=== PATIENT | female | born 1985 | race Caucasian/White ===

== ENCOUNTER 2018-09-20 05:17 | Emergency (ER) | payer MEDICAID, OTHER ==
[~2018-09-20] VITALS: Ht 154.9 cm; Wt 67.3 kg
[2018-09-20 05:18] VITALS: BP 115/58
[2018-09-20] MEDS ORDERED: LAMO200T2 (05:31)
[2018-09-20] MEDS ORDERED: CETI10TA (05:31)
[2018-09-20] MEDS ORDERED: LEVOTAB10 (05:31)
[2018-09-20] MEDS ORDERED: [UNRECOGNIZED DRUG - CODE] (05:31)
[2018-09-20] MEDS ORDERED: DICL100T6 (05:31)
[2018-09-20] MEDS ORDERED: ADDE25CA (05:31)
[2018-09-20] MEDS ORDERED: TOPI50TA9 (05:31)
[2018-09-20] MEDS ORDERED: TOPI25TA10 (05:31)
[2018-09-20] MEDS ORDERED: BUSP5TA (05:31)
[2018-09-20] MEDS ORDERED: AMOX500C (05:31)
[2018-09-20] MEDS ORDERED: CLON0.2T (05:31)
[2018-09-20] MEDS ORDERED: BUPR150T3 (05:31)
[2018-09-20] MEDS ORDERED: IBUP1TAB7 PO (09:18)
[2018-09-20] MEDS ORDERED: CLEO300C2 PO ×2 (09:18→09:26)
[2018-09-20] MEDS ORDERED: MUPI2OI TOP ×2 (09:18→09:26)
[2018-09-20] MEDS ORDERED: IBUP80TA PO (09:26)
== END 2018-09-20 09:31 | disposition home or self-care (01) ==
LOC: M ED 05:17
DX: L03.012 Cellulitis of left finger (principal); F17.200 Nicotine dependence, unspecified, uncomplicated; Z88.8 Allergy status to other drugs, medicaments and biological substances; Z88.2 Allergy status to sulfonamides; Z79.899 Other long term (current) drug therapy; Z79.2 Long term (current) use of antibiotics

== ENCOUNTER 2020-06-29 20:42 | Emergency (ER) | payer OTHER ==
[~2020-06-29] VITALS: Ht 154.9 cm; Wt 75.3 kg
[~2020-06-29 20:42] MED LIST: ADDE25CA; AMOX500C; BUPR150T3; BUSP5TA; CETI10TA; CLEO300C2 PO; CLON0.2T; DICL100T6; IBUP1TAB7 PO; IBUP80TA PO; LAMO200T3; LEVOTAB10; MUPI2OI TOP; TOPI25TA10; TOPI50TA9; [UNRECOGNIZED DRUG - CODE]
[2020-06-29] MEDS ORDERED: LOVE1INJ SC (20:53)
[2020-06-29] MEDS ORDERED: ACETAMINOPHEN TAB 650MG DOSE (2X325MG) PO ONE (21:45)
--- NOTE | 2020-06-29 22:32 | REPVR ---
PROCEDURE INFORMATION: Exam: XR Left Finger(s) Exam date and time: 06/29/2020 10:05 PM Age: 34 years old Clinical indication: Pain and injury or trauma; Other: Slammed 4th digit in door; Crushing; Left; Ring finger; Finger(s); Additional info: Slammed L ring finger in door TECHNIQUE: Imaging protocol: XR Left fingers. Views: Minimum 2 views. COMPARISON: No relevant prior studies available. FINDINGS: Bones/joints: Normal. Soft tissues: Normal. IMPRESSION: No acute osseous abnormality. Electronically signed by: Dayron Arnold On 06/29/2020 22:32:10 PM
[2020-06-29 22:47] VITALS: BP 109/76
== END 2020-06-29 23:00 | disposition home or self-care (01) ==
LOC: M ED 20:42
DX: S60.042A Contusion of left ring finger without damage to nail, initial encounter (principal); W23.0XXA Caught, crushed, jammed, or pinched between moving objects, initial encounter; Y92.89 Other specified places as the place of occurrence of the external cause; D68.0 Von Willebrand disease; Z79.899 Other long term (current) drug therapy; Z88.1 Allergy status to other antibiotic agents; Z88.2 Allergy status to sulfonamides; Z88.8 Allergy status to other drugs, medicaments and biological substances; F17.210 Nicotine dependence, cigarettes, uncomplicated

== ENCOUNTER → 2020-08-18 | Outpatient (CLI) | payer OTHER ==
[~2020-08-18] MED LIST changes: -BUPR150T3; +BUPR150T4; +LOVE1INJ SC
[2020-08-18 19:13] LABS: BASO # 0.1 10^3/uL (0.0-0.2); BASO % 0.9 % (0.0-1.0); EOS # 0.5 10^3/uL (0.0-0.5); EOS % 9.2 % (0.0-3.0); HEMATOCRIT 46.5 % (36.0-47.0); HEMOGLOBIN 14.7 g/dl (12.0-15.5); LYMPH # 2.1 10^3/uL (1.5-5.0); MEAN CORPUSCULAR HEMOGLOBIN 29.5 pg (27.0-33.0); MEAN CORPUSCULAR HGB CONC 31.6 g/dl (32.0-36.5); MEAN CORPUSCULAR VOLUME 93.2 fl (80.0-96.0); MONO # 0.5 10^3/uL (0.0-0.8); MONO % 9.2 % (0.0-5.0); NEUTROPHILS # 2.4 10^3/uL (1.5-8.5); NEUTROPHILS % 43.5 % (36.0-66.0); PLATELET COUNT, AUTOMATED 284 10^3/uL (150-450); RED BLOOD COUNT 4.99 10^6/uL (4.00-5.40); WHITE BLOOD COUNT 5.6 10^3/uL (4.0-10.0)
[2020-08-18 19:43] LABS: ALBUMIN 3.7 GM/DL (3.2-5.2); ALT/SGPT 69 U/L (12-78); BILIRUBIN,TOTAL 0.2 MG/DL (0.2-1.0); BLOOD UREA NITROGEN 9 MG/DL (7-18); CALCIUM LEVEL 9.1 MG/DL (8.5-10.1); CARBON DIOXIDE LEVEL 28 MEQ/L (21-32); CHLORIDE LEVEL 106 MEQ/L (98-107); GLOMERULAR FILTRATION RATE > 60.0 (>60); GLUCOSE, FASTING 101 MG/DL (70-100); POTASSIUM SERUM 4.2 MEQ/L (3.5-5.1); SODIUM LEVEL 140 MEQ/L (136-145); TOTAL PROTEIN 6.8 GM/DL (6.4-8.2)
== END ==
LOC: M LAB 18:39
PROVIDERS: ATTEND Internal Medicine Hematology & Oncology
DX: D68.61 Antiphospholipid syndrome (principal); R94.5 Abnormal results of liver function studies

== ENCOUNTER 2020-08-29 22:12 | Emergency (ER) | payer OTHER ==
[~2020-08-29] VITALS: Ht 154.9 cm; Wt 79.2 kg
--- OUTSIDE RECORDS SUMMARY | 2020-08-29 22:21 | CCD ---
Author Author Aditi Garrido Organization Unknown Address [address] [place] [address] Phone Care Team Providers Care Swimming Pool Installer Name Role Phone Hema Winnie PCP Allergies, Adverse Reactions, Alerts No Data in Section Problem List Concept Problem Description Status Start Date Created Date Resolv ed Date Snomed Code F43.12 Post-traumatic stress disorder, chronic Active 08/16/2020 F90.2 Attention-Deficit/Hyperactivity Disorder, Combined pre sentation Active 08/16/2020 Medications No Data in Section Social History Social History Element Description Concept Effective Date Smoking Status Unknown if ever smoked [id number] Immunizations No Data in Section Vital Signs No Data in Section Procedures Date Concept Id Description Targeted Site Concept Targeted Site Concept Type 08/15/2020 75917 Extended Individual Psychotherapy - 45 min CPT Patient has no history of implantable de vices Encounters Encounter Start Date End Date Encounter Type Description Diagnosis Di agnosis Desc Location Author First Name Author Last Name Npid Taxonomy Cod e Taxonomy Desc Phone Number Location Addr1 Location Addr2 Location [facility] Location [facility] [id number] 08/15/2020 08/15/2020 97370 Extended Individual Psych otherapy - 45 min F43.12 Post-traumatic stress disorder, chronic [facility] Hema Zhou [id number] Student in an O rganized Health Care Education/Training Program [id number] [address], [address] [facility] [address] Plan of Treatment No Data in Section Lab Results No Data in Section Instructions No Data in Section Insurance Providers Insurance Id Policy Effective Date Policy Thru Date Company N kyler [id number] 2020 [facility] e [id number] 2020 MEDICAID
--- OUTSIDE RECORDS SUMMARY | 2020-08-29 22:21 | CCD | Continuity of Care Document ---
Author Author [facility] Organization [facility] Address Unknown Phone Unavailable Care Team Providers Care Coke Drawer Name Role Phone Patricio KENDALL, Mercy Unavailable Unavailable Allergies, Adverse Reactions, Alerts Substance Reaction Status Criticality permethrin Active No Information HYDROXYCHLOROQUINE SULFATE Active No In formation PROGESTERONE, MICRONIZED Active No Info rmation HYDROXYCHLOROQUINE SULFATE Active No In formation Sulfa (Sulfonamide Antibiotics) Hives/Skin Ra sh Active No Information Medications Medication Instructions Dosage Effective Dates (start - stop) Sta tus Comments Wellbutrin XL 150 mg 24 hr tablet, extended release ta ke 1 tablet by oral route every day 150 MG - Active danazol 100 mg capsule take 1 capsule by oral route 2 times ever y day 100 MG - Active buspirone 10 mg tablet take 1 tablet by oral route 2 times every da y 10 MG - Active Lamictal 200 mg tablet take 1 tablet by oral route 2 times every da y 200 MG - Active clonidine HCl 0.1 mg tablet take 2 tablet by oral route 3 ti mes every day 0.2 MG - Active Zyrtec 10 mg capsule - Active buspirone 5 mg tablet take 1 tablet by oral route 2 times every day 5 MG - No Longer Active Adderall XR 25 mg capsule,extended release take 1 caps ule by oral route 2 times every day in the morning upon awakening 25 MG - No Longe r Active Wellbutrin 75 mg tablet take 1 tablet by oral route 3 times ever y day - No Longer Active Topamax 50 mg tablet take 1 tablet by oral route every day 50 M G - No Longer Active danazol 50 mg capsule take 1 capsule by oral route 2 times every day 50 MG - No Longer Active Problems Condition Effective Dates (start - stop) Clinical Status C omments Body mass index (BMI) 34.0-34.9, adult - Encounter for other general examination Raynaud's syndrome without gangrene Attention-deficit hyperactivity disorder, unspecified type Unspecified asthma, uncomplicated Endometriosis, unspecified Activated protein C resistance Personal history of other venous thrombosis and embolism Anxiety disorder, unspecified Major depressive disorder, single episode, unspecified Migraine w/o aura, not intractable, w/o status migrainosus Encntr screen for infections w sexl mode of transmiss Encounter for screening for human immunodeficiency virus Human immunodeficiency virus [HIV] counseling Other sex counseling Encounter for oth general cnsl and advice on contraception Encounter for test, result negative Encounter for oth general cnsl and advice on contraception Human immunodeficiency virus [HIV] counseling Other sex counseling Encntr for survey and mapping technician exam (general) (routine) w/o abn findings Encntr screen for infections w sexl mode of transmiss Other sex counseling Encntr screen for infections w sexl mode of transmiss High risk heterosexual behavior Encounter for oth general cnsl and advice on contraception Human immunodeficiency virus [HIV] counseling HIV Counseling HOME CARE RN Exam, Routine WWE STI Screening STI Counseling Atypical squamous cells of undetermined significance on cervical Papanicolaou smear - Active Procedures Procedure Date Est Pt PC Exp Prob Focused CVR Hot Worker.Svc. Other Results Test Name Date and Time Measure Units Reference Range Abnormal Flag St atus Comments No Information Advance Directives Directive Yes / No Effective Date File Name No Information Encounters Encounter Description Practice Location Reason(s) For Visit Diagnose s Date Provider Providers Copied on Encounter [facility], [address], [place], [id number], [place] tel:[phone] TROY Marcus Generic Primary Care (chief complaint) Encounter for other general examinationRaynaud's syndrome without gangreneAttention-deficit hyperactivity disorder, unspecified typeUnspecified asthma, uncomplicatedEndometriosis, unspecifiedActivated protein C resistance Personal history of other venous thrombosis and embolismAnxiety disorder, unspecifiedMajor depressive disorder, single episode, unspecifiedMigraine w/o aura, not intractable, w/o status migrainosus Patricio Madrid. [address] [place] [address], [id number], [place]. tel:[phone] Referring Provider: Mercy Curry, [address], [place], [id number]. tel:[phone] [facility], [address] [place] [address], [id number], [place] tel:[phone] [facility] [place] Encntr screen for i nfections w sexl mode of transmissEncounter for screening for human immunodeficiency virusHuman immunodeficiency virus [HIV] counselingOther sex counselingEncounter for oth general cnsl and advice on contraceptionEncounter for test, result negative Jorge Luis Kim. [address] [place] [address], [id number], [place]. tel:[phone] Referring Provider: Judy Kang, [address] [place] [address], [id number]. tel:[phone] [facility], [address] [place] [address], [id number], [place] tel:[phone] [facility] [place] Encounter for oth g eneral cnsl and advice on contraceptionHuman immunodeficiency virus [HIV] counselingBody mass index (BMI) 34.0-34.9, adultOther sex counselingEncntr for survey and mapping technician exam (general) (routine ) w/o abn findingsEncntr screen for infections w sexl mode of transmiss Issa Roberts. [address] [place] [address], [id number]. tel:[phone] Referring Provider: Alejandra Parsons, [address], [place], [id number]. tel:[phone] [facility], [address] [place] [address], [id number], [place] tel:[phone] [facility] [place] Other sex counselin gEncntr screen for infections w sexl mode of transmissHigh risk heterosexual behaviorEncounter for oth general cnsl and advice on contraceptionHuman immunodeficiency virus [HIV] counseling Issa Roberts. [address], [place], [id number]. tel:[phone] Referring Provider: Alejandra Parsons, [address], [place], [id number]. tel:[phone] [facility], [address], [place], [id number], [place] tel:[phone] [facility] HIV CounselingGYN E xam, Routine WWESTI ScreeningSTI Counseling Hermilaconcha Mays. [address] [place] [address], [id number], [place]. tel:[phone] Family History Family Member Diagnosis Age At Onset Mother Alcoholism Father Alcoholism Father COPD (Cause Of ) Paternal grandfather Cancer, unknown Father Diabetes mellitus Paternal grandmother Stroke Mother Lupus erythematosus Immunizations Vaccine Date Status Comments hepatitis A and hepatitis B vaccine administered Source: Other Provider tetanus toxoid, adsorbed administered Source: Other Provider measles, mumps and rubella virus vaccine adminis tered Source: Other Provider Payers Payer name Insurance type Covered libertarian ID Authorization(s ) [facility] CI [id number] Social History Type Description Quantity Date Captured Comments Alcohol Use Details Unknown Caffeine Use Details Unknown Tobacco Use Status No Information Smoking Status Never smoker Sex Female Vital Signs Date / Time: Height Weight BMI Pulse Rate Blood Pressure Temperatu re Respiratory Rate Body Surface Area Head Circumference BMI percentile Pulse Ox In haled Ox No Information Chief Complaint And Reason For Visit Most recent encounter only, dated '08/11/2020 13:00'. Generic Primary Care (chief complaint). Description: A lot of her doctors are fa r away as she lives in [place] and her providers are in [place]/ [place]. She n eeds another refill danazol. Would like help finding a oracle wms consultant because of factor 5. Is supposed to be on lovenox injections every 12 hours but has been ou t for almost a week. Reason For Referral Reason For Referral No Information Plan Of Treatment Date Type Action Status Goal Dietary management education, gu idance, and counseling completed Referral Referred To: Dairy Tester Ordered: Referrals: Other. Dairy Tester. Evaluate and treat Appointment date/timeframe: 1 Week ordered History Of Present Illness Encounter Date Complaint History Of Present Marianne toussaint Generic Primary Care A lot of her doctor s are far away as she lives in [place] and her providers are in [place]/ [place]. She needs another refill danazol. Would like help finding a oracle wms consultant because of factor 5. Is heath pposed to be on lovenox injections every 12 hours but has been out for almost a week. Functional Status Date Functional Assessment No Information Medications Administered Medication Instructions Dosage Effective Dates (start - stop) Sta tus Comments No Information Instructions Date Instruction Additional Informati on Dietary management education, guidance, and counseling Related to Body mass index (BMI) 34.0-34.9, adult Assessments Type Assessment Date No Information Goals Health Concern Goal Type Priority Status Date No Information Medical Equipment Description Device [place] Device Identifier Effective Julio es (start - stop) Status No Information Mental Status Date Cognitive Assessment Orientation - Oriented to ti me, place, person, situation.Normal Orientation Health Concerns Observation Date No Information Concern Status Date No Information Physical Examination Exam Findings Details Neurological Normal Level of consciousne ss - Normal. Orientation - Normal. Psychiatric Normal Orientation - [place] ed to time, place, person & situation.
--- OUTSIDE RECORDS SUMMARY | 2020-08-29 22:21 | CCD ---
Author Author Aditi Garrido Organization Unknown Address [address] [place] [address] Phone Care Team Providers Care As400 Programmer Analyst Name Role Phone Hema Winnie PCP Allergies, Adverse Reactions, Alerts No Data in Section Problem List Concept Problem Description Status Start Date Created Date Resolv ed Date Snomed Code F43.12 Post-traumatic stress disorder, chronic Active 08/15/2020 F90.2 Attention-Deficit/Hyperactivity Disorder, Combined pre sentation Active 08/15/2020 Medications No Data in Section Social History Social History Element Description Concept Effective Date Smoking Status Unknown if ever smoked [id number] Immunizations No Data in Section Vital Signs No Data in Section Procedures Date Concept Id Description Targeted Site Concept Targeted Site Concept Type 08/15/2020 59958 Extended Individual Psychotherapy - 45 min CPT Patient has no history of implantable de vices Encounters Encounter Start Date End Date Encounter Type Description Diagnosis Di agnosis Desc Location Author First Name Author Last Name Npid Taxonomy Cod e Taxonomy Desc Phone Number Location Addr1 Location Addr2 Location [facility] [place] Location [facility] Location [facility] [id number] 08/15/2020 08/15/2020 82628 Extended Individual Psych otherapy - 45 min F43.12 Post-traumatic stress disorder, chronic [facility] Hema Zhou [id number] Student in an O rganized Health Care Education/Training Program [id number] [address], [place] [address] [facility] [address] Plan of Treatment No Data in Section Lab Results No Data in Section Instructions No Data in Section Insurance Providers Insurance Id Policy Effective Date Policy Thru Date Company N kyler [id number] 2020 [facility] e [id number] 2020 MEDICAID
--- OUTSIDE RECORDS SUMMARY | 2020-08-29 22:21 | CCD | Continuity of Care Document ---
Author Author [facility] Organization [facility] Address Unknown Phone Unavailable Care Team Providers Care Maintenance Parts Technician Name Role Phone Maritza James MD Unavailable Unavailable Allergies, Adverse Reactions, Alerts Substance [...] Active Zyrtec 10 mg capsule - Active Problems Condition Effective Dates (start - stop) Clinical Status C edithments Body mass index (BMI) 34.0-34.9, adult - [...] [HIV] counseling Other sex counseling Encntr for director of religious life exam (general) (routine) w/o abn findings Encntr screen for infections w sexl mode of transmiss Other sex counseling Encntr screen for infections w sexl mode of transmiss High risk heterosexual behavior Encounter for oth general cnsl and advice on contraception Human immunodeficiency virus [HIV] counseling HIV Counseling HABILITATION ASSISTANT Exam, Routine WWE STI Screening STI Counseling Atypical squamous cells of undetermined significance on cervical Papanicolaou smear - Active Procedures Procedure Date No Information Results Test Name Date and Time Measure Units Reference Range Abnormal Flag St atus Comments No Information Advance Directives Directive Yes / No Effective Date File Name No Information Encounters Encounter Description Practice Location Reason(s) For Visit Diagnose s Date Provider Providers Copied on Encounter [facility], [address] [place] [address], [address] [place] [address], tel:[phone] TROY Marcus No Information Jacob Salas. [address] [place] [address], [id number], . tel:[phone] [facility], [address] [place] [address], [id number], tel:[phone] TROY Marcus Encounter for other general examinationRaynaud's syndrome without gangreneAttention-deficit hyperactivity disorder, unspecified typeUnspecified asthma, uncomplicatedEndometriosis, unspecifiedActivated protein C resistancePersonal history of other venous thrombosis and embolismAnxiety disorder, unspecifiedMajor depressive disorder, single episode, unspecifiedMigraine w/o aura, not intractable, w/o status migrainosus Patricio Madrid. [address] [place] [address], [id number], . tel:[phone] Referring Provider: Mercy Curry, [address] [place] [address], [id number]. tel:[phone] [facility], [address] [place] [address], [id number], [place] tel:[phone] [facility] [place] Encntr screen for i nfections w sexl mode of transmissEncounter for screening for human immunodeficiency virusHuman immunodeficiency virus [HIV] counselingOther sex counselingEncounter for oth general cnsl and advice on contraceptionEncounter for test, result negative Jorge Luis Kim. [address] [place] [address], [id number], [place]. tel:[phone] Referring Provider: Judy Kang, [address] [place] [address], [id number]. tel:[phone] [facility], [address] [place] [address], [id number], [place] tel:[phone] [facility] [place] Encounter for oth g eneral cnsl and advice on contraceptionHuman immunodeficiency virus [HIV] counselingBody mass index (BMI) 34.0-34.9, adultOther sex counselingEncntr for director of religious life exam (general) (routine ) w/o abn findingsEncntr screen for infections w sexl mode of transmiss Issa Roberts. [address] [place] [address], [id number]. tel:[phone] Referring Provider: Alejandra Parsons, [address] [place] [address], [id number]. tel:[phone] [facility], [address] [place] [address], [id number], [place] tel:[phone] [facility] [place] Other sex counselin gEncntr screen for infections w sexl mode of transmissHigh risk heterosexual behaviorEncounter for oth general cnsl and advice on contraceptionHuman immunodeficiency virus [HIV] counseling Issa Roberts. [address] [place] [address], [id number]. tel:[phone] Referring Provider: Alejandra Parsons, [address] [place] [address], [id number]. tel:[phone] [facility], [address] [place] [address], [id number], tel:[phone] JOSSUEVICTOR M Cortes HIV CounselingIRON E hill, Routine WWESTI ScreeningSTI Counseling eHrmilaconcha Mays. [address], [place], [id number], . tel:[phone] Family History Family Member Diagnosis Age At [...] Provider Payers Payer name Insurance type Covered republican ID Authorization(s ) [facility] CI [id number] Social History Type Description Quantity Date Captured Comments Alcohol Use Details Unknown Caffeine Use Details Unknown Tobacco Use Status No Information Smoking Status Never smoker Sex Female Vital Signs Date / Time: Height Weight BMI Pulse Rate Blood Pressure Temperatu re Respiratory Rate Body Surface Area Head Circumference BMI percentile Pulse Ox In haled Ox No Information Chief Complaint And Reason For Visit No Information Reason For Referral Reason For Referral No Information Plan Of Treatment Date Type Action Status Goal Dietary management education, gu idance, and counseling completed Referral Referred To: Diamond Sizer Ordered: Referrals: Other. Diamond Sizer. Evaluate and treat Appointment date/timeframe: 1 Week ordered History Of Present Illness Encounter Date Complaint History Of Present I llness No Information Functional Status Date Functional Assessment No Information Medications Administered Medication Instructions Dosage Effective Dates (start - stop) Sta tu Comments No Information Instructions Date Instruction Additional Informati on Dietary management education, guidance, and counseling Related to Body mass index (BMI) 34.0-34.9, adult Assessments Type Assessment Date No Information Goals Health Concern Goal Type Priority Status Date No Information Medical Equipment Description Device [place] Device Identifier Effective Julio es (start - stop) Status No Information Mental Status Date Cognitive Assessment No Information Health Concerns Observation Date No Information Concern Status Date No Information Physical Examination Exam Findings Details No Information
--- OUTSIDE RECORDS SUMMARY | 2020-08-29 22:22 | CCD ---
Author Author Aditi Arechiga Organization Unknown Address [address] [address] Phone Care Team Providers Care Human Resources Receptionist Name Role Phone Marielena Arechiga PCP Chief Complaint and Reason for Visit Chief Complaint Allergies, Adverse Reactions, Alerts No Data in Section Problem List Concept Problem Description Status Start Date Created Date Resolv ed Date Snomed Code F43.9 Unspecified Trauma- and Stressor-Related Disorder Active 07/26/2020 Medications No Data in Section Social History Social History Element Description Concept Effective Date Smoking Status Unknown if ever smoked [id number] Immunizations No Data in Section Vital Signs No Data in Section Procedures Date Concept Id Description Targeted Site Concept Targeted Site Concept Type 07/25/2020 83070 Brief Individual Psychotherapy - 30 min CPT Patient has no history of implantable de vices Encounters Encounter Start Date End Date Encounter Type Description Diagnosis Di agnosis Desc Location Author First Name Author Last Name Npid Taxonomy Cod e Taxonomy Desc Phone Number Location Addr1 Location Addr2 Location [facility] Location [facility] Location [facility] [id number] 07/25/2020 07/25/2020 81326 Brief Individual Psychoth erapy - 30 min F43.9 Reaction to severe stress, unspecified [facility] Marielena [phone] [id number] Wound Care Specialist [id number] [address], [place] 1 [facility] [address] Plan of Treatment No Data in Section Lab Results No Data in Section Instructions No Data in Section Insurance Providers Insurance Id Policy Effective Date Policy Thru Date Company N kyler [id number] 2020 [facility] e [id number] 2020 MEDICAID
--- OUTSIDE RECORDS SUMMARY | 2020-08-29 22:22 | CCD ---
Author Author [facility] Organization [facility] Address Unknown Phone Unavailable Care Team Providers Care Supervisor [employer] Name Role Phone PIIT, CARMELI FLOS Unavailable Unavailable PIIT, CARMELI FLOS Unavailable Unavailable PIIT, CARMELI FLOS Unavailable Unavailable PIIT, CARMELI FLOS Unavailable Unavailable PIIT, CARMELI FLOS Unavailable Unavailable PIIT, CARMELI FLOS Unavailable Unavailable PIIT, CARMELI FLOS Unavailable Unavailable PIIT, CARMELI FLOS Unavailable Unavailable PIIT, CARMELI FLOS Unavailable Unavailable PIIT, CARMELI FLOS Unavailable Unavailable PIIT, CARMELI FLOS Unavailable Unavailable PIIT, CARMELI FLOS Unavailable Unavailable PIIT, CARMELI FLOS Unavailable Unavailable PIIT, CARMELI FLOS Unavailable Unavailable PIIT, CARMELI FLOS Unavailable Unavailable PIIT, CARMELI FLOS Unavailable Unavailable PIIT, CARMELI FLOS Unavailable Unavailable PIIT, CARMELI FLOS Unavailable Unavailable PIIT, CARMELI FLOS Unavailable Unavailable PIIT, CARMELI FLOS Unavailable Unavailable PIIT, CARMELI FLOS Unavailable Unavailable PIIT, CARMELI FLOS Unavailable Unavailable PIIT, CARMELI FLOS Unavailable Unavailable PIIT, CARMELI FLOS Unavailable Unavailable PIIT, CARMELI FLOS Unavailable Unavailable Raudel Tejada MD Unavailable Unavailable Raudel Tejada MD Unavailable Unavailable Raudel Tejada MD Unavailable Unavailable Raudel Tejada MD Unavailable Unavailable Raudel Tejada MD Unavailable Unavailable Wayne Henning D.O. Unavailable Unavailable Delmy Garcia ART HISTORY INSTRUCTOR Unavailable Unavailable KENROY PHELPS MD Unavailable Unavailable HERO GARCIA Unavailable Unavailable HERO GARCIA Unavailable Unavailable HERO GARCIA ESTELA Unavailable Unavailable Kocan, J Mago ELECTRIC PILE DRIVER OPERATOR Unavailable Unavailable Kocan, J Mago ELECTRIC PILE DRIVER OPERATOR Unavailable Unavailable Kocan, J Mago ELECTRIC PILE DRIVER OPERATOR Unavailable Unavailable Kocan, J Mago ELECTRIC PILE DRIVER OPERATOR Unavailable Unavailable Kocan, J Mago ELECTRIC PILE DRIVER OPERATOR Unavailable Unavailable Kocan, J Mago ELECTRIC PILE DRIVER OPERATOR Unavailable Unavailable Kocan, J Mago ELECTRIC PILE DRIVER OPERATOR Unavailable Unavailable Kocan, J Mago ELECTRIC PILE DRIVER OPERATOR Unavailable Unavailable Kocan, J Mago ELECTRIC PILE DRIVER OPERATOR Unavailable Unavailable Kocan, J Mago ELECTRIC PILE DRIVER OPERATOR Unavailable Unavailable Kocan, J Mago ELECTRIC PILE DRIVER OPERATOR Unavailable Unavailable Kocan, J Mago ELECTRIC PILE DRIVER OPERATOR Unavailable Unavailable Kocan, J Mago ELECTRIC PILE DRIVER OPERATOR Unavailable Unavailable Emily Phelps M.D. Unavailable Unavailable Cas Orellana MD Unavailable Unavailable Papo, M Nancy VIDEOTAPE EDITOR Unavailable Papo, M Nancy VIDEOTAPE EDITOR Unavailable Papo, M Nancy VIDEOTAPE EDITOR Unavailable Papo, M Nancy VIDEOTAPE EDITOR Unavailable Papo, M Nancy VIDEOTAPE EDITOR Unavailable Barros, M Nancy VIDEOTAPE EDITOR Unavailable Barros, M Nancy VIDEOTAPE EDITOR Unavailable Papo, M Nancy VIDEOTAPE EDITOR Unavailable Esteban, [id number] MD Cas PATIÑO Unavailable [phone] Esteban, [id number] MD Cas PATIÑO Unavailable [phone] Esteban, [id number] MD Cas PATIÑO Unavailable [phone] Esteban, [id number] MD Cas PATIÑO Unavailable [phone] Esteban, [id number] MD Cas MD Unavailable Esteban, [id number] MD Acs MD Unavailable Esteban, [id number] MD Cas MD Unavailable Esteban, [id number] MD Csa MD Unavailable Esteban, [id number] MD Cas MD Unavailable Esteban, [id number] MD Cas MD Unavailable Esteban, [id number] MD Cas MD Unavailable Esteban, [id number] MD Cas MD Unavailable Esteban, [id number] MD Cas MD Unavailable Esteban, [id number] MD Cas MD Unavailable Esteban, [id number] MD Cas MD Unavailable Esteban, [id number] MD Cas MD Unavailable Esteban, [id number] MD Cas MD Unavailable Esteban, [id number] MD Cas MD Unavailable Esteban, [id number] MD Cas MD Unavailable Esteban, [id number] MD Cas MD Unavailable Esteban, [id number] MD Cas MD Unavailable Esteban, [id number] MD Cas MD Unavailable Esteban, [id number] MD Cas MD Unavailable Esteban, [id number] MD Cas MD Unavailable Esteban, [id number] MD Cas MD Unavailable Esteban, [id number] MD Cas MD Unavailable Esteban, [id number] MD Cas MD Unavailable [phone] Esteban, [id number] MD Cas PATIÑO Unavailable [phone] Esteban, [id number] MD Cas PATIÑO Unavailable [phone] Esteban, [id number] MD Cas PATIÑO Unavailable [phone] Esteban, [id number] MD Cas PATIÑO Unavailable [phone] NOSTROM, AMY ART HISTORY INSTRUCTOR Unavailable Unavailable NOSTROM, AMY ART HISTORY INSTRUCTOR Unavailable Unavailable NOSTROM, AMY ART HISTORY INSTRUCTOR Unavailable Unavailable NOSTROM, AMY ART HISTORY INSTRUCTOR Unavailable Unavailable NOSTROM, AMY ART HISTORY INSTRUCTOR Unavailable Unavailable NOSTROM, AMY ART HISTORY INSTRUCTOR Unavailable Unavailable NOSTROM, AMY ART HISTORY INSTRUCTOR Unavailable Unavailable NOSTROM, AMY ART HISTORY INSTRUCTOR Unavailable Unavailable NOSTROM, AMY ART HISTORY INSTRUCTOR Unavailable Unavailable NOSTROM, AMY ART HISTORY INSTRUCTOR Unavailable Unavailable NOSTROM, AMY ART HISTORY INSTRUCTOR Unavailable Unavailable NOSTROM, AMY ART HISTORY INSTRUCTOR Unavailable Unavailable NOSTROM, AMY ART HISTORY INSTRUCTOR Unavailable Unavailable Wayne Huerta D.O. Unavailable Unavailable Curry, Mercy Unavailable Unavailable Curry, Mercy Unavailable Unavailable Curry, Mercy Unavailable Unavailable ConteJuan parry MD Unavailable [phone] Conte, Juan PATIÑO Unavailable [phone] Conte, Juan PATIÑO Unavailable [phone] Conte, Juan PATIÑO Unavailable [phone] ConteJuan MD Unavailable [phone] ConteJuan MD Unavailable [phone] Conte, Juan PATIÑO Unavailable [phone] ConteJuan MD Unavailable [phone] Conte, Juan PATIÑO Unavailable [phone] Mya James MD Unavailable Unavailable Nostrom, R Amy ELECTRIC PILE DRIVER OPERATOR Unavailable Unavailable Winnie Garrido Unavailable Emily Shah M.D. Unavailable Unavailable Emily Shah M.D. Unavailable Unavailable Emily Shah M.D. Unavailable Unavailable Juan Conte MD Unavailable Unavailable Marielena Arechiga Unavailable Jacob, Mya Balderas MD Unavailable Unavailable Jacob, Mya Balderas MD Unavailable Unavailable Emily Vásquez M.D. Unavailable Unavailable Emily Vásquez M.D. Unavailable Unavailable Emily Vásquez M.D. Unavailable Unavailable Emily Vásquez M.D. Unavailable Unavailable Emily Vásquez M.D. Unavailable Unavailable Emily Devlin M.D. Unavailable Unavailable Jacob, Mya Salas MD Unavailable Unavailable Jacob, Mya Salas MD Unavailable Unavailable Jacob, Mya Salas MD Unavailable Unavailable Jacob, Mya Salas MD Unavailable Unavailable Jacob, Mya Salas MD Unavailable Unavailable Jacob, Mya Salas MD Unavailable Unavailable Jacob, Mya Salas MD Unavailable Unavailable Jacob, Mya Salas MD Unavailable Unavailable Jacob, Mya Salas MD Unavailable Unavailable Jacob, Mya Salas MD Unavailable Unavailable Jacob, Mya Salas MD Unavailable Unavailable Jacob, Mya Salas MD Unavailable Unavailable Jacob, Mya Salas MD Unavailable Unavailable Jacob, Mya Salas MD Unavailable Unavailable Jacob, Mya Salas MD Unavailable Unavailable Jacob, Mya Salas MD Unavailable Unavailable Jacob, Mya Salas MD Unavailable Unavailable Jacob, Mya Salas MD Unavailable Unavailable Jacob, Mya Salas MD Unavailable Unavailable Jacob, Mya Salas MD Unavailable Unavailable Jacob, May Salas MD Unavailable Unavailable Jacob, Mya Salas MD Unavailable Unavailable Jacob, Mya Salas MD Unavailable Unavailable Jacob, Mya Salas MD Unavailable Unavailable Jacob, Mya Salas MD Unavailable Unavailable Jacob, Mya Salas MD Unavailable Unavailable Jacob, Mya Salas MD Unavailable Unavailable Jacob, Mya Salas MD Unavailable Unavailable Jacob, Mya Salas MD Unavailable Unavailable Jacob, Mya Salas MD Unavailable Unavailable Jacob, Mya Salas MD Unavailable Unavailable Jacob, Mya Salas MD Unavailable Unavailable Jacob, Mya Salas MD Unavailable Unavailable Jacob, Mya Salas MD Unavailable Unavailable Jacob, Mya Salas MD Unavailable Unavailable Jacob, Mya Salas MD Unavailable Unavailable Jacob, Mya Salas MD Unavailable Unavailable Jacob, A Maritza PATIÑO Unavailable Unavailable Jacob, A Maritza PATIÑO Unavailable Unavailable Jacob, Mya Salas MD Unavailable Unavailable Jacob, Mya Salas MD Unavailable Unavailable Jacob, Mya Salas MD Unavailable Unavailable Jacob, Mya Salas MD Unavailable Unavailable Jacob, Mya Salas MD Unavailable Unavailable Jacob, Mya Salas MD Unavailable Unavailable Jacob, Mya Salas MD Unavailable Unavailable Jacob, Mya Salas MD Unavailable Unavailable Jacob, Mya Salas MD Unavailable Unavailable Jacob, Mya Salas MD Unavailable Unavailable Jacob, Mya Salas MD Unavailable Unavailable Jacob, Mya Salas MD Unavailable Unavailable Jacob, Mya Salas MD Unavailable Unavailable Jacob, Mya Salas MD Unavailable Unavailable Jacob, Mya Salas MD Unavailable Unavailable Jacob, Mya Salas MD Unavailable Unavailable Jacob, Mya Salas MD Unavailable Unavailable Jacob, Mya Salas MD Unavailable Unavailable Jacob, Mya Salas MD Unavailable Unavailable Jacob, A Maritza PATIÑO Unavailable Unavailable Jacob, Mya Salas MD Unavailable Unavailable Jacob, Mya Salas MD Unavailable Unavailable Jacob, A Maritza PATIÑO Unavailable Unavailable Jacob, Mya Salas MD Unavailable Unavailable Jacob, A Maritza PATIÑO Unavailable Unavailable Jacob, Mya Salas MD Unavailable Unavailable Jacob, Mya Salas MD Unavailable Unavailable Jacob, A Maritza PATIÑO Unavailable Unavailable Jacob, Mya Salas MD Unavailable Unavailable Jacob, Mya Salas MD Unavailable Unavailable Jacob, Mya Salas MD Unavailable Unavailable Jacob, Mya Salas MD Unavailable Unavailable Jacob, Mya Salas MD Unavailable Unavailable Jacob, Mya Salas MD Unavailable Unavailable Jacob, Mya Salas MD Unavailable Unavailable Jacob, Mya Salas MD Unavailable Unavailable James Garcia MD Unavailable Unavailable James Garcia MD Unavailable Unavailable James Garcia MD Unavailable Unavailable James Garcia MD Unavailable Unavailable James Garcia MD Unavailable Unavailable James Garcia MD Unavailable Unavailable James Garcia MD Unavailable Unavailable James Garcia MD Unavailable Unavailable James Garcia MD Unavailable Unavailable James Garcia MD Unavailable Unavailable James Garcia MD Unavailable Unavailable James Garcia MD Unavailable Unavailable James Garcia MD Unavailable Unavailable DIANN MONZON MD Unavailable Unavailable DIANN MONZON MD Unavailable Unavailable DIANN MONZON MD Unavailable Unavailable DIANN MONZON MD Unavailable Unavailable DIANN MONZON MD Unavailable Unavailable DIANN MONZON MD Unavailable Unavailable DIANN MONZON MD Unavailable Unavailable DIANN MONZON MD Unavailable Unavailable DIANN MONZON MD Unavailable Unavailable DIANN MONZON MD Unavailable Unavailable DIANN MONZON MD Unavailable Unavailable DIANN MONZON MD Unavailable Unavailable DIANN MONZON MD Unavailable Unavailable DIANN MONZON MD Unavailable Unavailable DIANN MONZON MD Unavailable Unavailable DIANN MONZON MD Unavailable Unavailable Re-disclosure Warning The records that you are about to access may contain information from federally-assisted alcohol or drug abuse programs. If such information is present, then the following federally mandated warning applies: This information has been disclosed to you from records protected by federal confidentiality rules (42 CFR part 2). The federal rules prohibit you from making any further disclosure of this information unless further disclosure is expressly permitted by the written consent of the person to whom it pertains or as otherwise permitted by 42 CFR part 2. A general authorization for the release of medical or other information is NOT sufficient for this purpose. The Federal rules restrict any use of the information to criminally investigate or prosecute any alcohol or drug abuse patient.The records that you are about to access may contain highly sensitive health information, the redisclosure of which is protected by Article 27-F of the [facility] Public Health law. If you continue you may have access to information: Regarding HIV / AIDS; Provided by facilities licensed or operated by the [facility] Office of Mental Health; or Provided by the [facility] Office for People With Developmental Disabilities. If such information is present, then the following [facility] mandated warning applies: This information has been disclosed to you from confidential records which are protected by state law. State law prohibits you from making any further disclosure of this information without the specific written consent of the person to whom it pertains, or as otherwise permitted by law. Any unauthorized further disclosure in violation of state law may result in a fine or alf sentence or both. A general authorization for the release of medical or other information is NOT sufficient authorization for further disc losure. Allergies and Adverse Reactions Type Description Substance Reaction Status Data Source(s ) Drug allergy permethrin Permethrin Active [facility] Drug allergy Drug allergy Environmental [facility] Family History Family Member Name Family Member Gender Family Member Status Date o f Status Description Data Source(s) Unknown Female Diagnosis 04/04/2014 12:00:00 AM EDT [facility] ([facility]) Unknown Female Diagnosis 04/04/2014 12:00:00 AM EDT [facility] ([facility]) Unknown Unknown Problem [facility] (Dr Larry Jett) siblings and children Encounters Encounter Providers Location Date Indications Data Source(s ) Extended Individual Psychotherapy - 45 min Attender: Shaye fermin [facility] 08/29/2020 03:00:00 AM EST - 08/29/2020 03:00:00 AM EST [facility] ([facility]) Attender: Winnie Garrido 08/29/2020 12:00:00 AM EST [facility] ([facility]) Attender: Maritza Marcus 0 08/24/2020 04:54:00 PM EST - 08/24/2020 04:54:00 PM EST [facility] ([facility]) Extended Individual Psychotherapy - 45 min Attender: Shaye Garrido [facility] 08/15/2020 03:00:00 AM EST - 08/15/2020 03:00:00 AM EST [facility] ([facility]) Attender: Winnie Garrido 08/15/2020 12:00:00 AM EST [facility] ([facility]) Attender: [facility] 08/11 01:00:00 PM EST - 08/11/2020 01:00:00 PM EST Migraine w/o aura, not intractable, w/o status migrainosusMajor depressive disorder, single episode, unspecifiedAnxiety disorder, unspecifiedPersonal history of other venous thrombosis and embolismAc tivated protein C resistanceEndometriosis, unspecifiedUnspecified asthma, uncomplicatedAttention-deficit hyperactivity disorder, unspecified typeRaynaud's syndrome without gangreneEncounter for other general examination [facility] ([facility]) Migraine w/o aura, not intractable, w/o status migrainosus Major depressive disorder, single episod e, unspecified Anxiety disorder, unspecified Personal history of other venous thrombo sis and embolism Activated protein C resistance Endometriosis, unspecified Unspecified asthma, uncomplicated Attention-deficit hyperactivity disorder , unspecified type Raynaud's syndrome without gangrene Encounter for other general examination Psychiatric Diagnostic Evaluation (Non-Medical) Attender: Yvonne Garrido [facility] 08/01/2020 03:00:00 AM EST - 08/01/2020 03:00:00 AM EST [facility] ([facility]) Attender: Winnie Garrido 08/01/2020 12:00:00 AM EST [facility] ([facility]) Brief Individual Psychotherapy - 30 min Attender: Marielena bell [facility] Kandi 07/25/2020 02:00:00 AM EST - 07/25/2020 02:00:00 AM EST [facility] ([facility]) Attender: Marielena Arechiga 07/25/2020 12:00:00 AM EST [facility] ([facility]) Preadmit Attender: Juan Conte MD CPSCAORT-ONCPDMED 12:00:00 AM EST FU DVT DISCUSS DENTAL WORK [facility] FU DVT DISCUSS DENTAL WORK Emergency Attender: Himanshu Tejada MD SURG-ER 05/14 01:36:00 AM EST - 05/24/2020 06:11:00 AM EST [facility] Patient discharged. Emergency SURG-ER 05/16/2020 08:40:00 PM EST [facility]. Patient discharged. Outpatient Attender: Juan Conte MDConsultant: Farzad Phelps M.D. SURG-ULTRA 05/11/2020 10:45:00 AM EDT [facility]. Emergency Attender: Vasu Devlin M.D.Referrer: DIANN BARAHONA MD SURG-ER 05/10/2020 09:11:00 PM EDT - 05/11/2020 01:47:00 AM EDT [facility]. Patient discharged. Outpatient [facility] 05/04/2020 01:20:00 PM EDT - 05/04/2020 01:21:00 PM EDT [facility] Patient discharged. Outpatient Attender: Juan Conte MD CPSCAORT-ONCPDMED 08:27:00 AM EDT - 05/01/2020 08:28:00 AM EDT 2YR FU FACTOR v LEIDEN MUTATION [facility] 2YR FU FACTOR v LEIDEN MUTATION Patient discharged. Emergency Attender: Karel Vásquez M.D. SURG-ER 04/15 07:25:00 PM EDT - 04/16/2020 01:18:00 AM EDT [facility]. Patient discharged. Emergency Attender: Karel Vásquez M.D. SURG-ER 04/08 09:13:00 PM EDT - 04/09/2020 02:13:00 AM EDT [facility]. Patient discharged. Preadmit Attender: KENROY PHELPS MD 03/06/2020 10:56:00 AM EDT [facility] Inpatient Attender: Sherrie James MD Attender: Sherrie James MDAdmitter: Sherrie James MDConsultant: ESTELA GARCIAConsultant: Estela Garcia NPConsultant: Amy Grewal RNPConsultant: AMY GREWAL ART HISTORY INSTRUCTOR CPSCAORT-OBSERV 02/23/2020 02:13:00 PM EDT - 02/26/2020 04:40:00 PM EDT INTRACTABLE VOMITING; ENTEROCOLITIS [facility] INTRACTABLE VOMITING; ENTEROCOLITIS Patient discharged. Emergency Attender: Talib Huerta D.O. SURG-ER 09:40:00 PM EDT - 02/22/2020 06:54:00 AM EDT [facility]. Patient discharged. Emergency Attender: Estela Henning D.O. SURG-ER 12:35:00 AM EDT - 01/22/2020 04:46:00 AM EDT [facility]. Patient discharged. Outpatient Attender: PROSPER MALONEY-IMAPD 01/11/2020 1 1:18:00 AM EDT - 01/11/2020 11:19:00 AM EDT R06.02 [facility] R06.02 Patient discharged. Emergency SURG-ER 01/03/2020 04:49:00 PM EDT [facility]. Patient discharged. Outpatient Attender: Hao Garcia MD CPSCAORT-CPSCADER 0 04:15:00 PM EDT - 11/23/2019 04:16:00 PM EDT [facility] Patient discharged. Outpatient Attender: PROSPER MEJIAORT-CPSNFFPP 11/17/2019 01:43:00 PM EDT - 11/17/2019 01:44:00 PM EDT [facility] Patient discharged. Preadmit Attender: Mago MAGALLON CPSCAORT-PRSLAPT 10/19/2019 12:00:00 AM EDT RIGHT SHOULDER PAIN [facility] RIGHT SHOULDER PAIN Preadmit Attender: PROSPER THOMAS CPSCAORT-IMAPD 10/05/2019 11:00:00 AM EDT SOB [facility] SOB Outpatient Attender: Cas Orellana MDAttender: [id number] Cas Orellana MD CPSCAORT-CPSCARHE 09/21/2019 09:53:00 AM EDT - 09/21/2019 09:54:00 AM ED T I73.00 [facility] I73.00 Patient discharged. Outpatient Attender: PROSPER MONTANOCAORT-CPSNFFPP 09/14/2019 10:24:00 AM EST - 09/14/2019 10:25:00 AM EST [facility] Patient discharged. Outpatient Attender: Mago MAGALLON CPSCAORT-CPSOMPMC 12/2019 07:55:00 AM EST - 08/19/2019 07:56:00 AM EST [facility] Patient discharged. Outpatient Attender: Nancy WILLIAMP CPSCAORT-CPSCAORT 1 09:10:00 AM EST - 07/13/2019 09:11:00 AM EST [facility] Patient discharged. Emergency ER-ER 07/08/2019 11:40:00 PM [facility]. Patient discharged. [address] [place] [address] 07/05/2019 12:00:00 AM EST eCW1 ([facility]) Emergency Attender: Jonathan Shah M.D. ER-ER 03:32:00 PM EST - 06/30/2019 04:42:00 PM [facility]. Patient discharged. Medications Medication Brand Name Start Date Product Form Dose Route Admi nistrative Instructions Pharmacy Instructions Status Indications Reaction Description Data Source(s) Acetaminophen 325 MG / Oxycodone Hydroch loride 5 MG Oral Tablet [Percocet] Oxycodone HCl/Acetaminophen (Percocet 5-325 MG Tablet) 1 EACH TABLET Oxycodone HCl/Acetaminophen (Percocet 5-325 MG Tablet) 1 EACH TABLET 05/11/2020 12:00:00 AM EDT 1 completed Every 6 Hrs 05 00,1100,1700,23 as needed [facility] Acetaminophen 325 MG / Oxycodone Hydroch loride 5 MG Oral Tablet [Percocet] Oxycodone HCl/Acetaminophen (Percocet 5-325 MG Tablet) 1 EACH TABLET Oxycodone HCl/Acetaminophen (Percocet 5-325 MG Tablet) 1 EACH TABLET 05/11/2020 12:00:00 AM EDT 1 completed Every 6 Hrs 05 00,1100,1700,23 as needed [facility] Acetaminophen 325 MG / Oxycodone Hydroch loride 5 MG Oral Tablet [Percocet] Oxycodone HCl/Acetaminophen (Percocet 5-325 MG Tablet) 1 EACH TABLET Oxycodone HCl/Acetaminophen (Percocet 5-325 MG Tablet) 1 EACH TABLET 05/11/2020 12:00:00 AM EDT 1 completed Every 6 Hrs 05 00,1100,1700,23 as needed [facility] Wellbutrin 75 mg tablet bupropion HCl completed take 1 tablet by oral route 3 times every day [facility] ([facility]) Danazol 50 MG Oral Capsule danazol 50 mg capsule danazol 50 mg caps ule 1.00 {capsule} ORAL completed take 1 capsule by or al route 2 times every day [facility] ([facility]) buspirone hydrochloride 5 MG Oral Tablet buspirone 5 m g tablet buspirone 5 mg tablet 1 {tablet} ORAL completed miguelina e 1 tablet by oral route 2 times every day [facility] ([facility]) topiramate 50 MG Oral Tablet [Topamax] Topamax 50 mg t ablet Topamax 50 mg tablet 1 {tablet} ORAL completed topiramate 50 MG Oral Tablet [Topamax] [facility] ([facility]) 24 HR Amphetamine aspartate 6.25 MG / Am phetamine Sulfate 6.25 MG / Dextroamphetamine saccharate 6.25 MG / Dextroamphetamine Sulfate 6.25 MG Extended Release Oral Capsule [Adderall] Adderall XR 25 mg capsule,extended release Adderall XR 25 mg capsule,extended release 1 {capsule} O RAL completed 24 HR amphetamine as partate 6.25 MG / amphetamine sulfate 6.25 MG / dextroamphetamine saccharate 6.25 MG / dextroamphetamine sulfate 6.25 MG Extended Release Oral Capsule [Adderall] [facility] ([facility]) Insurance Providers Payer name Policy type / Coverage type Policy ID Covered libertarian ID Covered libertarian's relationship to earl Policy Earl Plan Information [employer] COMMUNITY PLAN [id number] [id number] SP [id number] [facility] NYCDFHP self [id number] [facility] COMMUNITY [id number] Unemploye d [id number] [facility](MCAID) O [id number] S [id number] [facility] COMMUNITY PLAN [id number] SP [id number] [facility] [id number] S [id number] ANSI-Commercial [id number] ANSI-Commercial [id number] [facility] COMMUNITY PLAN [id number] SP [id number] ANSI-Commercial [id number] MEDICAID [id number] SP [id number] ANSI-Commercial [id number] ANSI-Commercial [id number] [facility] [id number] S [id number] [facility] Plan Commercial [id number] Self [id number] [facility] Plan Commercial [id number] Self [id number] [facility] [place]ITY PLAN [id number] SP [id number] [facility] I [id number] Self [id number] [facility] Comm Plan Medicaid F [id number] SELF [id number] Problems, Conditions, and Diagnoses Code Display Name Description Problem Type Effective Dates Data Source(s) F90.2 Attention-deficit hyperactivity disorder , combined type Attention- Deficit/Hyperactivity Disorder, Combined presentation Condition 08/29/2020 12:00:00 AM EST [facility] ([facility]) F43.12 Post-traumatic stress disorder, chronic Post-traumatic stress disorder, chronic Condition 08/29/2020 12:00:00 AM EST [facility] ([facility]) F43.9 Reaction to severe stress, unspecified U nspecified Trauma- and Stressor- Related Disorder Condition 07/25/2020 12:00:00 AM EST [facility] ([facility]) R94.5 Abnormal results of liver function studi es ABNORMAL RESULTS OF LIVER FUNCTION STUDIES Diagnosis 05/11/2020 10:45:00 AM EDT [facility] D68.51 Activated protein C resistance ACTIVATED PROTEIN C RES ISTANCE Diagnosis 05/11/2020 10:45:00 AM EDT [facility] F90.9 Attention-deficit hyperactivity disorder , unspecified type ATTENTION- DEFICIT HYPERACTIVITY DISORDER, UNSPECIFIED TYPE Diagnosis 02/22 02:13:00 PM T [facility] R11.2 Nausea with vomiting, unspecified NAUSEA WITH VO MITING, UNSPECIFIED Diagnosis 02/23/2020 02:13:00 PM [facility] E87.6 Hypokalemia HYPOKALEMIA Diagnosis 02/23/2020 02:13:00 PM [facility] F41.8 Other specified anxiety disorders OTHER SPECIFIE D ANXIETY DISORDERS Diagnosis 02/23/2020 02:13:00 PM T [facility] F31.9 Bipolar disorder, unspecified BIPOLAR DISORDER, UNSPEC IFIED Diagnosis 02/23/2020 02:13:00 PM [facility] N80.9 Endometriosis, unspecified ENDOMETRIOSIS, UNSPECIFIED Diagnosis 02/23/2020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
--- OUTSIDE RECORDS SUMMARY | 2020-08-29 22:22 | CCD ---
Author Author Aditi Garrido Organization Unknown Address [address] [address] Phone Care Team Providers Care Galvanizer Zinc Name Role Phone Hema Winnie PCP Allergies, Adverse Reactions, Alerts No Data in Section Problem List Concept Problem Description Status Start Date Created Date Resolv ed Date Snomed Code F43.12 Post-traumatic stress disorder, chronic Active 08/01/2020 F90.2 Attention-Deficit/Hyperactivity Disorder, Combined pre sentation Active 08/01/2020 Medications No Data in Section Social History Social History Element Description Concept Effective Date Smoking Status Unknown if ever smoked [id number] Immunizations No Data in Section Vital Signs No Data in Section Procedures Date Concept Id Description Targeted Site Concept Targeted Site Concept Type 08/01/2020 86622 Psychiatric Diagnostic Evaluation (Non-Medical) CPT Patient has no history of implantable de vices Encounters Encounter Start Date End Date Encounter Type Description Diagnosis Di agnosis Desc Location Author First Name Author Last Name Npid Taxonomy Cod e Taxonomy Desc Phone Number Location Addr1 Location Addr2 Location [facility] Location [facility] Location [facility] [id number] 08/01/2020 08/01/2020 [id number] Psychiatric Marlen gnostic Evaluation (Non-Medical) F43.12 Post-traumatic stress disorder, chronic [facility] Hema Zhou [id number] Student in an Organized Health Care Education/Training Program [id number] [address] [address] Plan of Treatment No Data in Section Lab Results No Data in Section Instructions No Data in Section Insurance Providers Insurance Id Policy Effective Date Policy Thru Date Company N kyler [id number] [facility] [id number] MEDICAID
[2020-08-29] MEDS ORDERED: NAPROXEN 250 MG TAB PO ONE (23:00)
[2020-08-29] MEDS ORDERED: LIDOCAINE 4% CREAM 5GM (LMX4) TOP ONE (23:00)
--- NOTE | 2020-08-29 23:17 | REPVR ---
PROCEDURE INFORMATION: Exam: XR Right Foot Exam date and time: 08/29/2020 11:00 PM Age: 35 years old Clinical indication: Pain; Foot; Right; Additional info: Hit top foot on ice, pain since TECHNIQUE: Imaging protocol: XR Right foot. Views: 3 or more views. COMPARISON: No relevant prior studies available. FINDINGS: Bones/joints: Normal. Soft tissues: Normal. IMPRESSION: Negative right foot. Electronically signed by: Valentino Cross On 08/29/2020 23:17:37 PM
--- OUTSIDE RECORDS SUMMARY | 2020-08-29 23:20 | CCD ---
Author Author [facility] Organization [facility] Address Unknown Phone Unavailable Care Team Providers Care Manager Costing Name Role Phone PIIT, CARMELI FLOS Unavailable [...] Wayne Henning D.O. Unavailable Unavailable Delmy Garcia BOX CUTTER Unavailable Unavailable KENROY PHELPS MD Unavailable Unavailable HERO GARCIA Unavailable Unavailable HERO GARCIA Unavailable Unavailable HERO GARCIA ESTELA Unavailable Unavailable Kocan, J Mago SHUTTLE CAR OPERATOR Unavailable Unavailable Kocan, J Mago SHUTTLE CAR OPERATOR Unavailable Unavailable Kocan, J Mago SHUTTLE CAR OPERATOR Unavailable Unavailable Kocan, J Mago SHUTTLE CAR OPERATOR Unavailable Unavailable Kocan, J Mago SHUTTLE CAR OPERATOR Unavailable Unavailable Kocan, J Mago SHUTTLE CAR OPERATOR Unavailable Unavailable Kocan, J Mago SHUTTLE CAR OPERATOR Unavailable Unavailable Kocan, J Mago SHUTTLE CAR OPERATOR Unavailable Unavailable Kocan, J Mago SHUTTLE CAR OPERATOR Unavailable Unavailable Kocan, J Mago SHUTTLE CAR OPERATOR Unavailable Unavailable Kocan, J Mago SHUTTLE CAR OPERATOR Unavailable Unavailable Kocan, J Mago SHUTTLE CAR OPERATOR Unavailable Unavailable Kocan, J Mago SHUTTLE CAR OPERATOR Unavailable Unavailable Emily Phelps M.D. Unavailable Unavailable Cas Orellana MD Unavailable Unavailable Papo, M Nancy PHARMACEUTICAL LABORATORY TECHNICIAN Unavailable Papo, M Nancy PHARMACEUTICAL LABORATORY TECHNICIAN Unavailable Papo, M Nancy PHARMACEUTICAL LABORATORY TECHNICIAN Unavailable Papo, M Nancy PHARMACEUTICAL LABORATORY TECHNICIAN Unavailable Papo, M Nancy PHARMACEUTICAL LABORATORY TECHNICIAN Unavailable Barros, M Nancy PHARMACEUTICAL LABORATORY TECHNICIAN Unavailable Barros, M Nancy PHARMACEUTICAL LABORATORY TECHNICIAN Unavailable Papo, M Nancy PHARMACEUTICAL LABORATORY TECHNICIAN Unavailable Esteban, [id number] MD Cas PATIÑO Unavailable [phone] Esteban, [id number] MD Cas PATIÑO Unavailable [phone] Esteban, [id number] MD Cas PATIÑO Unavailable [phone] Esteban, [id number] MD Cas PATIÑO Unavailable [phone] Esteban, [id number] MD Cas MD Unavailable Esteban, [id number] MD Cas MD Unavailable Esteban, [id number] MD Cas MD Unavailable Esteban, [id number] MD Cas MD Unavailable Esteban, [id number] MD Cas MD Unavailable Esteban, [id number] MD Cas MD Unavailable Esteban, [id number] MD Cas MD Unavailable Esteban, [id number] MD Cas MD Unavailable Esteban, [id number] MD Cas MD Unavailable Esteban, [id number] MD Cas MD Unavailable Esteban, [id number] MD Cas MD Unavailable Esteban, [id number] MD Cas MD Unavailable Esteban, [id number] MD Cas MD Unavailable Esteban, [id number] MD Cas MD Unavailable Esteban, [id number] MD Cas MD Unavailable Esteban, [id number] MD Cas MD Unavailable Esteban, [id number] MD Cas MD Unavailable Esteban, [id number] MD Cas MD Unavailable Esteban, [id number] MD Cas MD Unavailable Esteban, [id number] MD Cas MD Unavailable Esteban, [id number] MD Cas MD Unavailable Esteban, [id number] MD Cas MD Unavailable Esteban, [id number] MD Cas MD Unavailable [phone] Esteban, [id number] MD Cas PATIÑO Unavailable [phone] Esteban, [id number] MD Cas PATIÑO Unavailable [phone] Esteban, [id number] MD Cas PATIÑO Unavailable [phone] Esteban, [id number] MD Cas PATIÑO Unavailable [phone] NOSTROM, AMY BOX CUTTER Unavailable Unavailable NOSTROM, AMY BOX CUTTER Unavailable Unavailable NOSTROM, AMY BOX CUTTER Unavailable Unavailable NOSTROM, AMY BOX CUTTER Unavailable Unavailable NOSTROM, AMY BOX CUTTER Unavailable Unavailable NOSTROM, AMY BOX CUTTER Unavailable Unavailable NOSTROM, AMY BOX CUTTER Unavailable Unavailable NOSTROM, AMY BOX CUTTER Unavailable Unavailable NOSTROM, AMY BOX CUTTER Unavailable Unavailable NOSTROM, AMY BOX CUTTER Unavailable Unavailable NOSTROM, AMY BOX CUTTER Unavailable Unavailable NOSTROM, AMY BOX CUTTER Unavailable Unavailable NOSTROM, AMY BOX CUTTER Unavailable Unavailable Wayne Huerta D.O. Unavailable Unavailable Curry, Mercy Unavailable Unavailable Curry, Mercy Unavailable Unavailable Curry, Mercy Unavailable Unavailable ConteJuan parry MD Unavailable [phone] Conte, Juan PATIÑO Unavailable [phone] Conte, Juan PATIÑO Unavailable [phone] Conte, Juan PATIÑO Unavailable [phone] ConteJuan MD Unavailable [phone] ConteJuan MD Unavailable [phone] Conte, Juan PATIÑO Unavailable [phone] ConteJuan MD Unavailable [phone] Conte, Juan PATIÑO Unavailable [phone] Mya James MD Unavailable Unavailable Nostrom, R Amy SHUTTLE CAR OPERATOR Unavailable Unavailable Winnie Garrido Unavailable Emily [...] Unavailable James Garcia MD Unavailable Unavailable James Garcai MD Unavailable Unavailable James Garcia MD Unavailable Unavailable James Garcia MD Unavailable Unavailable James Garcia MD Unavailable Unavailable James Garcia MD Unavailable Unavailable James Garcia MD Unavailable Unavailable James Garcia MD Unavailable Unavailable DIANN MONZON MD Unavailable Unavailable DIANN MONZON MD Unavailable Unavailable DIANN MONZON MD Unavailable Unavailable DIANN MONZON MD Unavailable Unavailable DIANN MONZON MD Unavailable Unavailable DIANN OMNZON MD Unavailable Unavailable DIANN MONZON MD Unavailable [...] is protected by Article 27-F of the [facility] Public Health law. If you continue you may have access to information: Regarding HIV / AIDS; Provided by facilities licensed or operated by the [facility] Office of Mental Health; or Provided by the [facility] Office for People With Developmental Disabilities. If such information is present, then the following [facility] mandated warning applies: This information has been [...] law may result in a fine or fpc sentence or both. A general authorization for the release of medical or other information is NOT sufficient authorization for further disc losure. Allergies and Adverse Reactions Type Description Substance Reaction Status Data Source(s ) Drug allergy permethrin Permethrin Active [facility] ([facility] Drug allergy Drug allergy [facility] Family History Family Member Name Family Member Gender Family Member Status Date o f Status Description Data Source(s) Unknown Female Diagnosis 04/04/2014 12:00:00 AM EDT [facility] ([facility]) Unknown Female Diagnosis 04/04/2014 12:00:00 AM EDT [facility] ([facility]) Unknown Unknown Problem MEDENT (Dr Larry Jett) siblings and children Encounters Encounter Providers Location Date Indications Data Source(s ) Extended Individual Psychotherapy - 45 min Attender: Shaye fermin [facility] 08/29/2020 03:00:00 AM EST - 08/29/2020 03:00:00 AM EST [facility] ([facility]) Attender: Winnie Garrido 08/29/2020 12:00:00 AM EST [facility] ([facility]) Attender: Maritza Marcus 0 08/24/2020 04:54:00 PM EST - 08/24/2020 04:54:00 PM EST [facility] ([facility]) Extended Individual Psychotherapy - 45 min Attender: Shaye Garrido [facility] 08/15/2020 03:00:00 AM EST - 08/15/2020 03:00:00 AM EST [facility] ([facility]) Attender: Winnie Garrido 08/15/2020 12:00:00 AM EST [facility] ([facility]) Attender: Mercy Marcus 08/11 01:00:00 PM EST - 08/11/2020 01:00:00 PM EST Migraine w/o aura, not intractable, w/o status migrainosusMajor depressive disorder, single episode, unspecifiedAnxiety disorder, unspecifiedPersonal history of other venous thrombosis and embolismAc tivated protein C resistanceEndometriosis, unspecifiedUnspecified asthma, uncomplicatedAttention-deficit hyperactivity disorder, unspecified typeRaynaud's syndrome without gangreneEncounter for other general examination [facility] ([facility]) Migraine w/o aura, not intractable, w/o status migrainosus Major depressive disorder, single episod e, unspecified Anxiety disorder, unspecified Personal history of other venous thrombo sis and embolism Activated protein C resistance Endometriosis, unspecified Unspecified asthma, uncomplicated Attention-deficit hyperactivity disorder , unspecified type Raynaud's syndrome without gangrene Encounter for other general examination Psychiatric Diagnostic Evaluation (Non-Medical) Attender: Yvonne Garrido [facility] 08/01/2020 03:00:00 AM EST - 08/01/2020 03:00:00 AM EST [facility] ([facility]) Attender: Winnie Garrido 08/01/2020 12:00:00 AM EST [facility] ([facility]) Brief Individual Psychotherapy - 30 min Attender: Marielena bell [facility] K[facility] 07/25/2020 02:00:00 AM EST - 07/25/2020 02:00:00 AM EST [facility] ([facility]) Attender: Marielena Arechiga 07/25/2020 12:00:00 AM EST [facility] ([facility]) Preadmit Attender: Juan Conte MD CPSCAORT-ONCPDMED 12:00:00 AM EST [facility]U [facility] FU DVT DISCUSS DENTAL WORK Emergency Attender: Himanshu Tejada MD SURG-ER 05/14 01:36:00 AM EST - 05/24/2020 06:11:00 AM EST [facility] Patient discharged. Emergency SURG-ER 05/16/2020 08:40:00 PM EST [facility]. Patient discharged. Outpatient Attender: Juan Conte MDConsultant: Farzad Phelps M.D. SURG-ULTRA 05/11/2020 10:45:[address] [facility]. Emergency Attender: Vasu Devlin M.D.Referrer: DIANN BARAHONA MD SURG-ER 05/10/2020 09:11:00 PM EDT - 05/11/2020 01:47:00 AM EDT [facility]. Patient discharged. Outpatient Att[facility] 05/04/2020 01:20:00 PM EDT - 05/04/2020 01:21:00 PM [facility] Patient [facility] Outpatient Attender: Juan Conte MD CPSCAORT-ONCPDMED 08:27:00 AM EDT - 05/01/2020 08:28:00 AM EDT 2YR FU FACTOR v LEIDEN MUTATION [facility] 2YR FU FACTOR v LEIDEN MUTATION Patient discharged. Emergency Attender: Karel Vásquez M.D. SURG-ER 04/15 07:25:00 PM EDT - 04/16/2020 01:18:00 AM EDT [facility]. Patient discharged. Emergency Attender: Karel Vásquez M.D. SURG-ER 04/08 09:13:00 PM EDT - 04/09/2020 02:13:00 AM EDT [facility]. Patient discharged. Preadmit Attender: KENROY PHELPS MD 03/06/2020 10:56:00 AM EDT [facility] Inpatient Attender: Sherrie James MD Attender: Sherrie James MDAdmitter: Sherrie James MDConsultant: ESTELA GARCIAConsultant: Estela Garcia NPConsultant: Amy Grewal RNPConsultant: AMY GREWAL BOX CUTTER CPSCAORT-OBSERV 02/23/2020 02:13:00 PM EDT - 02/26/2020 04:40:00 PM EDT INTRACTABLE VOMITING; ENTEROCOLITIS [facility] INTRACTABLE VOMITING; ENTEROCOLITIS Patient discharged. Emergency Attender: Talib Huerta D.O. SURG-ER 09:40:00 PM EDT - 02/22/2020 06:54:00 AM EDT [facility]. Patient discharged. Emergency Attender: Estela Henning D.O. SURG-ER 12:35:00 AM EDT - 01/22/2020 04:46:00 AM EDT [facility]. Patient discharged. Outpatient Attender: PROSPER MALONEY-IMAPD 01/11/2020 1 1:18:00 AM EDT - 01/11/2020 11:19:00 AM EDT R06.02 [facility] R06.02 Patient discharged. Emergency SURG-ER 01/03/2020 04:49:00 PM EDT [facility]. Patient discharged. Outpatient Attender: Hao Garcia MD CPSCAORT-CPSCADER 0 04:15:00 PM EDT - 11/23/2019 04:16:00 PM [facility] Patient discharged. Outpatient Attender: PROSPER MEJIAORT-CPSNFFPP 11/17/2019 01:43:00 PM EDT - 11/17/2019 01:44:00 PM ED[facility] Patient discharged. Preadmit Attender: Mago MAGALLON CPSCAORT-PRSLAPT 10/19/2019 12:00:00 AM EDT RIGHT SHOULDER PAIN [facility] RIGHT SHOULDER PAIN Preadmit Attender: PROSPER THOMAS CPSCAORT-IMAPD 10/05/2019 11:00:00 AM EDT SOB [facility] SOB Outpatient Attender: Cas Orellana MDAttender: [id number] Cas Orellana MD CPSCAORT-CPSCARHE 09/21/2019 09:53:00 AM EDT - 09/21/2019 09:54:00 AM ED T I73.00 [facility] I73.00 Patient discharged. Outpatient Attender: PROSPER MONTANOCAORT-CPSNFFPP 09/14/2019 10:24:00 AM EST - 09/14/2019 10:25:00 AM [facility] Patient discharged. Outpatient Attender: Mago MAGALLON CPSCAORT-CPSOMPMC 12/2019 07:55:00 AM EST - 08/19/2019 07:56:00 AM EST [facility] Patient discharged. Outpatient Attender: Nancy WILLIAMP CPSCAORT-CPSCAORT 1 09:10:00 AM EST - 07/13/2019 09:11:00 AM EST [facility] Patient discharged. Emergency ER-ER 07/08/2019 11:40:00 PM [facility]. Patient discharged. [address] [place] [address] 07/05/2019 12:00:00 AM EST [email or web address] ([facility]) Emergency Attender: Jonathan Shah M.D. ER-ER 03:32:00 PM EST - 06/30/2019 04:42:00 PM [facility]. Patient discharged. Medications Medication Brand Name Start [...] Every 6 Hrs 05 00,1100,1700,23 as needed [facility] Acetaminophen 325 MG / Oxycodone Hydroch loride 5 MG Oral Tablet [Percocet] Oxycodone HCl/Acetaminophen (Percocet 5-325 MG Tablet) 1 EACH TABLET Oxycodone HCl/Acetaminophen (Percocet 5-325 MG Tablet) 1 EACH TABLET 05/11/2020 12:00:00 AM EDT 1 completed Every 6 Hrs 05 00,1100,1700,23 as needed [facility] Acetaminophen 325 MG / Oxycodone Hydroch loride 5 MG Oral Tablet [Percocet] Oxycodone HCl/Acetaminophen (Percocet 5-325 MG Tablet) 1 EACH TABLET Oxycodone HCl/Acetaminophen (Percocet 5-325 MG Tablet) 1 EACH TABLET 05/11/2020 12:00:00 AM EDT 1 completed Every 6 Hrs 05 00,1100,1700,23 as needed [facility] Wellbutrin 75 mg tablet bupropion HCl completed take 1 tablet by oral route 3 times every day [facility] ([facility]) Danazol 50 MG Oral Capsule danazol 50 mg capsule danazol 50 mg caps ule 1.00 {capsule} ORAL completed take 1 capsule by or al route 2 times every day [facility] ([facility]) buspirone hydrochloride 5 MG Oral Tablet buspirone 5 m g tablet buspirone 5 mg tablet 1 {tablet} ORAL completed miguelina e 1 tablet by oral route 2 times every day [facility] ([facility]) topiramate 50 MG Oral Tablet [Topamax] Topamax 50 mg t ablet Topamax 50 mg tablet 1 {tablet} ORAL completed topiramate 50 MG Oral Tablet [Topamax] [facility] ([facility]) 24 HR Amphetamine aspartate 6.25 MG / [...] Capsule [Adderall] [facility] ([facility]) Insurance Providers Payer name Policy type / Coverage type Policy ID Covered green party ID Covered green party's relationship to earl Policy Earl Plan Information [employer] COMMUNITY PLAN [id number] SP [id number] [facility] NYCDFHP self NYCDFHP [facility] COMMUNITY [id number] Unemploye d [id number] [facility](MCAID) O [id number] S [id number] [facility] COMMUNITY PLAN [id number] SP [id number] [facility] [id number] S [id number] ANSI-Commercial [id number] ANSI-Commercial [id number] [facility] COMMUNITY PLAN [id number] SP [id number] ANSI-Commercial [id number] MEDICAID [id number] SP [id number] ANSI-Commercial [id number] ANSI-Commercial [id number] [facility] [id number] S [id number] [facility] Plan Commercial [id number] Self [id number] [facility] Plan Commercial [id number] Self [id number] [facility] [place] [id number] SP [id number] [facility] I [id number] Self [id number] [facility] Comm [facility] Medicaid F [id number] SELF [id number] Problems, Conditions, and Diagnoses Code Display Name Description Problem Type Effective Dates Data Source(s) F90.2 Attention-deficit hyperactivity disorder , combined type Attention- Deficit/Hyperactivity Disorder, Combined presentation Condition 08/29/2020 12:00:00 AM EST [facility] ([facility]) F43.12 Post-traumatic stress disorder, chronic Post-traumatic stress disorder, chronic Condition 08/29/2020 12:00:00 AM EST [facility] ([facility]) F43.9 Reaction to severe stress, unspecified U nspecified Trauma- and Stressor- Related Disorder Condition 07/25/2020 12:00:00 AM EST [facility] ([facility]) R94.5 Abnormal results of liver function studi es ABNORMAL RESULTS OF LIVER FUNCTION STUDIES Diagnosis 05/11/2020 10:45:00 AM EDT [facility] D68.51 Activated protein C resistance ACTIVATED PROTEIN C RES ISTANCE Diagnosis 05/11/2020 10:45:[address] [facility] F90.9 Attention-deficit hyperactivity disorder , unspecified type ATTENTION- DEFICIT HYPERACTIVITY DISORDER, UNSPECIFIED TYPE Diagnosis 02/22 02:13:00 PM [facility] R11.2 Nausea with vomiting, unspecified NAUSEA WITH VO MITING, UNSPECIFIED Diagnosis 02/23/2020 02:13:00 PM [facility] E87.6 Hypokalemia HYPOKALEMIA Diagnosis 02/23/2020 02:13:00 PM [facility] F41.8 Other specified anxiety disorders OTHER SPECIFIE D ANXIETY DISORDERS Diagnosis 02/23/2020 02:13:00 PM [facility] F31.9 Bipolar disorder, unspecified BIPOLAR DISORDER, UNSPEC IFIED Diagnosis 02/23/2020 02:13:00 PM [facility] N80.9 Endometriosis, unspecified ENDOMETRIOSIS, UNSPECIFIED Diagnosis 02/23/2020 02:13:00 PM [facility] I73.00 Raynaud's syndrome without gangrene RAYNAUD'S SY NDROME WITHOUT GANGRENE Diagnosis 02/23/2020 02:13:00 PM [facility] J45.909 Unspecified asthma, uncomplicated UNSPECIFIED THMA, UNCOMPLICATED Diagnosis 02/23/2020 02:13:00 PM [facility] A07.2 Cryptosporidiosis CRYPTOSPORIDIOSIS Diagnosis 02/23/2020 02:13:00 PM [facility] D68.51 Activated protein C resistance ACTIVATED PROTEIN C RES ISTANCE Diagnosis 02/23/2020 02:13:00 PM [facility] 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 OTHER SHIGELLOSIS Diagnosis 02/23/2020 02:13:00 PM [facility] R94.31 Abnormal electrocardiogram [ECG] [EKG] A BNORMAL ELECTROCARDIOGRAM [ECG] [EKG] Diagnosis 01/11/2020 11:18:00 AM [facility] R06.02 Shortness of breath SHORTNESS OF BREATH Diagnosis 0 01/11/2020 11:18:00 AM [facility] Surgeries/Procedures Procedure Description Date Indications Data Source(s) Extended Individual Psychotherapy - 45 min 08/29/2020 12:00:00 AM EST - 08/29/2020 12:00:00 AM EST [facility] ([facility]) Extended Individual Psychotherapy - 45 min 12:00:00 AM EST [facility] ([facility]) Extended Individual Psychotherapy - 45 min 08/15/2020 12:00:00 AM EST - 08/15/2020 12:00:00 AM EST [facility] ([facility]) Extended Individual Psychotherapy - 45 min 12:00:00 AM EST [facility] ([facility]) CVR Nursing Assistant.Svc. Other 08/11/2020 12:00:00 AM EST - 2020 12:00:00 AM EST [facility] ([facility]) Est Pt PC Exp Prob Focused 08/11/2020 12 :00:00 AM EST - 08/11/2020 12:00:00 AM EST [facility] Psychiatric Diagnostic Evaluation (Non-Medical) 08/01/2020 12:00:00 AM EST - 08/01/2020 12:00:00 AM EST [facility] ([facility]) Psychiatric Diagnostic Evaluation (Non-Medical) 2020 12:00:00 AM EST [facility] ([facility]) Brief Individual Psychotherapy - 30 min 07/25/2020 12:00:00 AM EST - 07/25/2020 12:00:00 AM EST [facility] ([facility]) Brief Individual Psychotherapy - 30 min 07/25/2020 12: 00:00 AM EST [facility] ([facility]) EMERGENCY DEPARTMENT VISIT HIGH/URGENT SEVERITY EMERGENCY DE PT VISIT 04/15/2020 12:00:00 AM EDT [facility]. EMERGENCY DEPARTMENT VISIT HIGH/URGENT SEVERITY EMERGENCY DE PT VISIT 04/15/2020 12:00:00 AM T [facility]. EMERGENCY DEPARTMENT VISIT HIGH/URGENT SEVERITY EMERGENCY DE PT VISIT 04/15/2020 12:00:00 AM EDT [facility]. EMERGENCY DEPARTMENT VISIT HIGH/URGENT SEVERITY EMERGENCY DE PT VISIT [facility] HIGH/URGENT SEVERITY EMERGENCY DE PT VISIT 04/15/2020 12:00:00 AM T [facility]. EMERGENCY DEPARTMENT VISIT HIGH/URGENT SEVERITY EMERGENCY DE PT VISIT 04/15/2020 12:00:00 AM [facility]. EMERGENCY DEPARTMENT VISIT HIGH/URGENT SEVERITY EMERGENCY DE PT VISIT 04/08/2020 12:00:00 AM [facility]. EMERGENCY DEPARTMENT VISIT HIGH/URGENT SEVERITY EMERGENCY DE PT VISIT 04/08/2020 [facility] HIGH/URGENT SEVERITY EMERGENCY DE PT VISIT 04/08/2020 12:00:00 AM [facility]. EMERGENCY DEPARTMENT VISIT HIGH/URGENT SEVERITY EMERGENCY DE PT VISIT 04/08/2020 12:00:00 AM [facility]. EMERGENCY DEPARTMENT VISIT HIGH/URGENT SEVERITY EMERGENCY DE PT VISIT 04/08/2020 12:00:00 AM EDT [facility]. EMERGENCY DEPARTMENT VISIT HIGH/URGENT SEVERITY EMERGENCY DE PT VISIT 04/08/2020 12:00:00 AM T [facility]. EMERGENCY DEPARTMENT VISIT HIGH/URGENT SEVERITY EMERGENCY DE PT VISIT 04/08/2020 [facility] V[facility] HIGH/URGENT SEVERITY EMERGENCY DE PT VISIT 04/08/2020 12:00:00 AM EDT [facility] [id number] 02/22/2020 12:00:00 AM EDT [facility] Injection, acetaminophen, 10 mg 02/22/2020 12:00:00 AM [facility] Non-covered item or service [facility]22[facility] HIGH SEVERITY&THREAT FUNCJ EMERGENCY DE PT VISIT 02/21/2020 12:00:00 AM EDT [facility] EMERGENCY DEPT VISIT HIGH SEVERITY&THREAT FUNCJ EMERGENCY DE PT VISIT 02/21/2020 12:00:00 AM EDT [facility] EMERGENCY DEPT VISIT HIGH SEVERITY&THREAT FUNCJ EMERGENCY DE PT VISIT 02/21/2020 12:00:00 AM [facility] EMERGENCY DEPT VISIT HIGH SEVERITY&THREAT FUNCJ EMERGENCY DE PT VISIT 02/21[facility] SEVERITY&THREAT FUNCJ EMERGENCY DE PT VISIT 02/21[facility]2020 [facility] HIGH SEVERITY&THREAT FUNCJ EMERGENCY DE PT VISIT 02/21/2020 [facility] HIGH SEVERITY&THREAT FUNCJ EMERGENCY DE PT VISIT 02/21/2020 12:00:00 AM [facility] EMERGENCY DEPT VISIT HIGH SEVERITY&THREAT FUNCJ EMERGENCY DE PT VISIT 02/21/2020 [facility] HIGH SEVERITY&THREAT FUNCJ EMERGENCY DE PT VISIT 02/21/2020 [facility] HIGH SEVERITY&THREAT FUNCJ EMERGENCY DE PT VISIT 02/21/2020 12:00:00 AM EDT [facility] EMERGENCY DEPARTMENT VISIT MODERATE SEVERITY EMERGENCY DEPT VISIT 01/22/2020 12:00:00 AM [facility] EMERGENCY DEPARTMENT VISIT HIGH/URGENT SEVERITY EMERGENCY DE PT VISIT 01/22/2020 [facility] MODERATE SEVERITY EMERGENCY DEPT VISIT 01/22/2020 [facility] HIGH/URGENT SEVERITY EMERGENCY DE PT VISIT 01/22/2020 12:00:00 AM [facility]. EMERGENCY DEPARTMENT VISIT MODERATE SEVERITY EMERGENCY DEPT VISIT 01/22/2020 12:00:00 AM EDT [facility]. EMERGENCY DEPARTMENT VISIT HIGH/URGENT SEVERITY EMERGENCY DE PT VISIT 01/22/2020 12:00:00 AM [facility]. EMERGENCY DEPARTMENT VISIT MODERATE SEVERITY EMERGENCY DEPT VISIT 01/22/2020 12:00:00 AM [facility]. EMERGENCY DEPARTMENT VISIT HIGH/URGENT SEVERITY EMERGENCY DE PT VISIT 01/22/2020 12:00:00 AM T [facility]. EMERGENCY DEPARTMENT VISIT MODERATE SEVERITY EMERGENCY DEPT VISIT 01/22/2020 12:00:00 AM [facility]. EMERGENCY DEPARTMENT VISIT HIGH/URGENT SEVERITY EMERGENCY DE PT VISIT 01/22/2020 12:00:00 AM [facility]. EMERGENCY DEPARTMENT VISIT MODERATE SEVERITY EMERGENCY DEPT VISIT 01/22/2020 12:00:00 AM [facility]. EMERGENCY DEPARTMENT VISIT HIGH/URGENT SEVERITY EMERGENCY DE PT VISIT 01/22/2020 12:00:00 AM [facility]. EMERGENCY DEPARTMENT VISIT MODERATE SEVERITY EMERGENCY DEPT VISIT 01/03/2020 12:00:00 AM [facility]. EMERGENCY DEPARTMENT VISIT MODERATE SEVERITY EMERGENCY DEPT VISIT 01/03/2020 12:00:00 AM [facility]. EMERGENCY DEPARTMENT VISIT MODERATE SEVERITY EMERGENCY DEPT VISIT 01/03/2020 12:00:00 AM [facility]. EMERGENCY DEPARTMENT VISIT MODERATE SEVERITY EMERGENCY DEPT VISIT 01/03/2020 12:00:00 AM [facility]. EMERGENCY DEPARTMENT VISIT MODERATE SEVERITY EMERGENCY DEPT VISIT 01/03/2020 12:00:00 AM [facility]. EMERGENCY DEPARTMENT VISIT MODERATE SEVERITY EMERGENCY DEPT VISIT 01/03/2020 12:00:00 AM [facility]. EMERGENCY DEPARTMENT VISIT MODERATE SEVERITY EMERGENCY DEPT VISIT 01/03/2020 12:00:00 AM [facility]. EMERGENCY DEPARTMENT VISIT MODERATE SEVERITY EMERGENCY DEPT VISIT 01/03/2020 12:00:00 AM [facility]. EMERGENCY DEPARTMENT VISIT MODERATE SEVERITY EMERGENCY DEPT VISIT 01/03/2020 12:00:00 AM [facility]. EMERGENCY DEPARTMENT VISIT MODERATE SEVERITY EMERGENCY DEPT VISIT 01/03/2020 12:00:00 AM [facility] EMERGENCY DEPARTMENT VISIT MODERATE SEVERITY EMERGENCY DEPT VISIT 01/03/2020 12:00:00 AM [facility] EMERGENCY DEPARTMENT VISIT MODERATE SEVERITY EMERGENCY DEPT VISIT 01/03/2020 12:00:00 AM [facility] EMERGENCY DEPARTMENT VISIT MODERATE SEVERITY EMERGENCY DEPT VISIT 01/03/2020 12:00:00 AM [facility] EMERGENCY DEPARTMENT VISIT MODERATE SEVERITY EMERGENCY DEPT VISIT 01/03/2020 12:00:00 AM [facility]. EMERGENCY DEPARTMENT VISIT MODERATE SEVERITY EMERGENCY DEPT VISIT 07/08/2019 12:00:00 AM [facility]. EMERGENCY DEPARTMENT VISIT MODERATE SEVERITY EMERGENCY DEPT VISIT 07/08/2019 12:00:00 AM [facility]. INCISION & DRAINAGE ABSCESS SIMPLE/SINGLE DRAINAGE OF SKIN A BSCESS 07/08/2019 12:00:00 AM [facility] INCISION & DRAINAGE ABSCESS SIMPLE/SINGLE DRAINAGE OF SKIN A BSCESS 07/08/2019 12:00:00 AM [facility] Results ID Date Data Source [id number] 05/24/2020 02:25:00 AM [facility] PATIENT HISTORY: EXAM REASON:INJURY PAT IENT [...] 24, 2020 2:25:37 AM EST by:Pradeep Sandhu, [place] Board of RadiologyNOTE: For CT examinations, dose [...] rce(s) Supporting Document(s) ID Date Data Source [id number] 05/16/2020 09:36:00 PM EST [employer] CT RIGHT FOREARM WITHOUT CONTRASTNo frac [...] rce(s) Supporting Document(s) ID Date Data Source [id number] 05/14/2020 11:17:00 AM EST [employer] RIGHT FOREARM SERIESThere is normal alig [...] rce(s) Supporting Document(s) ID Date Data Source [id number] 05/14/2020 11:17:00 AM EST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 Centimeters) 154.94 154. 94 [facility] Body Mass Index (BMI) 36.9 36.9 [facility] ID Date Data Source [id number] 11/18/2019 12:18:00 AM EDT [facility] Name Value Range Interpretation Code Description Data Source(s) Weight (Calculated Kilograms) 88.72 88.72 [facility] Height (Calculated Centimeters) 154.94 154. 94 [facility] Body Mass Index (BMI) 36.9 36.9 [facility] ID Date Data Source [id number] 10/12/2019 11:43:00 AM EDT [facility] Name Value Range Interpretation Code Description Data Source(s) Weight (Calculated Kilograms) 88.72 88.72 [facility] Height (Calculated Centimeters) 154.94 154. 94 [facility] Body Mass Index (BMI) 36.9 36.9 [facility] ID Date Data Source [id number] 01/31/2020 12:13:00 AM EDT [facility] Name Value Range Interpretation Code Description Data Source(s) Weight (Calculated Kilograms) 88.72 88.72 [facility] Height (Calculated Centimeters) 154.94 154. 94 [facility] Body Mass Index (BMI) 36.9 36.9 [facility] ID Date Data Source [id number] 09/22/2019 12:18:00 AM T [facility] Name Value Range Interpretation Code Description Data Source(s) Weight (Calculated Kilograms) 88.72 88.72 [facility] Height (Calculated Centimeters) 154.94 154. 94 [facility] Body Mass Index (BMI) 36.9 36.9 [facility] ID Date Data Source [id number] 09/15/2019 12:28:00 AM [facility] Name Value Range Interpretation Code Description Data Source(s) Weight (Calculated Kilograms) 88.72 88.72 [facility] Height (Calculated Centimeters) 154.94 154. 94 [facility] Body Mass Index (BMI) 36.9 36.9 [facility] ID Date Data Source [id number] 08/20/2019 12:03:00 AM [facility] Name Value Range Interpretation Code Description Data Source(s) Weight (Calculated Kilograms) 88.72 88.72 [facility] Height (Calculated Centimeters) 154.94 154. 94 [facility] Body Mass Index (BMI) 36.9 36.9 [facility] ID Date Data Source [id number] 07/15/2019 08:02:00 AM [facility] Name Value Range Interpretation Code Description Data Source(s) Weight (Calculated Kilograms) 88.72 88.72 [facility] Height (Calculated Centimeters) 154.94 154. 94 [facility] Body Mass Index (BMI) 36.9 36.9 [facility] Patient Treatment Plan of Care Planned Activity Planned Date Details Description Data Source (s) Acetaminophen 325 MG / Oxycodone Hydrochloride 5 MG Or al Tablet [Percocet] 05/11/2020 12:00:00 AM EDT [facility] Acetaminophen 325 MG / Oxycodone Hydrochloride 5 MG Or al Tablet [Percocet] 05/11/2020 12:00:[facility] Acetaminophen 325 MG / Oxycodone Hydrochloride 5 MG Or al Tablet [Percocet] 05/11/2020 12:00:00 AM EDT [facility] Danazol 50 MG Oral Capsule N extGen ([facility]) topiramate 50 MG Oral Tablet [Topamax] NextGen ([facility]) Wellbutrin 75 mg tablet Next Gen ([facility]) 24 HR Amphetamine aspartate 6.25 MG / Am phetamine Sulfate 6.25 MG / Dextroamphetamine saccharate 6.25 MG / Dextroamphetamine Sulfate 6.25 MG Extended Release Oral Capsule [Adderall] Next[facility] ([facility]) buspirone hydrochloride 5 MG Oral Tablet Next[facility] ([facility] [place])
[2020-08-29] MEDS ORDERED: ANEC4CRE3 TOP (23:44)
[2020-08-29 23:58] VITALS: BP 109/69
== END 2020-08-30 00:18 | disposition home or self-care (01) ==
LOC: M ED 22:12
DX: S90.31XA Contusion of right foot, initial encounter (principal); W22.8XXA Striking against or struck by other objects, initial encounter; Y92.410 Unspecified street and highway as the place of occurrence of the external cause; Z79.899 Other long term (current) drug therapy; Z88.1 Allergy status to other antibiotic agents; Z88.2 Allergy status to sulfonamides; Z88.8 Allergy status to other drugs, medicaments and biological substances

== ENCOUNTER 2020-08-31 23:57 | Emergency (ER) | payer OTHER ==
[~2020-08-31] VITALS: Ht 154.9 cm; Wt 69.0 kg
[~2020-08-31 23:57] MED LIST changes: +ANEC4CRE3 TOP
--- OUTSIDE RECORDS SUMMARY | 2020-09-01 | CCD ---
Author Author Aditi Garrido Organization Unknown Address [address] [place] [address] [place] [address] Phone Care Team Providers Care Soap Inspector Name Role Phone Hema Winnie PCP Allergies, Adverse Reactions, Alerts No Data in Section Problem List Concept Problem Description Status Start Date Created Date Resolv ed Date Snomed Code F43.12 Post-traumatic stress disorder, chronic Active 08/29/2020 F90.2 Attention-Deficit/Hyperactivity Disorder, Combined pre sentation Active 08/29/2020 Medications No Data in Section Social History Social History Element Description Concept Effective Date Smoking Status Unknown if ever smoked [id number] Immunizations No Data in Section Vital Signs No Data in Section Procedures Date Concept Id Description Targeted Site Concept Targeted Site Concept Type 08/29/2020 00440 Extended Individual Psychotherapy - 45 min CPT Patient has no history of implantable de vices Encounters Encounter Start Date End Date Encounter Type Description Diagnosis Di agnosis Desc Location Author First Name Author Last Name Npid Taxonomy Cod e Taxonomy Desc Phone Number Location Addr1 Location Addr2 Location [facility] Location [facility] Location [facility] [id number] 08/29/2020 08/29/2020 [id number] Extended Individual Psych otherapy - 45 min F43.12 Post-traumatic stress disorder, chronic [facility] Hema Zhou [id number] Student in an O rganized Health Care Education/Training Program [phone] [address], [place] [address] [facility] [address] Plan of Treatment No Data in Section Lab Results No Data in Section Instructions No Data in Section Insurance Providers Insurance Id Policy Effective Date Policy Thru Date Company N kyler [id number] 2020 [facility] e [id number] 2020 MEDICAID
--- OUTSIDE RECORDS SUMMARY | 2020-09-01 00:01 | CCD ---
Author Author [facility] Organization [facility] Address Unknown Phone Unavailable Care Team Providers Care Event Decorator And Designer Name Role Phone PIIT, CARMELI FLOS Unavailable [...] Wayne Henning D.O. Unavailable Unavailable Delmy Garcia AUTOMOTIVE TEACHER Unavailable Unavailable KENROY PHELPS MD Unavailable Unavailable HERO GARCIA Unavailable Unavailable HERO GARCIA Unavailable Unavailable HERO GARCIA ESTELA Unavailable Unavailable Kocan, J Mago PORTABLE MACHINE SANDER Unavailable Unavailable Kocan, J Mago PORTABLE MACHINE SANDER Unavailable Unavailable Kocan, J Mago PORTABLE MACHINE SANDER Unavailable Unavailable Kocan, J Mago PORTABLE MACHINE SANDER Unavailable Unavailable Kocan, J Mago PORTABLE MACHINE SANDER Unavailable Unavailable Kocan, J Mago PORTABLE MACHINE SANDER Unavailable Unavailable Kocan, J Mago PORTABLE MACHINE SANDER Unavailable Unavailable Kocan, J Mago PORTABLE MACHINE SANDER Unavailable Unavailable Kocan, J Mago PORTABLE MACHINE SANDER Unavailable Unavailable Kocan, J Mago PORTABLE MACHINE SANDER Unavailable Unavailable Kocan, J Mago PORTABLE MACHINE SANDER Unavailable Unavailable Kocan, J Mago PORTABLE MACHINE SANDER Unavailable Unavailable Kocan, J Mago PORTABLE MACHINE SANDER Unavailable Unavailable Emily Phelps M.D. Unavailable Unavailable Cas Orellana MD Unavailable Unavailable Papo, M Nancy ENVIRONMENTAL MONITORING SPECIALIST Unavailable Papo, M Nancy ENVIRONMENTAL MONITORING SPECIALIST Unavailable Papo, M Nancy ENVIRONMENTAL MONITORING SPECIALIST Unavailable Papo, M Nancy ENVIRONMENTAL MONITORING SPECIALIST Unavailable Papo, M Nancy ENVIRONMENTAL MONITORING SPECIALIST Unavailable Barros, M Nancy ENVIRONMENTAL MONITORING SPECIALIST Unavailable Barros, M Nancy ENVIRONMENTAL MONITORING SPECIALIST Unavailable Papo, M Nancy ENVIRONMENTAL MONITORING SPECIALIST Unavailable Esteban, [id number] MD Cas PATIÑO Unavailable [phone] Esteban, [id number] MD Cas PATIÑO Unavailable [phone] Esteban, [id number] MD Cas PATIÑO Unavailable [phone] Esteban, [id number] MD Cas PATIÑO Unavailable [phone] Esteban, [id number] MD Cas MD Unavailable Esteban, [id number] MD Cas MD Unavailable Esteban, [id number] MD Cas MD Unavailable Esteban, [id number] MD Cas MD Unavailable Esteban, [id number] MD Cas MD Unavailable Esteban, [id number] MD Cas MD Unavailable Esteban, [id number] MD Cas MD Unavailable Esteban, [id number] MD Csa MD Unavailable Esteban, [id number] MD Cas MD Unavailable Esteban, [id number] MD Cas MD Unavailable Esteban, [id number] MD Cas MD Unavailable Esteban, [id number] MD Cas MD Unavailable Esteban, [id number] MD Cas MD Unavailable Esteban, [id number] MD Cas MD Unavailable Esteban, [id number] MD Cas MD Unavailable Esteban, [id number] MD Cas MD Unavailable Esteban, [id number] MD Cas MD Unavailable Esteban, [id number] MD Cas MD Unavailable Esteban, [id number] MD Cas MD Unavailable Esteban, [id number] MD Cas MD Unavailable Esteban, [id number] MD Cas MD Unavailable Esteban, [id number] MD Cas MD Unavailable Esteban, [id number] MD Cas MD Unavailable [phone] Esteban, [id number] MD Cas PATIÑO Unavailable [phone] Esteban, [id number] MD Cas PATIÑO Unavailable [phone] Esteban, [id number] MD Cas PATIÑO Unavailable [phone] Esteban, [id number] MD Cas PATIÑO Unavailable [phone] NOSTROM, AMY AUTOMOTIVE TEACHER Unavailable Unavailable NOSTROM, AMY AUTOMOTIVE TEACHER Unavailable Unavailable NOSTROM, AMY AUTOMOTIVE TEACHER Unavailable Unavailable NOSTROM, AMY AUTOMOTIVE TEACHER Unavailable Unavailable NOSTROM, AMY AUTOMOTIVE TEACHER Unavailable Unavailable NOSTROM, AMY AUTOMOTIVE TEACHER Unavailable Unavailable NOSTROM, AMY AUTOMOTIVE TEACHER Unavailable Unavailable NOSTROM, AMY AUTOMOTIVE TEACHER Unavailable Unavailable NOSTROM, AMY AUTOMOTIVE TEACHER Unavailable Unavailable NOSTROM, AMY AUTOMOTIVE TEACHER Unavailable Unavailable NOSTROM, AMY AUTOMOTIVE TEACHER Unavailable Unavailable NOSTROM, AMY AUTOMOTIVE TEACHER Unavailable Unavailable NOSTROM, AMY AUTOMOTIVE TEACHER Unavailable Unavailable Wayne Huerta D.O. Unavailable Unavailable Curry, Mercy Unavailable Unavailable Curry, Mercy Unavailable Unavailable Curry, Mercy Unavailable Unavailable ConteJuan parry MD Unavailable [phone] Conte, Juan PATIÑO Unavailable [phone] Conte, Juan PATIÑO Unavailable [phone] Conte, Juan PATIÑO Unavailable [phone] ConteJuan MD Unavailable [phone] ConteJuan MD Unavailable [phone] Conte, Juan PATIÑO Unavailable [phone] ConteJuan MD Unavailable [phone] Conte, Juan PATIÑO Unavailable [phone] Mya James MD Unavailable Unavailable Nostrom, R Amy PORTABLE MACHINE SANDER Unavailable Unavailable Winnie Garrido Unavailable Emily Shah [...] is protected by Article 27-F of the [facility] Public Health law. If you continue you may have access to information: Regarding HIV / AIDS; Provided by facilities licensed or operated by the [facility] Office of Mental Health; or Provided by the [facility] Office for People With Developmental Disabilities. If such information is present, then the following [facility] mandated warning applies: This information has been [...] law may result in a fine or prison sentence or both. A general authorization for the release of medical or other information is NOT sufficient authorization for further disc losure. Allergies and Adverse Reactions Type Description Substance Reaction Status Data Source(s ) Drug allergy permethrin Permethrin Active [facility] ([facility] Drug allergy Drug allergy Environmental [facility] All[facility] Family History Family Member Name Family Member Gender Family Member Status Date o f Status Description Data Source(s) Unknown Female Diagnosis 04/04/2014 12:00:00 AM EDT [facility] ([facility]) Unknown Female Diagnosis 04/04/2014 12:00:00 AM EDT [facility] ([facility]) Unknown Unknown Problem MEDENT (Dr Larry Jett) siblings and children Encounters Encounter Providers Location Date Indications Data Source(s ) Extended Individual Psychotherapy - 45 min Attender: Shaye fermin [facility] 08/29/2020 03:00:00 AM EST - 08/29/2020 03:00:00 AM EST [facility] ([facility]) Attender: Winnie Garrido 08/29/2020 12:00:00 AM EST [facility] ([facility]) Attender: Maritza Marcus 0 08/24/2020 04:54:00 PM EST - 08/24/2020 04:54:00 PM EST [facility] ([facility]) Extended Individual Psychotherapy - 45 min Attender: Shaye Garrido [facility] 08/15/2020 03:00:00 AM EST - 08/15/2020 03:00:00 AM EST [facility] ([facility]) Attender: Winnie Garrido 08/15/2020 12:00:00 AM EST [facility] ([facility]) Attender: Mercy Marcus 08/11 01:00:00 PM EST - 08/11/2020 01:00:00 PM EST Migraine w/o aura, not intractable, w/o status migrainosusMajor depressive disorder, single episode, unspecifiedAnxiety disorder, unspecifiedPersonal history of other venous thrombosis and embolismAc tivated protein C resistanceEndometriosis, unspecifiedUnspecified asthma, uncomplicatedAttention-deficit hyperactivity disorder, unspecified typeRaynaud's syndrome without gangreneEncounter for other general examination [facility] ([facility]) Migraine w/o aura, not intractable, w/o status migrainosus Major depressive disorder, single episod e, unspecified Anxiety disorder, unspecified Personal history of other venous thrombo sis and embolism Activated protein C resistance Endometriosis, unspecified Unspecified asthma, uncomplicated Attention-deficit hyperactivity disorder , unspecified type Raynaud's syndrome without gangrene Encounter for other general examination Psychiatric Diagnostic Evaluation (Non-Medical) Attender: Yvonne Garrido [facility] 08/01/2020 03:00:00 AM EST - 08/01/2020 03:00:00 AM EST [facility] ([facility]) Attender: Winnie Garrido 08/01/2020 12:00:00 AM EST [facility] ([facility]) Brief Individual Psychotherapy - 30 min Attender: Marielena bell [facility] 07/25/2020 02:00:00 AM EST - 07/25/2020 02:00:00 AM EST [facility] ([facility]) Attender: Marielena Arechiga 07/25/2020 12:00:00 AM EST [facility] ([facility]) Preadmit Attender: Juan Conte MD CPSCAORT-ONCPDMED 12:00:00 AM EST FU DVT DISCUSS DENTAL WORK [facility] FU DVT DISCUSS DENTAL WORK Emergency Attender: Himanshu Tejada MD SURG-ER 05/14 01:36:00 AM EST - 05/24/2020 06:11:[address] [facility] Patient discharged. Emergency SURG-ER 05/16/2020 08:40:00 PM EST [facility]. Patient discharged. Outpatient Attender: Juan Conte MDConsultant: Farzad Phelps M.D. SURG-ULTRA 05/11/2020 10:45:00 AM EDT [facility]. Emergency Attender: Vasu Devlin M.D.Referrer: DIANN BARAHONA MD SURG-ER 05/10/2020 09:11:00 PM EDT - 05/11/2020 01:47:00 AM EDT [facility]. Patient discharged. Outpatient Att[facility] 05/04/2020 01:20:00 PM EDT - 05/04/2020 01:21:00 PM EDT [facility] Patient discharged. Outpatient Attender: Juan Conte MD CPSCAORT-ONCPDMED 08:27:00 AM EDT - 05/01/2020 08:28:00 AM EDT 2YR FU FACTOR v LEIDEN MUTATION [facility] 2YR FU FACTOR v LEIDEN MUTATION Patient discharged. Emergency Attender: Karel Vásquez M.D. SURG-ER 04/15 07:25:00 PM EDT - 04/16/2020 01:18:00 AM EDT [facility]. Patient discharged. Emergency Attender: Karel Vásquez M.D. SURG-ER 04/08 09:13:00 PM EDT - 04/09/2020 02:13:00 AM EDT [facility]. Patient discharged. Preadmit Attender: KENROY PHELPS MD 03/06/2020 10:56:00 AM EDT [facility] Inpatient Attender: Sherrie James MD Attender: Sherrie James MDAdmitter: Sherrie James MDConsultant: ESTELA GARCIAConsultant: Estela Garcia NPConsultant: Amy Grewal RNPConsultant: AMY GREWAL AUTOMOTIVE TEACHER CPSCAORT-OBSERV 02/23/2020 02:13:00 PM EDT - 02/26/2020 04:40:00 PM EDT INTRACTABLE VOMITING; ENTEROCOLITIS [facility] INTRACTABLE VOMITING; ENTEROCOLITIS Patient discharged. Emergency Attender: Talib Huerta D.O. SURG-ER 09:40:00 PM EDT - 02/22/2020 06:54:00 AM EDT [facility]. Patient discharged. Emergency Attender: Estela Henning D.O. SURG-ER 12:35:00 AM EDT - 01/22/2020 04:46:00 AM EDT [facility]. Patient discharged. Outpatient Attender: PROSPER MALONEY-IMAPD 01/11/2020 1 1:18:00 AM EDT - 01/11/2020 11:19:00 AM EDT R06.02 [facility] R06.02 Patient discharged. Emergency SURG-ER 01/03/2020 04:49:00 PM EDT [facility]. Patient discharged. Outpatient Attender: Hao Garcia MD CPSCAORT-CPSCADER 0 04:15:00 PM EDT - 11/23/2019 04:16:00 PM EDT [facility] Patient discharged. Outpatient Attender: PROSPER MEJIAORT-CPSNFFPP 11/17/2019 01:43:00 PM EDT - 11/17/2019 01:44:00 PM EDT [facility] Patient discharged. Preadmit Attender: Mago MAGALLON CPSCAORT-PRSLAPT 10/19/2019 12:00:00 AM EDT RIGHT SHOULDER PAIN [facility] RIGHT SHOULDER PAIN Preadmit Attender: PROSPER THOMAS CPSCAORT-IMAPD 10/05/2019 11:00:00 AM EDT SOB [facility] SOB Outpatient Attender: Cas Orellana MDAttender: [id number] Cas Orellana MD CPSCAORT-CPSCARHE 09/21/2019 09:53:00 AM EDT - 09/21/2019 09:54:00 AM ED T I73.00 [facility] I73.00 Patient discharged. Outpatient Attender: PROSPER MONTANOCAORT-CPSNFFPP 09/14/2019 10:24:00 AM EST - 09/14/2019 10:25:00 AM EST [facility] Patient discharged. Outpatient Attender: Mago MAGALLON CPSCAORT-CPSOMPMC 12/2019 07:55:00 AM EST - 08/19/2019 07:56:00 AM EST [facility] Patient discharged. Outpatient Attender: Nancy WILLIAMP CPSCAORT-CPSCAORT 1 09:10:00 AM EST - 07/13/2019 09:11:00 AM EST [facility] Patient discharged. Emergency ER-ER 07/08/2019 11:40:00 PM [facility]. Patient discharged. [address] [place] [address] 07/05/2019 12:00:00 AM EST eCW1 ([facility]) Emergency Attender: Jonathan Shah M.D. ER-ER 03:32:00 PM EST - 06/30/2019 04:42:00 PM [facility]. Patient discharged. Medications Medication Brand [...] Every 6 Hrs 05 00,1100,1700,[address] [facility] Acetaminophen 325 MG / Oxycodone Hydroch loride 5 MG Oral Tablet [Percocet] Oxycodone HCl/Acetaminophen (Percocet 5-325 MG Tablet) 1 EACH TABLET Oxycodone HCl/Acetaminophen (Percocet 5-325 MG Tablet) 1 EACH TABLET 05/11/2020 12:00:00 AM EDT 1 completed Every 6 Hrs 05 00,1100,1700,[address] [facility] Acetaminophen 325 MG / Oxycodone Hydroch loride 5 MG Oral Tablet [Percocet] Oxycodone HCl/Acetaminophen (Percocet 5-325 MG Tablet) 1 EACH TABLET Oxycodone HCl/Acetaminophen (Percocet 5-325 MG Tablet) 1 EACH TABLET 05/11/2020 12:00:00 AM EDT 1 completed Every 6 Hrs 05 00,1100,1700,[address] [facility] Wellbutrin 75 mg tablet bupropion HCl completed take 1 tablet by oral route 3 times every day [facility] ([facility]) Danazol 50 MG Oral Capsule danazol 50 mg capsule danazol 50 mg caps ule 1.00 {capsule} ORAL completed take 1 capsule by or al route 2 times every day [facility] ([facility]) buspirone hydrochloride 5 MG Oral Tablet buspirone 5 m g tablet buspirone 5 mg tablet 1 {tablet} ORAL completed miguelina e 1 tablet by oral route 2 times every day [facility] ([facility]) topiramate 50 MG Oral Tablet [Topamax] Topamax 50 mg t ablet Topamax 50 mg tablet 1 {tablet} ORAL completed topiramate 50 MG Oral Tablet [Topamax] [facility] ([facility]) 24 HR Amphetamine aspartate 6.25 [...] Capsule [Adderall] [facility] ([facility]) Insurance Providers Payer name Policy type / Coverage type Policy ID Covered libertarian ID Covered libertarian's relationship to earl Policy Earl Plan Information [employer] COMMUNITY PLAN [id number] [id number] SP [id number] [facility] NYCDFHP self NYCDFHP [facility] COMMUNITY [id number] Unemploye d [id number] [facility](MCAID) O [id number] S [id number] [facility] COMMUNITY PLAN [id number] SP [id number] [facility] [id number] S [id number] ANSI-Commercial [id number] ANSI-Commercial [id number] [facility] COMMUNITY PLAN [id number] SP [id number] ANSI-Commercial [id number] MEDICAID [id number] SP [id number] ANSI-Commercial [id number] ANSI-Commercial [id number] [facility] [id number] S [id number] [facility] Plan Commercial [id number] Self [id number] [facility] Plan Commercial [id number] Self [id number] [facility] [place] [id number] SP [id number] [facility] I [id number] Self [id number] [facility] Comm Plan Medicaid F [id number] SELF [id number] Problems, Conditions, and Diagnoses Code Display Name Description Problem Type Effective Dates Data Source(s) F90.2 Attention-deficit hyperactivity disorder , combined type Attention- Deficit/Hyperactivity Disorder, Combined presentation Condition 08/29/2020 12:00:00 AM EST [facility] ([facility]) F43.12 Post-traumatic stress disorder, chronic Post-traumatic stress disorder, chronic Condition 08/29/2020 12:00:00 AM EST [facility] ([facility]) F43.9 Reaction to severe stress, unspecified U nspecified Trauma- and Stressor- Related Disorder Condition 07/25/2020 12:00:00 AM EST [facility] ([facility]) R94.5 Abnormal results of liver function studi es ABNORMAL RESULTS OF LIVER FUNCTION STUDIES Diagnosis 05/11/2020 10:45:00 AM EDT [facility] 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 F90.9 Attention-deficit hyperactivity disorder , unspecified type ATTENTION- DEFICIT HYPERACTIVITY DISORDER, UNSPECIFIED TYPE Diagnosis 02/22 02:13:00 PM T [facility] R11.2 Nausea with vomiting, unspecified NAUSEA WITH VO MITING, UNSPECIFIED Diagnosis 02/23/2020 02:13:[address] [facility] E87.6 Hypokalemia HYPOKALEMIA Diagnosis 02/23/2020 02:13:[address] [facility] F41.8 Other specified anxiety disorders OTHER SPECIFIE D ANXIETY DISORDERS Diagnosis 02/23/2020 02:13:00 PM T [facility] F31.9 Bipolar disorder, unspecified BIPOLAR DISORDER, UNSPEC IFIED Diagnosis 02/23/2020 02:13:[address] [facility] N80.9 Endometriosis, unspecified ENDOMETRIOSIS, UNSPECIFIED Diagnosis 02/23/2020 02:13:[address] [facility] I73.00 Raynaud's syndrome without gangrene RAYNAUD'S SY NDROME WITHOUT GANGRENE Diagnosis 02/23/2020 02:13:[address] [facility] J45.909 Unspecified asthma, uncomplicated UNSPECIFIED THMA, UNCOMPLICATED Diagnosis 02/23/2020 02:13:[address] [facility] A07.2 Cryptosporidiosis CRYPTOSPORIDIOSIS Diagnosis 02/23/2020 02:13:[address] [facility] D68.51 Activated protein C resistance ACTIVATED PROTEIN C RES ISTANCE Diagnosis 02/23/2020 02:13:[address] 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 R94.31 Abnormal electrocardiogram [ECG] [EKG] A BNORMAL ELECTROCARDIOGRAM [ECG] [EKG] Diagnosis 01/11/2020 11:18:00 AM [facility] R06.02 Shortness of breath SHORTNESS OF BREATH Diagnosis 0 01/11/2020 11:18:[address] [facility] Surgeries/Procedures Procedure Description Date Indications Data Source(s) Extended Individual Psychotherapy - 45 min 08/29/2020 12:00:00 AM EST - 08/29/2020 12:00:00 AM EST [facility] ([facility]) Extended Individual Psychotherapy - 45 min 12:00:00 AM EST [facility] ([facility]) Extended Individual Psychotherapy - 45 min 08/15/2020 12:00:00 AM EST - 08/15/2020 12:00:00 AM EST [facility] ([facility]) Extended Individual Psychotherapy - 45 min 12:00:00 AM EST [facility] ([facility]) CVR Slag Production Worker.Svc. Other 08/11/2020 12:00:00 AM EST - 2020 12:00:00 AM EST [facility] ([facility]) Est Pt PC Exp Prob Focused 08/11/2020 12 :00:00 AM EST - 08/11/2020 12:00:00 AM EST [facility] Psychiatric Diagnostic Evaluation (Non-Medical) 08/01/2020 12:00:00 AM EST - 08/01/2020 12:00:00 AM EST [facility] ([facility]) Psychiatric Diagnostic Evaluation (Non-Medical) 2020 12:00:00 AM EST [facility] ([facility]) Brief Individual Psychotherapy - 30 min 07/25/2020 12:00:00 AM EST - 07/25/2020 12:00:00 AM EST [facility] ([facility]) Brief Individual Psychotherapy - 30 min 07/25/2020 12: 00:00 AM EST [facility] ([facility]) EMERGENCY DEPARTMENT VISIT HIGH/URGENT SEVERITY EMERGENCY DE PT VISIT 04/15/2020 12:00:00 AM EDT [facility]. EMERGENCY DEPARTMENT VISIT HIGH/URGENT SEVERITY EMERGENCY DE PT VISIT 04/15/2020 12:00:00 AM T [facility]. EMERGENCY DEPARTMENT VISIT HIGH/URGENT SEVERITY EMERGENCY DE PT VISIT 04/15/2020 12:00:00 AM EDT [facility]. EMERGENCY DEPARTMENT VISIT HIGH/URGENT SEVERITY EMERGENCY DE PT VISIT [facility] HIGH/URGENT SEVERITY EMERGENCY DE PT VISIT 04/15/2020 12:00:00 AM T [facility]. EMERGENCY DEPARTMENT VISIT HIGH/URGENT SEVERITY EMERGENCY DE PT VISIT 04/15/2020 12:00:00 AM [facility]. EMERGENCY DEPARTMENT VISIT HIGH/URGENT SEVERITY EMERGENCY DE PT VISIT 04/08/2020 12:00:00 AM [facility]. EMERGENCY DEPARTMENT VISIT HIGH/URGENT SEVERITY EMERGENCY DE PT VISIT 04/08/2020 [facility] V[facility] HIGH/URGENT SEVERITY EMERGENCY DE PT VISIT 04/08/2020 12:00:00 AM [facility]. EMERGENCY DEPARTMENT VISIT HIGH/URGENT SEVERITY EMERGENCY DE PT VISIT 04/08/2020 12:00:00 AM [facility]. EMERGENCY DEPARTMENT VISIT HIGH/URGENT SEVERITY EMERGENCY DE PT VISIT 04/08/2020 12:00:00 AM EDT [facility]. EMERGENCY DEPARTMENT VISIT HIGH/URGENT SEVERITY EMERGENCY DE PT VISIT 04/08/2020 12:00:00 AM T [facility]. EMERGENCY DEPARTMENT VISIT HIGH/URGENT SEVERITY EMERGENCY DE PT VISIT 04/08/2020 [facility] VIS[facility] HIGH/URGENT SEVERITY EMERGENCY DE PT VISIT 04/08/2020 12:00:[address] [facility] [id number] 02/22/2020 12:00:00 AM EDT [facility] Injection, acetaminophen, 10 mg 02/22/2020 12:00:00 AM EDT [facility] Non-covered item or service [facility] SE[facility]&THREAT [facility] EMERGENCY DE PT VISIT 02/21/2020 12:00:[address] [facility] EMERGENCY DEPT VISIT HIGH SEVERITY&THREAT FUNCJ EMERGENCY DE PT VISIT 02/21/2020 12:00:[address] [facility] EMERGENCY DEPT VISIT HIGH SEVERITY&THREAT FUNCJ EMERGENCY DE PT VISIT 02/21/2020 12:00:00 AM [facility] EMERGENCY DEPT VISIT HIGH SEVERITY&THREAT FUNCJ EMERGENCY DE PT VISIT 02/21/2020 [facility] SEVERITY&THREAT [facility]J EMERGENCY DE PT VISIT 02/21/2020 [facility] HIGH SEVERITY&THREAT [facility]J EMERGENCY DE PT VISIT 02/21/2020 [facility] HIGH SEVERITY&THREAT F[facility]J EMERGENCY DE PT VISIT 02/21/2020 12:00:00 AM [facility] EMERGENCY DEPT VISIT HIGH SEVERITY&THREAT FUNCJ EMERGENCY DE PT VISIT 02/21/2020 [facility] HIGH SEVERITY&THREAT FUNCJ EMERGENCY DE PT VISIT 02/21/2020 [facility] HIGH SEVERITY&THREAT FUNCJ EMERGENCY DE PT VISIT 02/21/2020 12:00:[address] [facility] EMERGENCY DEPARTMENT VISIT MODERATE SEVERITY EMERGENCY DEPT VISIT 01/22/2020 12:00:00 AM [facility] EMERGENCY DEPARTMENT VISIT HIGH/URGENT SEVERITY EMERGENCY DE PT VISIT 01/22/2020 [facility] MODERATE SEVERITY EMERGENCY DEPT VISIT 01/22/2020 [facility] HIGH/URGENT SEVERITY EMERGENCY DE PT VISIT 01/22/2020 12:00:00 AM [facility]. EMERGENCY DEPARTMENT VISIT MODERATE SEVERITY EMERGENCY DEPT VISIT 01/22/2020 12:00:00 AM EDT [facility]. EMERGENCY DEPARTMENT VISIT HIGH/URGENT SEVERITY EMERGENCY DE PT VISIT 01/22/2020 12:00:00 AM [facility]. EMERGENCY DEPARTMENT VISIT MODERATE SEVERITY EMERGENCY DEPT VISIT 01/22/2020 12:00:00 AM [facility]. EMERGENCY DEPARTMENT VISIT HIGH/URGENT SEVERITY EMERGENCY DE PT VISIT 01/22/2020 12:00:00 AM T [facility]. EMERGENCY DEPARTMENT VISIT MODERATE SEVERITY EMERGENCY DEPT VISIT 01/22/2020 12:00:00 AM [facility]. EMERGENCY DEPARTMENT VISIT HIGH/URGENT SEVERITY EMERGENCY DE PT VISIT 01/22/2020 12:00:00 AM [facility]. EMERGENCY DEPARTMENT VISIT MODERATE SEVERITY EMERGENCY DEPT VISIT 01/22/2020 12:00:00 AM [facility]. EMERGENCY DEPARTMENT VISIT HIGH/URGENT SEVERITY EMERGENCY DE PT VISIT 01/22/2020 12:00:00 AM [facility]. EMERGENCY DEPARTMENT VISIT MODERATE SEVERITY EMERGENCY DEPT VISIT 01/03/2020 12:00:00 AM [facility]. EMERGENCY DEPARTMENT VISIT MODERATE SEVERITY EMERGENCY DEPT VISIT 01/03/2020 12:00:00 AM [facility]. EMERGENCY DEPARTMENT VISIT MODERATE SEVERITY EMERGENCY DEPT VISIT 01/03/2020 12:00:00 AM [facility]. EMERGENCY DEPARTMENT VISIT MODERATE SEVERITY EMERGENCY DEPT VISIT 01/03/2020 12:00:00 AM [facility]. EMERGENCY DEPARTMENT VISIT MODERATE SEVERITY EMERGENCY DEPT VISIT 01/03/2020 12:00:00 AM [facility]. EMERGENCY DEPARTMENT VISIT MODERATE SEVERITY EMERGENCY DEPT VISIT 01/03/2020 12:00:00 AM [facility]. EMERGENCY DEPARTMENT VISIT MODERATE SEVERITY EMERGENCY DEPT VISIT 01/03/2020 12:00:00 AM [facility]. EMERGENCY DEPARTMENT VISIT MODERATE SEVERITY EMERGENCY DEPT VISIT 01/03/2020 12:00:00 AM [facility]. EMERGENCY DEPARTMENT VISIT MODERATE SEVERITY EMERGENCY DEPT VISIT 01/03/2020 12:00:00 AM [facility]. EMERGENCY DEPARTMENT VISIT MODERATE SEVERITY EMERGENCY DEPT VISIT 01/03/2020 12:00:00 AM [facility] EMERGENCY DEPARTMENT VISIT MODERATE SEVERITY EMERGENCY DEPT VISIT 01/03/2020 12:00:00 AM [facility] EMERGENCY DEPARTMENT VISIT MODERATE SEVERITY EMERGENCY DEPT VISIT 01/03/2020 12:00:00 AM [facility] EMERGENCY DEPARTMENT VISIT MODERATE SEVERITY EMERGENCY DEPT VISIT 01/03/2020 12:00:00 AM [facility] EMERGENCY DEPARTMENT VISIT MODERATE SEVERITY EMERGENCY DEPT VISIT 01/03/2020 12:00:00 AM [facility]. EMERGENCY DEPARTMENT VISIT MODERATE SEVERITY EMERGENCY DEPT VISIT 07/08/2019 12:00:00 AM [facility]. EMERGENCY DEPARTMENT VISIT MODERATE SEVERITY EMERGENCY DEPT VISIT 07/08/2019 12:00:00 AM [facility]. INCISION & DRAINAGE ABSCESS SIMPLE/SINGLE DRAINAGE OF SKIN A BSCESS 07/08/2019 12:00:00 AM [facility] INCISION & DRAINAGE ABSCESS SIMPLE/SINGLE DRAINAGE OF SKIN A BSCESS 07/08/2019 12:00:00 AM [facility] Results ID Date Data Source [id number] 05/24/2020 02:25:00 AM [facility] PATIENT HISTORY: EXAM REASON:INJURY PAT IENT [...] 24, 2020 2:25:37 AM EST by:Pradeep Sandhu, [place] Board of RadiologyNOTE: For CT examinations, dose [...] rce(s) Supporting Document(s) ID Date Data Source [id number] 05/16/2020 09:36:00 PM EST [employer] CT RIGHT FOREARM WITHOUT CONTRASTNo frac [...] rce(s) Supporting Document(s) ID Date Data Source [id number] 05/14/2020 11:17:00 AM EST [employer] RIGHT FOREARM SERIESThere is normal alig [...] rce(s) Supporting Document(s) ID Date Data Source [id number] 05/14/2020 11:17:00 AM EST [employer] RIGHT WRIST SERIESNo evidence for fractu res, subluxation or adjacent soft tissue swellingis noted.IMPRESSION: UNREMARKABLE WRIST.Dictated on 05/14/20 1117 by Molina Teixeira M.D.Transcribed on 05/15/20 0558 by Chrissie Lowe by Molina Teixeira M.D. on 05/15/20 0952Sign by: Molina Teixeira M.D. Name Value Range Interpretation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 Data Source(s) Weight (Calculated Kilograms) 88.72 88.72 [facility] Height (Calculated Centimeters) 154.94 154. 94 [facility] Body Mass Index (BMI) 36.9 36.9 [facility] ID Date Data Source [id number] 09/15/2019 12:28:00 AM [facility] Name Value Range Interpretation Code Description Data Source(s) Weight (Calculated Kilograms) 88.72 88.72 [facility] Height (Calculated Centimeters) 154.94 154. 94 [facility] Body Mass Index (BMI) 36.9 36.9 [facility] ID Date Data Source [id number] 08/20/2019 12:03:00 AM [facility] Name Value Range Interpretation Code Description Data Source(s) Weight (Calculated Kilograms) 88.72 88.72 [facility] Height (Calculated Centimeters) 154.94 154. 94 [facility] Body Mass Index (BMI) 36.9 36.9 [facility] ID Date Data Source [id number] 07/15/2019 08:02:00 AM [facility] Name Value Range Interpretation Code Description Data Source(s) Weight (Calculated Kilograms) 88.72 88.72 [facility] Height (Calculated Centimeters) 154.94 154. 94 [facility] Body Mass Index (BMI) 36.9 36.9 [facility] Patient Treatment Plan of Care Planned Activity Planned Date Details Description Data Source (s) Acetaminophen 325 MG / Oxycodone Hydrochloride 5 MG Or al Tablet [Percocet] 05/11/2020 12:00:00 [facility] Acetaminophen 325 MG / Oxycodone Hydrochloride 5 MG Or al Tablet [Percocet] 05/11/2020 12:00:00 AM [facility]T [facility] Acetaminophen 325 MG / Oxycodone Hydrochloride 5 MG Or al Tablet [Percocet] 05/11/2020 12:00:00 AM EDT [facility] Danazol 50 MG Oral Capsule N [facility]Gen ([facility]) topiramate 50 MG Oral Tablet [Topamax] [facility] ([facility]) Wellbutrin 75 mg tablet Next [facility] ([facility]) 24 HR Amphetamine aspartate 6.25 MG / Am phetamine Sulfate 6.25 MG / Dextroamphetamine saccharate 6.25 MG / Dextroamphetamine Sulfate 6.25 MG Extended Release Oral Capsule [Adderall] [facility] ([facility]) buspirone hydrochloride 5 MG Oral Tablet [facility] ([facility])
[2020-09-01] MEDS ORDERED: IBUPROFEN 600MG TAB PO ONE (00:45)
[2020-09-01] MEDS ORDERED: ACETAMINOPHEN 500 MG TAB PO ONE (00:45)
--- OUTSIDE RECORDS SUMMARY | 2020-09-01 01:18 | CCD ---
Author Author [facility] Organization [facility] Address Unknown Phone Unavailable Care Team Providers Care Drum Sander Setter Name Role Phone PIIT, CARMELI FLOS Unavailable [...] Unavailable Unavailable Raudel Tejada MD Unavailable Unavailable Raudle Tejada MD Unavailable Unavailable Wayne Henning D.O. Unavailable Unavailable Delmy Garcia TITRATOR Unavailable Unavailable KENROY PHELPS MD Unavailable Unavailable HERO GARCIA Unavailable Unavailable HERO GARCIA Unavailable Unavailable HERO GARCIA ESTELA Unavailable Unavailable Kocan, J Mago TECHNICAL DELIVERY MANAGER Unavailable Unavailable Kocan, J Mago TECHNICAL DELIVERY MANAGER Unavailable Unavailable Kocan, J Mago TECHNICAL DELIVERY MANAGER Unavailable Unavailable Kocan, J Mago TECHNICAL DELIVERY MANAGER Unavailable Unavailable Kocan, J Mago TECHNICAL DELIVERY MANAGER Unavailable Unavailable Kocan, J Mago TECHNICAL DELIVERY MANAGER Unavailable Unavailable Kocan, J Mago TECHNICAL DELIVERY MANAGER Unavailable Unavailable Kocan, J Mago TECHNICAL DELIVERY MANAGER Unavailable Unavailable Kocan, J Mago TECHNICAL DELIVERY MANAGER Unavailable Unavailable Kocan, J Mago TECHNICAL DELIVERY MANAGER Unavailable Unavailable Kocan, J Mago TECHNICAL DELIVERY MANAGER Unavailable Unavailable Kocan, J Mago TECHNICAL DELIVERY MANAGER Unavailable Unavailable Kocan, J Mago TECHNICAL DELIVERY MANAGER Unavailable Unavailable Emily Phelps M.D. Unavailable Unavailable Cas Orellana MD Unavailable Unavailable Papo, M Nancy DEPUTY CORONER INVESTIGATOR Unavailable Papo, M Nancy DEPUTY CORONER INVESTIGATOR Unavailable Papo, M Nancy DEPUTY CORONER INVESTIGATOR Unavailable Papo, M Nancy DEPUTY CORONER INVESTIGATOR Unavailable Papo, M Nancy DEPUTY CORONER INVESTIGATOR Unavailable Barros, M Nancy DEPUTY CORONER INVESTIGATOR Unavailable Barros, M Nancy DEPUTY CORONER INVESTIGATOR Unavailable Papo, M Nancy DEPUTY CORONER INVESTIGATOR Unavailable Esteban, [id number] MD Cas PATIÑO Unavailable [phone] Esteban, [id number] MD Cas PATIÑO Unavailable [phone] Esteban, [id number] MD Cas PATIÑO Unavailable [phone] Esteban, [id number] MD Cas PATIÑO Unavailable [phone] Esteban, [id number] MD Cas MD Unavailable Esteban, [id number] MD Cas MD Unavailable Esteban, [id number] MD Cas MD Unavailable Esteban, [id number] MD Cas MD Unavailable Esteban, [id number] MD Cas MD Unavailable Esteban, [id number] MD Cas MD Unavailable Esteban, [id number] MD Cas MD Unavailable Esteban, [id number] MD Cas MD Unavailable Esteban, [id number] MD Cas MD Unavailable Esteban, [id number] MD Cas MD Unavailable Esteban, [id number] MD Cas MD Unavailable Esteban, [id number] MD Cas MD Unavailable Esteban, [id number] MD Cas MD Unavailable Esteban, [id number] MD Cas MD Unavailable Esteban, [id number] MD Cas MD Unavailable Esteban, [id number] MD Cas MD Unavailable Esteban, [id number] MD Cas MD Unavailable Esteban, [id number] MD Cas MD Unavailable Esteban, [id number] MD Cas MD Unavailable Esteban, [id number] MD Cas MD Unavailable Esteban, [id number] MD Csa MD Unavailable Esteban, [id number] MD Cas MD Unavailable Esteban, [id number] MD Cas MD Unavailable [phone] Esteban, [id number] MD Cas PATIÑO Unavailable [phone] Esteban, [id number] MD Cas PATIÑO Unavailable [phone] Esteban, [id number] MD Cas PATIÑO Unavailable [phone] Esteban, [id number] MD Cas PATIÑO Unavailable [phone] NOSTROM, AMY TITRATOR Unavailable Unavailable NOSTROM, AMY TITRATOR Unavailable Unavailable NOSTROM, AMY TITRATOR Unavailable Unavailable NOSTROM, AMY TITRATOR Unavailable Unavailable NOSTROM, AMY TITRATOR Unavailable Unavailable NOSTROM, AMY TITRATOR Unavailable Unavailable NOSTROM, AMY TITRATOR Unavailable Unavailable NOSTROM, AMY TITRATOR Unavailable Unavailable NOSTROM, AMY TITRATOR Unavailable Unavailable NOSTROM, AMY TITRATOR Unavailable Unavailable NOSTROM, AMY TITRATOR Unavailable Unavailable NOSTROM, AMY TITRATOR Unavailable Unavailable NOSTROM, AMY TITRATOR Unavailable Unavailable Wayne Huerta D.O. Unavailable Unavailable Curry, Mercy Unavailable Unavailable Curry, Mercy Unavailable Unavailable Curry, Mercy Unavailable Unavailable ConteJuan parry MD Unavailable [phone] Conte, Juan PATIÑO Unavailable [phone] Conte, Juan PATIÑO Unavailable [phone] Conte, Juan PATIÑO Unavailable [phone] ConteJuan MD Unavailable [phone] ConteJuan MD Unavailable [phone] Conte, Juan PATIÑO Unavailable [phone] ConteJuan MD Unavailable [phone] Conte, Juan PATIÑO Unavailable [phone] Mya James MD Unavailable Unavailable Nostrom, R Amy TECHNICAL DELIVERY MANAGER Unavailable Unavailable Winnie Garrido Unavailable Emily Shah [...] Unavailable Jacob, Mya Salas MD Unavailable Unavailable Jaocb, Mya Salas MD Unavailable Unavailable Jacob, Mya [...] Unavailable Jacob, Mya Salas MD Unavailable Unavailable Ajcob, Mya Salas MD Unavailable Unavailable Jacob, Mya [...] Unavailable Jacob, Mya Salas MD Unavailable Unavailable Ajcob, A Maritza PATIÑO Unavailable Unavailable Jacob, Mya [...] is protected by Article 27-F of the [facility] Public Health law. If you continue you may have access to information: Regarding HIV / AIDS; Provided by facilities licensed or operated by the [facility] Office of Mental Health; or Provided by the [facility] Office for People With Developmental Disabilities. If such information is present, then the following [facility] mandated warning applies: This information has [...] law may result in a fine or penitentiary sentence or both. A general authorization for the release of medical or other information is NOT sufficient authorization for further disc losure. Allergies and Adverse Reactions Type Description Substance Reaction Status Data Source(s ) Drug allergy permethrin Permethrin Active [facility] Drug allergy Drug allergy Environmental [facility] Allergy [facility] Family History Family Member Name Family Member Gender Family Member Status Date o f Status Description Data Source(s) Unknown Female Diagnosis 04/04/2014 12:00:00 AM EDT [facility] ([facility]) Unknown Female Diagnosis 04/04/2014 12:00:00 AM EDT [facility] ([facility]) Unknown Unknown Problem MEDENT (Dr Larry Jett) siblings and children Encounters Encounter Providers Location Date Indications Data Source(s ) Extended Individual Psychotherapy - 45 min Attender: Shaye fermin [facility] 08/29/2020 03:00:00 AM EST - 08/29/2020 03:00:00 AM EST [facility] ([facility]) Attender: Winnie Garrido 08/29/2020 12:00:00 AM EST [facility] ([facility]) Attender: Maritza Marcus 0 08/24/2020 04:54:00 PM EST - 08/24/2020 04:54:00 PM EST [facility] ([facility]) Extended Individual Psychotherapy - 45 min Attender: Shaye Garrido [facility] 08/15/2020 03:00:00 AM EST - 08/15/2020 03:00:00 [...] syndrome without gangreneEncounter for other general examination [facility] ([facility]) Migraine w/o aura, not intractable, w/o status migrainosus Major depressive disorder, single episod e, unspecified Anxiety disorder, unspecified Personal history of other venous thrombo sis and embolism Activated protein C resistance Endometriosis, unspecified Unspecified asthma, uncomplicated Attention-deficit hyperactivity disorder , unspecified type Raynaud's syndrome without gangrene Encounter for other general examination Psychiatric Diagnostic Evaluation (Non-Medical) Attender: Yvonne Garrido [facility] 08/01/2020 03:00:00 AM EST - 08/01/2020 03:00:00 AM EST [facility] ([facility]) Attender: Winnie Garrido 08/01/2020 12:00:00 AM EST [facility] ([facility]) Brief Individual Psychotherapy - 30 min Attender: Marielena bell [facility] Kandi 07/25/2020 02:00:00 AM EST - 07/25/2020 02:00:00 AM EST [facility] ([facility]) Attender: Marielena Arechiga 07/25/2020 12:00:00 AM EST [facility] ([facility]) Preadmit Attender: Juan Conte MD CPSCAORT-ONCPDMED 12:00:00 AM EST FU DVT DISCUSS DENTAL WORK [facility] FU DVT DISCUSS DENTAL WORK Emergency Attender: Himanshu Tejada MD SURG-ER 05/14 01:36:00 AM EST - 05/24/2020 06:11:00 AM EST [facility] Patient discharged. Emergency SURG-ER 05/16/2020 08:40:00 PM EST [facility]. Patient discharged. Outpatient Attender: Juan Conte MDConsultant: Farzad Phelps M.D. SURG-ULTRA 05/11/2020 10:45:00 AM EDT [facility]. Emergency Attender: Vasu Devlin M.D.Referrer: DIANN BARAHONA MD SURG-ER 05/10/2020 09:11:00 PM EDT - 05/11/2020 01:47:00 AM EDT [facility]. Patient discharged. Outpatient [facility] 05/04/2020 01:20:00 PM EDT - 05/04/2020 01:21:00 PM EDT [facility] Patient discharged. Outpatient Attender: Juan Conte MD CPSCAORT-ONCPDMED 08:27:00 AM EDT - 05/01/2020 08:28:00 AM EDT 2YR FU FACTOR v LEIDEN MUTATION [facility] 2YR FU FACTOR v LEIDEN MUTATION Patient discharged. Emergency Attender: Karel Vásquez M.D. SURG-ER 04/15 07:25:00 PM EDT - 04/16/2020 01:18:00 AM EDT [facility]. Patient discharged. Emergency Attender: Karel Vásquez M.D. SURG-ER 04/08 09:13:00 PM EDT - 04/09/2020 02:13:00 AM EDT [facility]. Patient discharged. Preadmit Attender: KENROY PHELPS MD 03/06/2020 10:56:00 AM EDT [facility] Inpatient Attender: Sherrie James MD Attender: Sherrie James MDAdmitter: Sherrie James MDConsultant: ESTELA GARCIAConsultant: Estela Garcia NPConsultant: Amy Grewal RNPConsultant: AMY GREWAL TITRATOR CPSCAORT-OBSERV 02/23/2020 02:13:00 PM EDT - 02/26/2020 04:40:00 PM EDT INTRACTABLE VOMITING; ENTEROCOLITIS [facility] INTRACTABLE VOMITING; ENTEROCOLITIS Patient discharged. Emergency Attender: Talib Huerta D.O. SURG-ER 09:40:00 PM EDT - 02/22/2020 06:54:00 AM EDT [facility]. Patient discharged. Emergency Attender: Estela Henning D.O. SURG-ER 12:35:00 AM EDT - 01/22/2020 04:46:00 AM EDT [facility]. Patient discharged. Outpatient Attender: PROSPER MALONEY-IMAPD 01/11/2020 1 1:18:00 AM EDT - 01/11/2020 11:19:00 AM EDT R06.02 [facility] R06.02 Patient discharged. Emergency SURG-ER 01/03/2020 04:49:00 PM EDT [facility]. Patient discharged. Outpatient Attender: Hao Garcia MD CPSCAORT-CPSCADER 0 04:15:00 PM EDT - 11/23/2019 04:16:00 PM EDT [facility] Patient discharged. Outpatient Attender: PROSPER MEJIAORT-CPSNFFPP 11/17/2019 01:43:00 PM EDT - 11/17/2019 01:44:00 PM EDT [facility] Patient discharged. Preadmit Attender: Mago MAGALLON CPSCAORT-PRSLAPT 10/19/2019 12:00:00 AM EDT RIGHT SHOULDER PAIN [facility] RIGHT SHOULDER PAIN Preadmit Attender: PROSPER THOMAS CPSCAORT-IMAPD 10/05/2019 11:00:00 AM EDT SOB [facility] SOB Outpatient Attender: Cas Orellana MDAttender: [id number] Cas Orellana MD CPSCAORT-CPSCARHE 09/21/2019 09:53:00 AM EDT - 09/21/2019 09:54:00 AM ED T I73.00 [facility] I73.00 Patient discharged. Outpatient Attender: PROSPER MONTANOCAORT-CPSNFFPP 09/14/2019 10:24:00 AM EST - 09/14/2019 10:25:00 AM EST [facility] Patient discharged. Outpatient Attender: Mago MAGALLON CPSCAORT-CPSOMPMC 12/2019 07:55:00 AM EST - 08/19/2019 07:56:00 AM EST [facility] Patient discharged[facility] Outpatient Attender: Nancy WILLIAMP CPSCAORT-CPSCAORT 1 09:10:00 AM EST - 07/13/2019 09:11:00 AM EST [facility] Patient discharged. Emergency ER-ER 07/08/2019 11:40:00 PM [facility]. Patient discharged. [address] [place] [address] 07/05/2019 12:00:00 AM EST eCW1 ([facility]) Emergency Attender: Jonathan Shah M.D. ER-ER 03:32:00 PM EST - 06/30/2019 04:42:00 PM [facility]. Patient discharged. Medications Medication Brand Name Start [...] Every 6 Hrs 05 00,1100,1700,23 as needed [facility] Acetaminophen 325 MG / Oxycodone Hydroch loride 5 MG Oral Tablet [Percocet] Oxycodone HCl/Acetaminophen (Percocet 5-325 MG Tablet) 1 EACH TABLET Oxycodone HCl/Acetaminophen (Percocet 5-325 MG Tablet) 1 EACH TABLET 05/11/2020 12:00:00 AM EDT 1 completed Every 6 Hrs 05 00,1100,1700,23 as needed [facility] Acetaminophen 325 MG / Oxycodone Hydroch loride 5 MG Oral Tablet [Percocet] Oxycodone HCl/Acetaminophen (Percocet 5-325 MG Tablet) 1 EACH TABLET Oxycodone HCl/Acetaminophen (Percocet 5-325 MG Tablet) 1 EACH TABLET 05/11/2020 12:00:00 AM EDT 1 completed Every 6 Hrs 05 00,1100,1700,23 as needed [facility] Wellbutrin 75 mg tablet bupropion HCl completed take 1 tablet by oral route 3 times every day [facility] ([facility]) Danazol 50 MG Oral Capsule danazol 50 mg capsule danazol 50 mg caps ule 1.00 {capsule} ORAL completed take 1 capsule by or al route 2 times every day [facility] ([facility]) buspirone hydrochloride 5 MG Oral Tablet buspirone 5 m g tablet buspirone 5 mg tablet 1 {tablet} ORAL completed miguelina e 1 tablet by oral route 2 times every day [facility] ([facility]) topiramate 50 MG Oral Tablet [Topamax] Topamax 50 mg t ablet Topamax 50 mg tablet 1 {tablet} ORAL completed topiramate 50 MG Oral Tablet [Topamax] [facility] ([facility]) 24 HR Amphetamine aspartate 6.25 MG [...] Capsule [Adderall] [facility] ([facility]) Insurance Providers Payer name Policy type / Coverage type Policy ID Covered green party ID Covered green party's relationship to earl Policy Earl Plan Information [employer] COMMUNITY PLAN [id number] SP [id number] [facility] NYCDFHP self [place] [facility] COMMUNITY [id number] Unemploye d [id number] [facility](MCAID) O [id number] S [id number] [facility] COMM[facility]ITY PLAN [id number] SP [id number] [facility] [id number] S [id number] ANSI-Commercial [id number] ANSI-Commercial [id number] [facility] COMM[facility] PLAN [id number] SP [id number] ANSI-Commercial [id number] MEDICAID [id number] SP [id number] ANSI-Commercial [id number] ANSI-Commercial [id number] [facility] [id number] S [id number] [facility] Plan Commercial [id number] Self [id number] [facility] Plan Commercial [id number] Self [id number] [facility] [place] [id number] SP [id number] [facility] I [id number] Self [id number] [facility] Comm Plan Medicaid F [id number] SELF [id number] Problems, Conditions, and Diagnoses Code Display Name Description Problem Type Effective Dates Data Source(s) F90.2 Attention-deficit hyperactivity disorder , combined type Attention- Deficit/Hyperactivity Disorder, Combined presentation Condition 08/29/2020 12:00:00 AM EST [facility] ([facility]) F43.12 Post-traumatic stress disorder, chronic Post-traumatic stress disorder, chronic Condition 08/29/2020 12:00:00 AM EST [facility] ([facility]) F43.9 Reaction to severe stress, unspecified U nspecified Trauma- and Stressor- Related Disorder Condition 07/25/2020 12:00:00 AM EST [facility] ([facility]) R94.5 Abnormal results of liver function studi es ABNORMAL RESULTS OF LIVER FUNCTION STUDIES Diagnosis 05/11/2020 10:45:00 AM EDT [facility] D68.51 Activated protein C resistance ACTIVATED PROTEIN C RES ISTANCE Diagnosis 05/11/2020 10:45:00 AM EDT [facility] F90.9 Attention-deficit hyperactivity disorder , unspecified type ATTENTION- DEFICIT HYPERACTIVITY DISORDER, UNSPECIFIED TYPE Diagnosis 02/22 02:13:00 PM T [facility] R11.2 Nausea with vomiting, unspecified NAUSEA WITH VO MITING, UNSPECIFIED Diagnosis 02/23/2020 02:13:00 PM [facility] E87.6 Hypokalemia HYPOKALEMIA Diagnosis 02/23/2020 02:13:00 PM [facility] F41.8 Other specified anxiety disorders OTHER SPECIFIE D ANXIETY DISORDERS Diagnosis 02/23/2020 02:13:00 PM T [facility] F31.9 Bipolar disorder, unspecified BIPOLAR DISORDER, UNSPEC IFIED Diagnosis 02/23/2020 02:13:00 PM [facility] N80.9 Endometriosis, unspecified ENDOMETRIOSIS, UNSPECIFIED Diagnosis 02/23/2020 02:13:00 PM [facility] I73.00 Raynaud's syndrome without gangrene RAYNAUD'S SY NDROME WITHOUT GANGRENE Diagnosis 02/23/2020 02:13:00 PM [facility] J45.909 Unspecified asthma, uncomplicated UNSPECIFIED THMA, UNCOMPLICATED Diagnosis 02/23/2020 02:13:00 PM [facility] A07.2 Cryptosporidiosis CRYPTOSPORIDIOSIS Diagnosis 02/23/2020 02:13:00 PM [facility] D68.51 Activated protein C resistance ACTIVATED PROTEIN C RES ISTANCE Diagnosis 02/23/2020 02:13:00 PM [facility] 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 R06.02 Shortness of breath SHORTNESS OF BREATH Diagnosis 0 01/11/2020 11:18:00 AM [facility] Surgeries/Procedures Procedure Description Date Indications Data Source(s) Extended Individual Psychotherapy - 45 min 08/29/2020 12:00:00 AM EST - 08/29/2020 12:00:00 AM EST [facility] ([facility]) Extended Individual Psychotherapy - 45 min 12:00:00 AM EST [facility] ([facility]) Extended Individual Psychotherapy - 45 min 08/15/2020 12:00:00 AM EST - 08/15/2020 12:00:00 AM EST [facility] ([facility]) Extended Individual Psychotherapy - 45 min 12:00:00 AM EST [facility] ([facility]) CVR Meter Installer And Remover.Svc. Other 08/11/2020 12:00:00 AM EST - 2020 12:00:00 AM EST [facility] ([facility]) Est Pt PC Exp Prob Focused 08/11/2020 12 :00:00 AM EST - 08/11/2020 12:00:00 AM EST [facility] ([facility] Psychiatric Diagnostic Evaluation (Non-Medical) 08/01/2020 12:00:00 AM EST - 08/01/2020 12:00:00 AM EST [facility] ([facility]) Psychiatric Diagnostic Evaluation (Non-Medical) 2020 12:00:00 AM EST [facility] ([facility]) Brief Individual Psychotherapy - 30 min 07/25/2020 12:00:00 AM EST - 07/25/2020 12:00:00 AM EST [facility] ([facility]) Brief Individual Psychotherapy - 30 min 07/25/2020 12: 00:00 AM EST [facility] ([facility]) EMERGENCY DEPARTMENT VISIT HIGH/URGENT SEVERITY EMERGENCY DE PT VISIT 04/15/2020 12:00:00 AM EDT [facility]. EMERGENCY DEPARTMENT VISIT HIGH/URGENT SEVERITY EMERGENCY DE PT VISIT 04/15/2020 12:00:00 AM T [facility]. EMERGENCY DEPARTMENT VISIT HIGH/URGENT SEVERITY EMERGENCY DE PT VISIT 04/15/2020 12:00:00 AM EDT [facility]. EMERGENCY DEPARTMENT VISIT HIGH/URGENT SEVERITY EMERGENCY DE PT VISIT [facility] HIGH/URGENT SEVERITY EMERGENCY DE PT VISIT 04/15/2020 12:00:00 AM T [facility]. EMERGENCY DEPARTMENT VISIT HIGH/URGENT SEVERITY EMERGENCY DE PT VISIT 04/15/2020 12:00:00 AM [facility]. EMERGENCY DEPARTMENT VISIT HIGH/URGENT SEVERITY EMERGENCY DE PT VISIT 04/08/2020 12:00:00 AM [facility]. EMERGENCY DEPARTMENT VISIT HIGH/URGENT SEVERITY EMERGENCY DE PT VISIT [facility]/08[facility] HIGH/URGENT SEVERITY EMERGENCY DE PT VISIT 04/08/2020 12:00:00 AM [facility]. EMERGENCY DEPARTMENT VISIT HIGH/URGENT SEVERITY EMERGENCY DE PT VISIT 04/08/2020 12:00:00 AM [facility]. EMERGENCY DEPARTMENT VISIT HIGH/URGENT SEVERITY EMERGENCY DE PT VISIT 04/08/2020 12:00:00 AM EDT [facility]. EMERGENCY DEPARTMENT VISIT HIGH/URGENT SEVERITY EMERGENCY DE PT VISIT 04/08/2020 12:00:00 AM T [facility]. EMERGENCY DEPARTMENT VISIT HIGH/URGENT SEVERITY EMERGENCY DE PT VISIT 04/08/2020 [facility] HIGH/URGENT SEVERITY EMERGENCY DE PT VISIT 04/08/2020 12:00:00 AM EDT [facility] [id number] 02/22/2020 12:00:00 AM EDT [facility] Injection, acetaminophen, 10 mg 02/22/2020 12:00:00 AM EDT [facility] Non-covered item or service 02/22/2020 [facility] HIGH SEVERITY&THREAT FUNCJ EMERGENCY DE PT VISIT 02/21/2020 12:00:00 AM EDT [facility] EMERGENCY DEPT VISIT HIGH SEVERITY&THREAT FUNCJ EMERGENCY DE PT VISIT 02/21/2020 12:00:00 AM EDT [facility] EMERGENCY DEPT VISIT HIGH SEVERITY&THREAT FUNCJ EMERGENCY DE PT VISIT 02/21/2020 12:00:00 AM [facility] EMERGENCY DEPT VISIT HIGH SEVERITY&THREAT FUNCJ EMERGENCY DE PT VISIT 02/21/[facility] SEVERITY&THREAT FUNCJ EMERGENCY DE PT VISIT 02/21/[facility] HIGH SEVERITY&THREAT FUNCJ EMERGENCY DE PT VISIT 02/21/2020 [facility] HIGH SEVERITY&THREAT FUNCJ EMERGENCY DE PT VISIT 02/21/2020 12:00:00 AM [facility] EMERGENCY DEPT VISIT HIGH SEVERITY&THREAT FUNCJ EMERGENCY DE PT VISIT 02/21/2020 [facility] HIGH SEVERITY&THREAT FUNCJ EMERGENCY DE PT VISIT 02/21/2020 [facility] HIGH SEVERITY&THREAT FUNCJ EMERGENCY DE PT VISIT 02/21/2020 12:00:00 AM EDT [facility] EMERGENCY DEPARTMENT VISIT MODERATE SEVERITY EMERGENCY DEPT VISIT 01/22/2020 12:00:00 AM [facility] EMERGENCY DEPARTMENT VISIT HIGH/URGENT SEVERITY EMERGENCY DE PT VISIT 01/22/2020 [facility] MODERATE SEVERITY EMERGENCY DEPT VISIT 01/22/2020 [facility] HIGH/URGENT SEVERITY EMERGENCY DE PT VISIT 01/22/2020 12:00:00 AM [facility]. EMERGENCY DEPARTMENT VISIT MODERATE SEVERITY EMERGENCY DEPT VISIT 01/22/2020 12:00:00 AM EDT [facility]. EMERGENCY DEPARTMENT VISIT HIGH/URGENT SEVERITY EMERGENCY DE PT VISIT 01/22/2020 12:00:00 AM [facility]. EMERGENCY DEPARTMENT VISIT MODERATE SEVERITY EMERGENCY DEPT VISIT 01/22/2020 12:00:00 AM [facility]. EMERGENCY DEPARTMENT VISIT HIGH/URGENT SEVERITY EMERGENCY DE PT VISIT 01/22/2020 12:00:00 AM T [facility]. EMERGENCY DEPARTMENT VISIT MODERATE SEVERITY EMERGENCY DEPT VISIT 01/22/2020 12:00:00 AM [facility]. EMERGENCY DEPARTMENT VISIT HIGH/URGENT SEVERITY EMERGENCY DE PT VISIT 01/22/2020 12:00:00 AM [facility]. EMERGENCY DEPARTMENT VISIT MODERATE SEVERITY EMERGENCY DEPT VISIT 01/22/2020 12:00:00 AM [facility]. EMERGENCY DEPARTMENT VISIT HIGH/URGENT SEVERITY EMERGENCY DE PT VISIT 01/22/2020 12:00:00 AM [facility]. EMERGENCY DEPARTMENT VISIT MODERATE SEVERITY EMERGENCY DEPT VISIT 01/03/2020 12:00:00 AM [facility]. EMERGENCY DEPARTMENT VISIT MODERATE SEVERITY EMERGENCY DEPT VISIT 01/03/2020 12:00:00 AM [facility]. EMERGENCY DEPARTMENT VISIT MODERATE SEVERITY EMERGENCY DEPT VISIT 01/03/2020 12:00:00 AM [facility]. EMERGENCY DEPARTMENT VISIT MODERATE SEVERITY EMERGENCY DEPT VISIT 01/03/2020 12:00:00 AM [facility]. EMERGENCY DEPARTMENT VISIT MODERATE SEVERITY EMERGENCY DEPT VISIT 01/03/2020 12:00:00 AM [facility]. EMERGENCY DEPARTMENT VISIT MODERATE SEVERITY EMERGENCY DEPT VISIT 01/03/2020 12:00:00 AM [facility]. EMERGENCY DEPARTMENT VISIT MODERATE SEVERITY EMERGENCY DEPT VISIT 01/03/2020 12:00:00 AM [facility]. EMERGENCY DEPARTMENT VISIT MODERATE SEVERITY EMERGENCY DEPT VISIT 01/03/2020 12:00:00 AM [facility]. EMERGENCY DEPARTMENT VISIT MODERATE SEVERITY EMERGENCY DEPT VISIT 01/03/2020 12:00:00 AM [facility]. EMERGENCY DEPARTMENT VISIT MODERATE SEVERITY EMERGENCY DEPT VISIT 01/03/2020 12:00:00 AM [facility] EMERGENCY DEPARTMENT VISIT MODERATE SEVERITY EMERGENCY DEPT VISIT 01/03/2020 12:00:00 AM [facility] EMERGENCY DEPARTMENT VISIT MODERATE SEVERITY EMERGENCY DEPT VISIT 01/03/2020 12:00:00 AM [facility] EMERGENCY DEPARTMENT VISIT MODERATE SEVERITY EMERGENCY DEPT VISIT 01/03/2020 12:00:00 AM [facility] EMERGENCY DEPARTMENT VISIT MODERATE SEVERITY EMERGENCY DEPT VISIT 01/03/2020 12:00:00 AM [facility]. EMERGENCY DEPARTMENT VISIT MODERATE SEVERITY EMERGENCY DEPT VISIT 07/08/2019 12:00:00 AM [facility]. EMERGENCY DEPARTMENT VISIT MODERATE SEVERITY EMERGENCY DEPT VISIT 07/08/2019 12:00:00 AM [facility]. INCISION & DRAINAGE ABSCESS SIMPLE/SINGLE DRAINAGE OF SKIN A BSCESS 07/08/2019 12:00:00 AM [facility] INCISION & DRAINAGE ABSCESS SIMPLE/SINGLE DRAINAGE OF SKIN A BSCESS 07/08/2019 12:00:00 AM [facility] Results ID Date Data Source [id number] 05/24/2020 02:25:00 AM [facility] PATIENT HISTORY: EXAM REASON:INJURY PAT [...] 24, 2020 2:25:37 AM EST by:Pradeep Sandhu, [place] Board of RadiologyNOTE: For CT examinations, dose [...] rce(s) Supporting Document(s) ID Date Data Source [id number] 05/16/2020 09:36:00 PM EST [employer] CT RIGHT FOREARM WITHOUT CONTRASTNo frac [...] rce(s) Supporting Document(s) ID Date Data Source [id number] 05/14/2020 11:17:00 AM EST [employer] RIGHT FOREARM SERIESThere is normal alig [...] rce(s) Supporting Document(s) ID Date Data Source [id number] 05/14/2020 11:17:00 AM EST [employer] RIGHT WRIST SERIESNo evidence for fractu res, subluxation or adjacent soft tissue swellingis noted.IMPRESSION: UNREMARKABLE WRIST.Dictated on 05/14/20 1117 by Molina Teixeira M.D.Transcribed on 05/15/20 0558 by Chrissie Lowe by Molina Teixeira M.D. on 05/15/20 0952Sign by: Molina Teixeira M.D. Name Value Range Interpretation Code Description Data Bernice rce(s) Supporting Document(s) ID Date Data Source [id number] 05/11/2020 12:46:00 PM EDT [employer] RIGHT UPPER EXTREMITY VENOUS ULTRASOUNDC olor [...] rce(s) Supporting Document(s) ID Date Data Source [id number] 04/15/2020 11:32:00 PM EDT [facility].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 Code Description Data Source(s) Weight (Calculated Kilograms) 88.72 88.72 [facility] Height (Calculated Centimeters) 154.94 154. 94 [facility] Body Mass Index (BMI) 36.[address] [facility] ID Date Data Source [id number] 08/20/2019 12:03:00 AM [facility] Name Value Range Interpretation Code Description Data Source(s) Weight (Calculated Kilograms) 88.72 88.72 [facility] Height (Calculated Centimeters) 154.94 154. 94 [facility] Body Mass Index (BMI) 36.[address] [facility] ID Date Data Source [id number] 07/15/2019 08:02:00 AM [facility] Name Value Range Interpretation Code Description Data Source(s) Weight (Calculated Kilograms) 88.72 88.72 [facility] Height (Calculated Centimeters) 154.94 154. 94 [facility] Body Mass Index (BMI) 36.[address] [facility] Patient Treatment Plan of Care Planned Activity Planned Date Details Description Data Source (s) Acetaminophen 325 MG / Oxycodone Hydrochloride 5 MG Or al Tablet [Percocet] 05/11/2020 12:00:00 AM [facility] Acetaminophen 325 MG / Oxycodone Hydrochloride 5 MG Or al Tablet [Percocet] 05/11/2020 12:00:00 AM EDT [facility] Acetaminophen 325 MG / Oxycodone Hydrochloride 5 MG Or al Tablet [Percocet] 05/11/2020 12:00:00 AM EDT [facility] Danazol 50 MG Oral Capsule N [facility]Gen ([facility]) topiramate 50 MG Oral Tablet [Topamax] Next[facility] ([facility]) Wellbutrin 75 mg tablet Next Gen ([facility]) 24 HR Amphetamine aspartate 6.25 MG / Am phetamine Sulfate 6.25 MG / Dextroamphetamine saccharate 6.25 MG / Dextroamphetamine Sulfate 6.25 MG Extended Release Oral Capsule [Adderall] [facility] ([facility]) buspirone hydrochloride 5 MG Oral Tablet [facility] ([facility])
--- NOTE | 2020-09-01 01:35 | REPVR ---
PROCEDURE INFORMATION: Exam: CT Right Lower Extremity Without Contrast, Foot Exam date and time: 09/01/2020 12:40 AM Age: 35 years old Clinical indication: Injury or trauma; Fall; Blunt trauma; Foot; Right; Additional info: Kicked ice while walking, neg XR, pain worsening TECHNIQUE: Imaging protocol: CT of the Right lower extremity without contrast was performed. Exam focused on the foot. Radiation optimization: All CT scans at this facility use at least one of these dose optimization techniques: automated exposure control; mA and/or kV adjustment per patient size (includes targeted exams where dose is matched to clinical indication); or iterative reconstruction. COMPARISON: CR Foot, complete RIGHT 08/29/2020 10:48 PM FINDINGS: Bones/joints: Normal. No acute fracture or dislocation. Soft tissues: There is subcutaneous edema the ball of the foot which is centered at the level of the 2nd metatarsal head. IMPRESSION: 1. Subcutaneous edema of the ball of the foot centered at the level of the 2nd metatarsal head. 2. Otherwise negative CT right foot. No fracture is seen. Electronically signed by: Valentino Cross On 09/01/2020 01:35:02 AM
[2020-09-01 01:47] VITALS: BP 113/56
[2020-09-01] MEDS ORDERED: ACET-683 PO (01:52)
== END 2020-09-01 02:12 | disposition home or self-care (01) ==
LOC: M ED 23:57
DX: R60.0 Localized edema (principal); Z79.899 Other long term (current) drug therapy; Z88.1 Allergy status to other antibiotic agents; Z88.2 Allergy status to sulfonamides; Z88.8 Allergy status to other drugs, medicaments and biological substances; F17.210 Nicotine dependence, cigarettes, uncomplicated

== ENCOUNTER → 2020-09-22 | Outpatient (REF) | payer OTHER ==
[~2020-09-22] MED LIST changes: +ACET-683 PO; +BUPR150T12; -BUPR150T4
[2020-09-22 13:36] LABS: BASO # 0.1 10^3/uL (0.0-0.2); BASO % 0.7 % (0.0-1.0); EOS # 0.5 10^3/uL (0.0-0.5); HEMATOCRIT 46.3 % (36.0-47.0); HEMOGLOBIN 14.9 g/dl (12.0-15.5); LYMPH # 2.3 10^3/uL (1.5-5.0); MEAN CORPUSCULAR HEMOGLOBIN 30.3 pg (27.0-33.0); MEAN CORPUSCULAR HGB CONC 32.2 g/dl (32.0-36.5); MEAN CORPUSCULAR VOLUME 94.3 fl (80.0-96.0); MONO # 0.6 10^3/uL (0.0-0.8); MONO % 8.2 % (2.0-8.0); NEUTROPHILS # 3.9 10^3/uL (1.5-8.5); NEUTROPHILS % 52.8 % (36.0-66.0); PLATELET COUNT, AUTOMATED 278 10^3/uL (150-450); RED BLOOD COUNT 4.91 10^6/uL (4.00-5.40); WHITE BLOOD COUNT 7.4 10^3/uL (4.0-10.0)
[2020-09-22 13:47] LABS: ALBUMIN 3.8 GM/DL (3.2-5.2); ALT/SGPT 28 U/L (12-78); BILIRUBIN,TOTAL 0.3 MG/DL (0.2-1.0); BLOOD UREA NITROGEN 6 MG/DL (7-18); CARBON DIOXIDE LEVEL 31 MEQ/L (21-32); CHLORIDE LEVEL 107 MEQ/L (98-107); CHOLESTEROL LEVEL 143 MG/DL (<200); CHOLESTEROL RISK RATIO 3.864 (<5); CREATININE FOR GFR 1.06 MG/DL (0.55-1.30); FREE T4 0.77 NG/DL (0.76-1.46); GLOMERULAR FILTRATION RATE > 60.0 (>60); GLUCOSE, FASTING 95 MG/DL (70-100); HDL CHOLESTEROL 37 MG/DL (>40); LDL CHOLESTEROL 87 MG/DL (<100); NON-HDL-C 106 MG/DL; POTASSIUM SERUM 3.6 MEQ/L (3.5-5.1); SODIUM LEVEL 140 MEQ/L (136-145); TOTAL PROTEIN 6.6 GM/DL (6.4-8.2); TRIGLYCERIDES LEVEL 96 MG/DL (<150)
[2020-09-22 14:26] LABS: HEMOGLOBIN A1c 4.8 %
[2020-09-22 17:52] LABS: TOTAL 25(OH) VITAMIN D 28.8 NG/ML (30.0-100.0)
== END ==
LOC: M LAB REF 11:28
PROVIDERS: ATTEND Nurse Practitioner Family
DX: E66.9 Obesity, unspecified (principal); F41.9 Anxiety disorder, unspecified

== ENCOUNTER → 2020-11-01 | Outpatient (CLI) | payer OTHER ==
[2020-11-01 15:14] LABS: BASO % 0.8 % (0.0-1.0); EOS # 0.4 10^3/uL (0.0-0.5); EOS % 7.1 % (0.0-3.0); HEMOGLOBIN 15.6 g/dl (12.0-15.5); LYMPH # 1.7 10^3/uL (1.5-5.0); LYMPH % 33.8 % (24.0-44.0); MEAN CORPUSCULAR HEMOGLOBIN 30.1 pg (27.0-33.0); MEAN CORPUSCULAR HGB CONC 31.8 g/dl (32.0-36.5); MEAN CORPUSCULAR VOLUME 94.4 fl (80.0-96.0); MONO # 0.5 10^3/uL (0.0-0.8); MONO % 9.8 % (2.0-8.0); NEUTROPHILS # 2.5 10^3/uL (1.5-8.5); NEUTROPHILS % 48.1 % (36.0-66.0); PLATELET COUNT, AUTOMATED 311 10^3/uL (150-450); RED BLOOD COUNT 5.19 10^6/uL (4.00-5.40); WHITE BLOOD COUNT 5.1 10^3/uL (4.0-10.0)
[2020-11-01 15:39] LABS: ALBUMIN 3.5 GM/DL (3.2-5.2); ALT/SGPT 35 U/L (12-78); BILIRUBIN,TOTAL 0.3 MG/DL (0.2-1.0); BLOOD UREA NITROGEN 9 MG/DL (7-18); CALCIUM LEVEL 8.8 MG/DL (8.5-10.1); CARBON DIOXIDE LEVEL 31 MEQ/L (21-32); CHLORIDE LEVEL 108 MEQ/L (98-107); CREATININE FOR GFR 0.96 MG/DL (0.55-1.30); GLOMERULAR FILTRATION RATE > 60.0 (>60); GLUCOSE, FASTING 75 MG/DL (70-100); POTASSIUM SERUM 4.3 MEQ/L (3.5-5.1); SODIUM LEVEL 143 MEQ/L (136-145); TOTAL PROTEIN 6.5 GM/DL (6.4-8.2)
[2020-11-01 15:42] LABS: ERYTHROCYTE SEDIMENTATION RATE 1 mm/hr (0-20)
== END ==
LOC: M LAB 14:37
DX: D68.51 Activated protein C resistance (principal); R94.5 Abnormal results of liver function studies

== ENCOUNTER 2020-11-23 23:59 | Emergency (ER) | payer OTHER ==
[~2020-11-23] VITALS: Ht 160 cm; Wt 76.9 kg
[2020-11-24] MEDS ORDERED: diazePAM 10 MG TAB PO ONE (01:40)
[2020-11-24] MEDS ORDERED: ACETAMINOPHEN 500 MG TAB PO ONE (01:40)
[2020-11-24] MEDS ORDERED: LIDOCAINE 5% (LIDODERM) PATCH TD ONE (01:40)
[2020-11-24] MEDS ORDERED: LIDO5DIS41 TD (02:35)
[2020-11-24 02:39] VITALS: BP 124/67
[2020-11-24] MEDS ORDERED: **NOTE PATIENT COMMENT** MISC XX SCH (21:00)
== END 2020-11-24 02:47 | disposition home or self-care (01) ==
LOC: M ED 23:59
DX: M54.5 Low back pain (principal); Z79.899 Other long term (current) drug therapy; Z88.1 Allergy status to other antibiotic agents; Z88.2 Allergy status to sulfonamides; Z88.8 Allergy status to other drugs, medicaments and biological substances; F17.210 Nicotine dependence, cigarettes, uncomplicated

== ENCOUNTER 2021-07-06 23:28 | Emergency (ER) | payer OTHER ==
[~2021-07-06] VITALS: Ht 157.5 cm; Wt 83.3 kg
[~2021-07-06 23:28] MED LIST changes: +LIDO5DIS41 TD; -[UNRECOGNIZED DRUG - CODE]; +[UNRECOGNIZED DRUG - CODE] PO
[2021-07-07] MEDS ORDERED: NS 1,000 ML IV ONE
[2021-07-07] MEDS ORDERED: KETOROLAC 30 MG/ML 1ML VIAL IV ONE
[2021-07-07 00:45] LABS: BASO # 0.1 10^3/uL (0.0-0.2); BASO % 0.7 % (0.0-1.0); EOS # 0.2 10^3/uL (0.0-0.5); EOS % 3.3 % (0.0-3.0); HEMATOCRIT 51.7 % (36.0-47.0); HEMOGLOBIN 16.9 g/dl (12.0-15.5); LYMPH # 2.5 10^3/uL (1.5-5.0); LYMPH % 35.9 % (24.0-44.0); MEAN CORPUSCULAR HEMOGLOBIN 29.3 pg (27.0-33.0); MEAN CORPUSCULAR HGB CONC 32.7 g/dl (32.0-36.5); MEAN CORPUSCULAR VOLUME 89.8 fl (80.0-96.0); MONO # 0.6 10^3/uL (0.0-0.8); MONO % 9.3 % (2.0-8.0); NEUTROPHILS # 3.5 10^3/uL (1.5-8.5); NEUTROPHILS % 50.7 % (36.0-66.0); PLATELET COUNT, AUTOMATED 319 10^3/uL (150-450); RED BLOOD COUNT 5.76 10^6/uL (4.00-5.40); WHITE BLOOD COUNT 6.9 10^3/uL (4.0-10.0)
[2021-07-07 01:10] LABS: BILIRUBIN,DIRECT 0.2 MG/DL (0.0-0.2); BILIRUBIN,TOTAL 0.4 MG/DL (0.2-1.0); TOTAL PROTEIN 7.6 GM/DL (6.4-8.2)
[2021-07-07] MEDS ORDERED: MORPHINE 4 MG/ML 1ML VIAL/SYRINGE (J2270) IV ONE ×2 (01:25→03:35)
[2021-07-07] MEDS ORDERED: AUGM875T28 PO (03:57)
[2021-07-07 04:00] VITALS: BP 135/86
[2021-07-07] MEDS ORDERED: AUGMENTIN 875 MG TAB PO ONE ×3 (04:00)
[2021-07-30] MEDS ORDERED: ESOM20CA25 PO (11:42)
[2021-07-30] MEDS ORDERED: VITA200016 PO (11:42)
[2021-07-30] MEDS ORDERED: LAMO100T3 PO (11:42)
[2021-07-30] MEDS ORDERED: TRAZ-252 PO (11:42)
[2021-07-30] MEDS ORDERED: CETI-24 PO (11:42)
[2021-07-30] MEDS ORDERED: XARE20TA PO (11:42)
[2021-07-30] MEDS ORDERED: ALBU8.5H INH (11:42)
[2021-07-30] MEDS ORDERED: BUSP10TA PO (11:43)
[2021-08-16] MEDS ORDERED: XARE10TA PO (11:50)
== END 2021-07-07 04:14 | disposition home or self-care (01) ==
LOC: M ED 23:28
DX: T19.2XXA Foreign body in vulva and vagina, initial encounter (principal); D68.2 Hereditary deficiency of other clotting factors; Z88.1 Allergy status to other antibiotic agents; Z88.2 Allergy status to sulfonamides; Z88.8 Allergy status to other drugs, medicaments and biological substances; Z79.899 Other long term (current) drug therapy
CPT/HCPCS: 74176; 80047; 80076; 81001; 83605; 83690; 84702; 85025; 85379; 96361; 96374; 96375; 96376; 99284; J1885; J2270

== ENCOUNTER 2021-08-20 17:11 | Emergency (ER) | payer OTHER ==
[~2021-08-20] VITALS: Ht 160 cm; Wt 82.7 kg
[~2021-08-20 17:11] MED LIST changes: +ALBU8.5H INH; +AUGM875T28 PO; +BUSP10TA PO; +CETI-24 PO; +ESOM20CA25 PO; +LAMO100T3 PO; +TRAZ-252 PO; +VITA200016 PO; +XARE10TA PO; +XARE20TA PO
[2021-08-20] MEDS ORDERED: BUPR1TAB52 (17:55)
[2021-08-20] MEDS ORDERED: ONDANSETRON 4MG/2ML VIAL IV ONE (20:10)
[2021-08-20] MEDS ORDERED: NS 1,000 ML IV ONE (20:10)
[2021-08-20 20:56] LABS: BASO % 0.1 % (0.0-1.0); HEMATOCRIT 51.8 % (36.0-47.0); HEMOGLOBIN 17.5 g/dl (12.0-15.5); LYMPH # 1.2 10^3/uL (1.5-5.0); MEAN CORPUSCULAR HGB CONC 33.8 g/dl (32.0-36.5); MEAN CORPUSCULAR VOLUME 88.7 fl (80.0-96.0); MONO # 0.6 10^3/uL (0.0-0.8); MONO % 4.6 % (2.0-8.0); NEUTROPHILS # 11.7 10^3/uL (1.5-8.5); PLATELET COUNT, AUTOMATED 283 10^3/uL (150-450); RED BLOOD COUNT 5.84 10^6/uL (4.00-5.40); WHITE BLOOD COUNT 13.6 10^3/uL (4.0-10.0)
[2021-08-20 21:35] LABS: ALBUMIN 4.3 GM/DL (3.2-5.2); ALT/SGPT 68 U/L (12-78); BILIRUBIN,DIRECT 0.2 MG/DL (0.0-0.2); BLOOD UREA NITROGEN 17 MG/DL (7-18); CALCIUM LEVEL 9.3 MG/DL (8.5-10.1); CARBON DIOXIDE LEVEL 25 MEQ/L (21-32); CHLORIDE LEVEL 106 MEQ/L (98-107); CREATININE FOR GFR 1.06 MG/DL (0.55-1.30); GLOMERULAR FILTRATION RATE > 60.0 (>60); GLUCOSE, FASTING 93 MG/DL (70-100); HCG, SERUM QUALITATIVE NEGATIVE (NEGATIVE); LIPASE 116 U/L (73-393); POTASSIUM SERUM 4.9 MEQ/L (3.5-5.1); SODIUM LEVEL 141 MEQ/L (136-145); TOTAL PROTEIN 8.1 GM/DL (6.4-8.2)
[2021-08-20] MEDS ORDERED: ISOVUE-370 76% 100ML VIAL As Ordered ONE (22:42)
[2021-08-21 00:15] VITALS: BP 105/59
[2021-08-21] MEDS ORDERED: ONDA4TAB6 PO (00:15)
== END 2021-08-21 00:39 | disposition home or self-care (01) ==
LOC: M ED 17:11
DX: R10.9 Unspecified abdominal pain (principal); R11.2 Nausea with vomiting, unspecified; D68.2 Hereditary deficiency of other clotting factors; I73.00 Raynaud's syndrome without gangrene; Z86.718 Personal history of other venous thrombosis and embolism; Z79.899 Other long term (current) drug therapy; Z79.01 Long term (current) use of anticoagulants; Z88.1 Allergy status to other antibiotic agents; Z88.2 Allergy status to sulfonamides; Z88.8 Allergy status to other drugs, medicaments and biological substances
CPT/HCPCS: 74177; 80048; 80076; 83690; 84703; 85025; 93041; 96361; 96374; 99285; J2405; Q9967

== ENCOUNTER 2022-05-09 12:16 | Observation (INO) | payer OTHER ==
[~2022-05-09] VITALS: Ht 160 cm; Wt 79.4 kg
[~2022-05-09 12:16] MED LIST changes: +BUPR1TAB52; +ONDA4TAB6 PO
[2022-05-09 13:42] LABS: BASO % 0.4 % (0.0-1.0); EOS # 0.1 10^3/uL (0.0-0.5); HEMATOCRIT 47.2 % (36.0-47.0); HEMOGLOBIN 15.5 g/dl (12.0-15.5); LYMPH % 23.5 % (24.0-44.0); MEAN CORPUSCULAR HEMOGLOBIN 30.3 pg (27.0-33.0); MEAN CORPUSCULAR HGB CONC 32.8 g/dl (32.0-36.5); MEAN CORPUSCULAR VOLUME 92.2 fl (80.0-96.0); MONO # 0.6 10^3/uL (0.0-0.8); MONO % 7.1 % (2.0-8.0); NEUTROPHILS # 5.6 10^3/uL (1.5-8.5); NEUTROPHILS % 67.8 % (36.0-66.0); PLATELET COUNT, AUTOMATED 301 10^3/uL (150-450); RED BLOOD COUNT 5.12 10^6/uL (4.00-5.40); WHITE BLOOD COUNT 8.3 10^3/uL (4.0-10.0)
[2022-05-09] MEDS ORDERED: NS 1,000 ML IV ONE (14:00)
[2022-05-09] MEDS ORDERED: MORPHINE 4 MG/ML 1ML VIAL/SYRINGE IV ONE (14:15)
[2022-05-09] MEDS ORDERED: ONDANSETRON 4MG 2ML VIAL IV ONE (14:15)
[2022-05-09 14:20] LABS: HCG, SERUM QUALITATIVE NEGATIVE (NEGATIVE)
[2022-05-09] MEDS ORDERED: ISOVUE-370 76% 100ML VIAL As Ordered ONE (14:26)
[2022-05-09 14:42] LABS: ALT/SGPT 67 U/L (12-78); BILIRUBIN,DIRECT 0.3 MG/DL (0.0-0.2); BILIRUBIN,TOTAL 0.7 MG/DL (0.2-1.0); LIPASE 160 U/L (73-393); TOTAL PROTEIN 7.3 GM/DL (6.4-8.2)
[2022-05-09] MEDS ORDERED: PIPERACILLIN/TAZOBACTAM SOD 3.375 GM in D5W MINI-BAG PLUS 50 ML IV ONE (15:10)
[2022-05-09 15:19] LABS: INR 1.4; PROTHROMBIN TIME 17.4 SECONDS (12.5-14.5)
[2022-05-09] MEDS: HYDROMORPHONE HCL 0.5 MG/ 0.5 ML SYRINGE (J1170 PER 1) IV PRN ×3 (15:19→22:17)
[2022-05-09] MEDS ORDERED: BUPR150T12 PO (15:30)
[2022-05-09] MEDS ORDERED: MELO7.5T35 PO (15:30)
[2022-05-09] MEDS ORDERED: HOME MED LIST COMPLETE! XX SCH (15:30)
[2022-05-09 15:57] LABS: RSV AMPLIFICATION NEGATIVE (NEGATIVE)
[2022-05-09] MEDS ORDERED: ALBUTEROL 90 MCG/ACT 8GM HFA INHALER INH PRN (18:05)
[2022-05-09] MEDS ORDERED: NS 1,000 ML IV SCH (18:05)
[2022-05-09] MEDS ORDERED: KETOROLAC 30 MG/ML 1ML VIAL IV PRN (18:10)
[2022-05-09] MEDS ORDERED: HYDROMORPHONE HCL 0.5 MG/ 0.5 ML SYRINGE (J1170 PER 1) IV PRN (18:10)
[2022-05-09] MEDS: SODIUM CHLORIDE IV SCH (18:45)
[2022-05-09] MEDS: D5W IV SCH (18:45)
[2022-05-09] MEDS: ACETAMINOPHEN 500 MG TAB PO SCH (18:45)
[2022-05-09 20:33] VITALS: BP 122/78
[2022-05-09] MEDS ORDERED: ONDANSETRON 4MG 2ML VIAL IV PRN (21:00)
[2022-05-09] MEDS: busPIRone 10 MG TAB PO SCH (21:00)
[2022-05-09 22:15] LABS: HEMATOCRIT 39.8 % (36.0-47.0); MEAN CORPUSCULAR HEMOGLOBIN 30.6 pg (27.0-33.0); MEAN CORPUSCULAR HGB CONC 33.4 g/dl (32.0-36.5); MEAN CORPUSCULAR VOLUME 91.5 fl (80.0-96.0); PLATELET COUNT, AUTOMATED 238 10^3/uL (150-450); RED BLOOD COUNT 4.35 10^6/uL (4.00-5.40); WHITE BLOOD COUNT 4.9 10^3/uL (4.0-10.0)
[2022-05-09 22:17] LABS: HEMOGLOBIN 13.3 g/dl (12.0-15.5)
[2022-05-09] MEDS ORDERED: PROMETHAZINE 25MG/ML 1ML VIAL IV PRN (23:05)
[2022-05-10] MEDS: ACETAMINOPHEN 500 MG TAB PO SCH ×5 (00:07→23:57)
[2022-05-10 04:28] LABS: HEMATOCRIT 39.8 % (36.0-47.0); HEMOGLOBIN 13.1 g/dl (12.0-15.5); MEAN CORPUSCULAR HEMOGLOBIN 30.3 pg (27.0-33.0); MEAN CORPUSCULAR HGB CONC 32.9 g/dl (32.0-36.5); MEAN CORPUSCULAR VOLUME 92.1 fl (80.0-96.0); PLATELET COUNT, AUTOMATED 226 10^3/uL (150-450); RED BLOOD COUNT 4.32 10^6/uL (4.00-5.40); WHITE BLOOD COUNT 3.9 10^3/uL (4.0-10.0)
[2022-05-10 05:11] LABS: BLOOD UREA NITROGEN 7 MG/DL (7-18); CALCIUM LEVEL 7.8 MG/DL (8.5-10.1); CARBON DIOXIDE LEVEL 28 MEQ/L (21-32); CHLORIDE LEVEL 104 MEQ/L (98-107); CREATININE FOR GFR 0.86 MG/DL (0.55-1.30); GLOMERULAR FILTRATION RATE > 60.0 (>60); GLUCOSE, FASTING 119 MG/DL (70-100); POTASSIUM SERUM 3.3 MEQ/L (3.5-5.1); SODIUM LEVEL 134 MEQ/L (136-145)
[2022-05-10 05:20] VITALS: BP 108/82
[2022-05-10] MEDS: buPROPion **XL** TABLET 150MG (WELLBUTRIN XL) PO SCH (09:41)
[2022-05-10] MEDS: lamoTRIgine 100MG TAB PO SCH (09:42)
[2022-05-10] MEDS: CETIRIZINE (ZyrTEC) 10 MG TAB PO SCH (09:42)
[2022-05-10] MEDS: POTASSIUM CHLORIDE 10MEQ SR TABLET PO SCH ×2 (09:42→21:06)
[2022-05-10] MEDS: busPIRone 10 MG TAB PO SCH ×3 (09:42→21:06)
[2022-05-10] MEDS: HYDROMORPHONE HCL 0.5 MG/ 0.5 ML SYRINGE (J1170 PER 1) IV PRN (09:43)
[2022-05-10] MEDS: VITAMIN D 1,000 INTERNATIONAL UNITS TABLET PO SCH (09:43)
[2022-05-10 10:32] LABS: MEAN CORPUSCULAR HEMOGLOBIN 30.4 pg (27.0-33.0); MEAN CORPUSCULAR HGB CONC 32.5 g/dl (32.0-36.5); MEAN CORPUSCULAR VOLUME 93.5 fl (80.0-96.0); PLATELET COUNT, AUTOMATED 218 10^3/uL (150-450); RED BLOOD COUNT 4.28 10^6/uL (4.00-5.40); WHITE BLOOD COUNT 3.6 10^3/uL (4.0-10.0)
[2022-05-10] MEDS: SODIUM CHLORIDE IV SCH (11:38)
[2022-05-10] MEDS: D5W IV SCH (11:38)
[2022-05-10 12:01] VITALS: BP 108/65
[2022-05-10] MEDS ORDERED: oxyCODONE 5MG TAB PO PRN (12:10)
[2022-05-10] MEDS ORDERED: ONDANSETRON 4MG ORAL DISINTEGRATING TAB SL PRN (12:10)
[2022-05-10] MEDS: oxyCODONE 5MG TAB PO PRN (14:14)
[2022-05-10 16:31] LABS: HEMATOCRIT 41.1 % (36.0-47.0); HEMOGLOBIN 13.2 g/dl (12.0-15.5); MEAN CORPUSCULAR HEMOGLOBIN 30.1 pg (27.0-33.0); MEAN CORPUSCULAR HGB CONC 32.1 g/dl (32.0-36.5); MEAN CORPUSCULAR VOLUME 93.8 fl (80.0-96.0); PLATELET COUNT, AUTOMATED 237 10^3/uL (150-450); RED BLOOD COUNT 4.38 10^6/uL (4.00-5.40); WHITE BLOOD COUNT 2.8 10^3/uL (4.0-10.0)
[2022-05-10 20:00] VITALS: BP 117/65
[2022-05-10] MEDS: IBUPROFEN 800 MG TAB PO PRN (21:06)
[2022-05-11 04:00] VITALS: BP 123/71
[2022-05-11] MEDS: ACETAMINOPHEN 500 MG TAB PO SCH ×2 (05:36→12:12)
[2022-05-11] MEDS: oxyCODONE 5MG TAB PO PRN (07:49)
[2022-05-11 08:14] LABS: BASO % 0.5 % (0.0-1.0); EOS # 0.3 10^3/uL (0.0-0.5); EOS % 6.4 % (0.0-3.0); HEMATOCRIT 42.3 % (36.0-47.0); HEMOGLOBIN 13.7 g/dl (12.0-15.5); LYMPH # 2.2 10^3/uL (1.5-5.0); LYMPH % 55.3 % (24.0-44.0); MEAN CORPUSCULAR HEMOGLOBIN 30.1 pg (27.0-33.0); MEAN CORPUSCULAR HGB CONC 32.4 g/dl (32.0-36.5); MONO # 0.4 10^3/uL (0.0-0.8); MONO % 10.3 % (2.0-8.0); NEUTROPHILS # 1.1 10^3/uL (1.5-8.5); NEUTROPHILS % 27.5 % (36.0-66.0); PLATELET COUNT, AUTOMATED 249 10^3/uL (150-450); RED BLOOD COUNT 4.55 10^6/uL (4.00-5.40); WHITE BLOOD COUNT 3.9 10^3/uL (4.0-10.0)
[2022-05-11 08:19] LABS: PLATELET ESTIMATE NORMAL (NORMAL)
[2022-05-11 08:28] LABS: BLOOD UREA NITROGEN 10 MG/DL (7-18); CALCIUM LEVEL 8.2 MG/DL (8.5-10.1); CARBON DIOXIDE LEVEL 28 MEQ/L (21-32); CHLORIDE LEVEL 106 MEQ/L (98-107); CREATININE FOR GFR 0.92 MG/DL (0.55-1.30); GLOMERULAR FILTRATION RATE > 60.0 (>60); GLUCOSE, FASTING 85 MG/DL (70-100); POTASSIUM SERUM 4.3 MEQ/L (3.5-5.1); SODIUM LEVEL 138 MEQ/L (136-145)
[2022-05-11] MEDS: CETIRIZINE (ZyrTEC) 10 MG TAB PO SCH (08:33)
[2022-05-11] MEDS: busPIRone 10 MG TAB PO SCH (08:33)
[2022-05-11] MEDS: buPROPion **XL** TABLET 150MG (WELLBUTRIN XL) PO SCH (08:33)
[2022-05-11] MEDS: lamoTRIgine 100MG TAB PO SCH (08:33)
[2022-05-11] MEDS: VITAMIN D 1,000 INTERNATIONAL UNITS TABLET PO SCH (08:33)
[2022-05-11] MEDS: IBUPROFEN 800 MG TAB PO PRN (08:34)
[2022-05-11] MEDS ORDERED: ACET-683 PO (09:42)
[2022-05-11] MEDS ORDERED: ONDA4TAB6 SL (09:42)
[2022-05-11] MEDS ORDERED: IBUP80TA PO (09:42)
[2022-05-11] MEDS ORDERED: OXYC-517 PO (09:43)
== END 2022-05-11 13:07 | disposition home or self-care (01) ==
LOC: M ED 12:16 → M ED INP 12:17 → ENRESERV 19:05 → M 4MAIN 20:27
PROVIDERS: ADMIT Student in an Organized Health Care Education/Training Program; ATTEND Student in an Organized Health Care Education/Training Program
DX: N83.201 Unspecified ovarian cyst, right side (principal); E87.6 Hypokalemia; D68.2 Hereditary deficiency of other clotting factors; J45.909 Unspecified asthma, uncomplicated; F32.A Depression, unspecified; F41.9 Anxiety disorder, unspecified; E55.9 Vitamin D deficiency, unspecified; N80.9 Endometriosis, unspecified; I73.00 Raynaud's syndrome without gangrene; R10.31 Right lower quadrant pain; R11.2 Nausea with vomiting, unspecified; Z86.718 Personal history of other venous thrombosis and embolism; Z87.891 Personal history of nicotine dependence; F14.11 Cocaine abuse, in remission; F15.13 Other stimulant abuse with withdrawal; Z79.899 Other long term (current) drug therapy; Z79.01 Long term (current) use of anticoagulants; Z88.2 Allergy status to sulfonamides; Z88.8 Allergy status to other drugs, medicaments and biological substances
CPT/HCPCS: 36415; 74177; 76830; 76856; 80047; 80048; 80076; 81000; 81015; 83605; 83690; 84702; 84703; 85025; 85027; 85610; 85730; 87631; 93976; 96361; 96365; 96366; 96375; 96376; 99284; J1170; J1885; J2270; J2405; J2543; J2550

== ENCOUNTER → 2022-05-23 | Outpatient (REF) | payer OTHER ==
[~2022-05-23] MED LIST changes: +BUPR150T12 PO; +MELO7.5T35 PO; +ONDA4TAB6 SL; +OXYC-517 PO
[2022-05-23 17:13] LABS: BASO # 0.1 10^3/uL (0.0-0.2); EOS # 0.3 10^3/uL (0.0-0.5); EOS % 4.5 % (0.0-3.0); HEMATOCRIT 49.2 % (36.0-47.0); HEMOGLOBIN 15.7 g/dl (12.0-15.5); LYMPH # 1.5 10^3/uL (1.5-5.0); LYMPH % 24.4 % (24.0-44.0); MEAN CORPUSCULAR HEMOGLOBIN 30.4 pg (27.0-33.0); MEAN CORPUSCULAR HGB CONC 31.9 g/dl (32.0-36.5); MEAN CORPUSCULAR VOLUME 95.3 fl (80.0-96.0); MONO # 0.5 10^3/uL (0.0-0.8); NEUTROPHILS # 3.7 10^3/uL (1.5-8.5); NEUTROPHILS % 60.8 % (36.0-66.0); PLATELET COUNT, AUTOMATED 280 10^3/uL (150-450); RED BLOOD COUNT 5.16 10^6/uL (4.00-5.40)
== END ==
LOC: M LAB REF 16:27
PROVIDERS: ATTEND Family Medicine Addiction Medicine
DX: D72.819 Decreased white blood cell count, unspecified (principal)

== ENCOUNTER 2023-06-12 20:05 | Emergency (ER) | payer OTHER ==
[~2023-06-12 20:05] MED LIST changes: +SERT-141 PO; +TOPI-21; -TOPI50TA9; +ZOLO50TA PO
[2023-06-12] MEDS ORDERED: NS 1,000 ML IV ONE (20:15)
[2023-06-12 20:28] LABS: VENOUS BASE EXCESS 1.1 (-2.0-2.0); VENOUS HCO3 28.1 MMOL/L (23.0-27.0); VENOUS O2 SATURATION 58.5 % (60.0-80.0); VENOUS PARTIAL PRESSURE O2 32.2 mmHg (30.0-50.0); VENOUS PH 7.334 UNITS (7.330-7.430); VENOUS STANDARD HCO3 24.4 MMOL/L; VENOUS TOTAL CO2 29.7 MMOL/L (24.0-28.0)
[2023-06-12] MEDS ORDERED: LORazepam 2 MG/ML 1ML VIAL IV STA ×3 (20:34→21:37)
[2023-06-12 20:40] LABS: BASO # 0.1 10^3/uL (0.0-0.2); BASO % 0.7 % (0.0-1.0); EOS # 0.5 10^3/uL (0.0-0.5); EOS % 5.5 % (0.0-3.0); HEMATOCRIT 43.7 % (36.0-47.0); HEMOGLOBIN 14.5 g/dl (12.0-15.5); LYMPH # 2.4 10^3/uL (1.5-5.0); LYMPH % 25.6 % (24.0-44.0); MEAN CORPUSCULAR HEMOGLOBIN 29.8 pg (27.0-33.0); MEAN CORPUSCULAR HGB CONC 33.2 g/dl (32.0-36.5); MEAN CORPUSCULAR VOLUME 89.7 fl (80.0-96.0); MONO % 10.8 % (2.0-8.0); NEUTROPHILS # 5.4 10^3/uL (1.5-8.5); NEUTROPHILS % 57.3 % (36.0-66.0); PLATELET COUNT, AUTOMATED 293 10^3/uL (150-450); RED BLOOD COUNT 4.87 10^6/uL (4.00-5.40); WHITE BLOOD COUNT 9.5 10^3/uL (4.0-10.0)
[2023-06-12 20:54] LABS: ETHYL ALCOHOL (ETHANOL) < 0.003 % (0.000-0.010); OSMOLALITY SERUM 295 MOSM/KG (275-295)
[2023-06-12 20:55] LABS: HCG, SERUM QUANTITATIVE < 2.6 MIU/ML (<4.2)
[2023-06-12 20:56] LABS: ALBUMIN 3.6 G/DL (3.2-5.2); ALKALINE PHOSPHATASE 68 U/L (46-116); ALT/SGPT 115 U/L (7.0-40); AST/SGOT 58 U/L (<34); BILIRUBIN,DIRECT 0.2 MG/DL (<0.4); BILIRUBIN,TOTAL 0.4 MG/DL (0.3-1.2); BLOOD UREA NITROGEN 14 MG/DL (9-23); CALCIUM LEVEL 9.1 MG/DL (8.5-10.1); CARBON DIOXIDE LEVEL 31 MMOL/L (20-31); CHLORIDE LEVEL 102 MMOL/L (98-107); CREATININE FOR GFR 0.94 MG/DL (0.55-1.30); GLOMERULAR FILTRATION RATE > 60.0 (>60); GLUCOSE, FASTING 81 MG/DL (60-100); POTASSIUM SERUM 4.4 MMOL/L (3.5-5.1); SALICYLATE LEVEL < 3.0 MG/DL (<30); SODIUM LEVEL 141 MMOL/L (136-145); TOTAL PROTEIN 6.4 G/DL (5.7-8.2)
[2023-06-12 20:57] LABS: CPK CREATINE PHOSPHOKINASE 246 U/L (34-145)
[2023-06-12 20:58] LABS: THYROID STIMULATING HORMONE 6.752 uIU/ML (0.55-4.78)
[2023-06-12] MEDS ORDERED: OLANZapine INTRAMUSCULAR 10MG VIAL IM ONE (21:35)
[2023-06-12 23:40] LABS: AMPHETAMINES LEVEL URINE NEGATIVE (NEGATIVE); BARBITURATES URINE NEGATIVE (NEGATIVE); BENZODIAZEPINES URINE NEGATIVE (NEGATIVE); COCAINE METABOLITE URINE NEGATIVE (NEGATIVE); METHADONE URINE NEGATIVE (NEGATIVE); OPIATES URINE NEGATIVE (NEGATIVE); PHENCYCLIDINE URINE NEGATIVE (NEGATIVE)
[2023-06-12 23:43] LABS: CANNABINOIDS URINE POSITIVE (NEGATIVE)
[2023-06-13 16:25] VITALS: BP 171/92; TEMP 96.9; O2SAT 97
== END 2023-06-13 16:40 | disposition home or self-care (01) ==
LOC: M ED 20:05
DX: F19.10 Other psychoactive substance abuse, uncomplicated (principal); D68.59 Other primary thrombophilia; J45.909 Unspecified asthma, uncomplicated; Z79.899 Other long term (current) drug therapy; Z88.2 Allergy status to sulfonamides; Z88.5 Allergy status to narcotic agent; Z88.8 Allergy status to other drugs, medicaments and biological substances
CPT/HCPCS: 36415; 70450; 80048; 80076; 80143; 80307; 82077; 82550; 82803; 83605; 83930; 84443; 84702; 85025; 87486; 87581; 87633; 87798; 93005; 93041; 94760; 96372; 96374; 96376; 99285; J2060; S0166

== ENCOUNTER 2023-08-22 19:24 | Emergency (ER) | payer OTHER ==
[~2023-08-22] VITALS: Ht 160 cm; Wt 81.1 kg
[2023-08-22 19:25] VITALS: TEMP 98.4
[2023-08-22] MEDS ORDERED: SUBO8MIS SL (19:39)
[2023-08-23 01:48] VITALS: BP 120/73; O2SAT 99
== END 2023-08-23 01:50 | disposition home or self-care (01) ==
LOC: M ED 19:24
DX: S60.911A Unspecified superficial injury of right wrist, initial encounter (principal); W22.8XXA Striking against or struck by other objects, initial encounter; Y92.009 Unspecified place in unspecified non-institutional (private) residence as the place of occurrence of the external cause; Y93.89 Activity, other specified; Y99.8 Other external cause status; Z88.2 Allergy status to sulfonamides; Z88.8 Allergy status to other drugs, medicaments and biological substances; Z79.899 Other long term (current) drug therapy; Z79.51 Long term (current) use of inhaled steroids

== ENCOUNTER → 2023-08-26 | Outpatient (CLI) | payer OTHER ==
[~2023-08-26] MED LIST changes: +SUBO8MIS SL
== END ==
LOC: M RAD 10:41
PROVIDERS: ATTEND Physician Assistant
DX: T14.8XXA Other injury of unspecified body region, initial encounter (principal); Y93.9 Activity, unspecified; Y92.9 Unspecified place or not applicable

== ENCOUNTER → 2023-09-08 | Outpatient (REF) | payer OTHER, MEDICAID ==
[2023-09-08 17:33] LABS: ALBUMIN 3.7 G/DL (3.2-5.2); ALKALINE PHOSPHATASE 83 U/L (46-116); ALT/SGPT 40 U/L (7.0-40); AST/SGOT 33 U/L (<34); BILIRUBIN,TOTAL 0.4 MG/DL (0.3-1.2); BLOOD UREA NITROGEN 7 MG/DL (9-23); CALCIUM LEVEL 8.9 MG/DL (8.5-10.1); CARBON DIOXIDE LEVEL 29 MMOL/L (20-31); CHLORIDE LEVEL 109 MMOL/L (98-107); CREATININE FOR GFR 1.08 MG/DL (0.55-1.30); GLOMERULAR FILTRATION RATE > 60.0 (>60); GLUCOSE, FASTING 78 MG/DL (60-100); POTASSIUM SERUM 4.4 MMOL/L (3.5-5.1); SODIUM LEVEL 141 MMOL/L (136-145); TOTAL PROTEIN 6.2 G/DL (5.7-8.2)
[2023-09-08 17:37] LABS: THYROID STIMULATING HORMONE 2.445 uIU/ML (0.55-4.78)
== END ==
LOC: M LAB REF 16:27
PROVIDERS: ATTEND Family Medicine Addiction Medicine
DX: G56.03 Carpal tunnel syndrome, bilateral upper limbs (principal)

== ENCOUNTER → 2024-08-17 | Outpatient (REF) | payer OTHER, MEDICAID ==
[~2024-08-17] MED LIST changes: +ARIP1TAB PO; +BENA25CA4 PO; +DULO1CAP6 PO; +MIRT-89 PO; +ONDA-282 PO; +ONDA-282 SL; -ONDA4TAB6 PO; -ONDA4TAB6 SL
[2024-08-19 14:36] LABS: HPV APTIMA Not Detected (Not Detected)
== END ==
LOC: M SFHCWAGY 17:29
PROVIDERS: ATTEND Specialist
DX: Z01.419 Encounter for gynecological examination (general) (routine) without abnormal findings (principal); A59.9 Trichomoniasis, unspecified; N71.0 Acute inflammatory disease of uterus
CPT/HCPCS: 87624; G0123

== ENCOUNTER → 2024-08-27 | Outpatient (CLI) | payer OTHER | LOC: M RAD 06:50 | PROVIDERS: ATTEND Physician Assistant | DX: M70.62 Trochanteric bursitis, left hip (principal) ==

== ENCOUNTER → 2024-08-27 | Outpatient (CLI) | payer OTHER ==
[2024-08-27 08:21] LABS: BASO # 0.1 10^3/uL (0.0-0.2); BASO % 1.2 % (0.0-1.0); HEMATOCRIT 42.9 % (36.0-47.0); HEMOGLOBIN 14.5 g/dl (12.0-15.5); LYMPH # 1.7 10^3/uL (1.5-5.0); MEAN CORPUSCULAR HEMOGLOBIN 30.5 pg (27.0-33.0); MEAN CORPUSCULAR HGB CONC 33.8 g/dl (32.0-36.5); MEAN CORPUSCULAR VOLUME 90.3 fl (80.0-96.0); MONO # 0.3 10^3/uL (0.0-0.8); MONO % 8.4 % (2.0-8.0); NEUTROPHILS % 24.3 % (36.0-66.0); PLATELET COUNT, AUTOMATED 213 10^3/uL (150-450); RED BLOOD COUNT 4.75 10^6/uL (4.00-5.40); WHITE BLOOD COUNT 4.1 10^3/uL (4.0-10.0)
[2024-08-27 08:45] LABS: EOS % 24.1 % (0.0-3.0)
[2024-08-27 08:47] LABS: IRON (FE) 73 UG/DL (50-170)
[2024-08-27 09:01] LABS: ALBUMIN 3.3 G/DL (3.2-5.2); ALKALINE PHOSPHATASE 102 U/L (35-104); ALT/SGPT 47 U/L (7.0-40); AST/SGOT 26 U/L (<34); BILIRUBIN,TOTAL 0.3 MG/DL (0.3-1.2); BLOOD UREA NITROGEN 10 MG/DL (9-23); CARBON DIOXIDE LEVEL 31 MMOL/L (20-31); CHLORIDE LEVEL 103 MMOL/L (98-107); CHOLESTEROL LEVEL 115 MG/DL (<200); CHOLESTEROL RISK RATIO 2.88 (<5); CREATININE FOR GFR 1.03 MG/DL (0.55-1.30); FERRITIN 65.8 NG/ML (7.3-270.7); FOLATE 7.83 NG/ML (>5.4); GLOMERULAR FILTRATION RATE > 60.0 (>60); GLUCOSE, FASTING 87 MG/DL (60-100); HDL CHOLESTEROL 39.8 MG/DL (>40); LDL CHOLESTEROL 62.8 MG/DL (<100); NON-HDL-C 75.2 MG/DL; POTASSIUM SERUM 3.6 MMOL/L (3.5-5.1); SODIUM LEVEL 143 MMOL/L (136-145); THYROID STIMULATING HORMONE 4.008 uIU/ML (0.55-4.78); TOTAL 25(OH) VITAMIN D 41.2 NG/ML (20.0-100.0); TRIGLYCERIDES LEVEL 62 MG/DL (<150)
== END ==
LOC: M LAB 07:48
PROVIDERS: ATTEND Registered Nurse Psychiatric/Mental Health
DX: Z79.899 Other long term (current) drug therapy (principal)

== ENCOUNTER → 2024-08-31 | Outpatient (CLI) | payer OTHER ==
[~2024-08-31] MED LIST changes: +ISOVUE-300 61% 100ML VIAL As Ordered ONE; +LIDOCAINE 1% MDV 20ML VIAL As Ordered ONE; +PROHANCE 279.3MG/ML 5ML VIAL As Ordered ONE
== END ==
LOC: M RAD 07:01
PROVIDERS: ATTEND Physician Assistant
DX: M25.551 Pain in right hip (principal); S76.011A Strain of muscle, fascia and tendon of right hip, initial encounter; X58.XXXA Exposure to other specified factors, initial encounter; Y92.9 Unspecified place or not applicable
CPT/HCPCS: 27093; 73723; 77002; A9576; Q9967

== ENCOUNTER 2024-09-05 17:23 | Emergency (ER) | payer OTHER ==
[~2024-09-05] VITALS: Ht 160 cm; Wt 77.2 kg
[~2024-09-05 17:23] MED LIST changes: -ISOVUE-300 61% 100ML VIAL As Ordered ONE; -LIDOCAINE 1% MDV 20ML VIAL As Ordered ONE; -PROHANCE 279.3MG/ML 5ML VIAL As Ordered ONE
[2024-09-05] MEDS ORDERED: OFLOSO OTIC (18:05)
[2024-09-05] MEDS: ACETAMINOPHEN 500 MG TAB PO ONE (18:21)
[2024-09-05 18:56] VITALS: BP 104/58; TEMP 96.9; O2SAT 97
== END 2024-09-05 19:02 | disposition home or self-care (01) ==
LOC: M ED 17:23
DX: H60.92 Unspecified otitis externa, left ear (principal); F41.9 Anxiety disorder, unspecified; F32.A Depression, unspecified; G43.909 Migraine, unspecified, not intractable, without status migrainosus; Z79.899 Other long term (current) drug therapy; Z88.2 Allergy status to sulfonamides; Z88.8 Allergy status to other drugs, medicaments and biological substances

== ENCOUNTER → 2025-02-11 | Outpatient (REF) | payer OTHER ==
[~2025-02-11] MED LIST changes: +BUPR-670; -BUPR1TAB52; +LIDO1ADH93 TD; -LIDO5DIS41 TD; +OFLOSO OTIC; +TOPI-256; -TOPI25TA10
[2025-02-11 17:06] LABS: BASO # 0.1 10^3/uL (0.0-0.2); BASO % 1.1 % (0.0-1.0); EOS # 0.4 10^3/uL (0.0-0.5); EOS % 8.0 % (0.0-3.0); LYMPH # 2.0 10^3/uL (1.5-5.0); LYMPH % 43.7 % (24.0-44.0); MONO # 0.5 10^3/uL (0.0-0.8); MONO % 9.7 % (2.0-8.0); NEUTROPHILS # 1.8 10^3/uL (1.5-8.5); NEUTROPHILS % 37.5 % (36.0-66.0); PLATELET COUNT, AUTOMATED 317 10^3/uL (150-450)
[2025-02-11 17:31] LABS: FREE T4 1.13 NG/DL (0.89-1.76)
[2025-02-11 17:32] LABS: ALT/SGPT 92 U/L (7.0-40); AST/SGOT 48 U/L (<34); CALCIUM LEVEL 8.8 MG/DL (8.5-10.1); CARBON DIOXIDE LEVEL 25 MMOL/L (20-31); CHLORIDE LEVEL 106 MMOL/L (98-107); CREATININE FOR GFR 1.34 MG/DL (0.55-1.30); GLOMERULAR FILTRATION RATE 52.1 (>60); POTASSIUM SERUM 4.7 MMOL/L (3.5-5.1); SODIUM LEVEL 142 MMOL/L (136-145)
[2025-02-11 18:05] LABS: HEPATITIS C VIRUS ABY INDEX < 0.02 INDEX (<0.8)
== END ==
LOC: M LAB REF 16:18
PROVIDERS: ATTEND Family Medicine Addiction Medicine
DX: E66.3 Overweight (principal)

== ENCOUNTER → 2025-03-07 | Outpatient (REF) | payer OTHER ==
[2025-03-07 15:33] LABS: ALT/SGPT 66.0 U/L (7.0-40); AST/SGOT 41.0 U/L (<34); CALCIUM LEVEL 9.6 MG/DL (8.5-10.1); CARBON DIOXIDE LEVEL 25.0 MMOL/L (20-31); CHLORIDE LEVEL 106.0 MMOL/L (98-107); CREATININE FOR GFR 1.14 MG/DL (0.55-1.30); GLOMERULAR FILTRATION RATE 63.2 (>60); POTASSIUM SERUM 4.1 MMOL/L (3.5-5.1); SODIUM LEVEL 142.0 MMOL/L (136-145)
== END ==
LOC: M LAB REF 14:22
PROVIDERS: ATTEND Family Medicine Addiction Medicine
DX: N28.9 Disorder of kidney and ureter, unspecified (principal)

== ENCOUNTER 2025-04-20 17:07 | Emergency (ER) | payer OTHER ==
[~2025-04-20] VITALS: Ht 152.4 cm; Wt 84.7 kg
[2025-04-20 17:52] LABS: BASO # 0.0 10^3/uL (0.0-0.2); BASO % 0.6 % (0.0-1.0); EOS # 0.3 10^3/uL (0.0-0.5); EOS % 6.5 % (0.0-3.0); LYMPH # 2.1 10^3/uL (1.5-5.0); LYMPH % 41.6 % (24.0-44.0); MONO # 0.4 10^3/uL (0.0-0.8); MONO % 7.5 % (2.0-8.0); NEUTROPHILS # 2.2 10^3/uL (1.5-8.5); NEUTROPHILS % 43.6 % (36.0-66.0); PLATELET COUNT, AUTOMATED 384 10^3/uL (150-450)
[2025-04-20 18:17] LABS: CK-MB VALUE MASS 3.5 NG/ML (<3.6)
[2025-04-20 18:20] LABS: CALCIUM LEVEL 9.4 MG/DL (8.5-10.1); CARBON DIOXIDE LEVEL 26 MMOL/L (20-31); CHLORIDE LEVEL 105 MMOL/L (98-107); CREATININE FOR GFR 1.12 MG/DL (0.55-1.30); GLOMERULAR FILTRATION RATE 64.6 (>60); POTASSIUM SERUM 4.3 MMOL/L (3.5-5.1); SODIUM LEVEL 139 MMOL/L (136-145)
[2025-04-20 18:24] LABS: CPK CREATINE PHOSPHOKINASE 229 U/L (34-145); MB/CK RELATIVE INDEX 1.52 (< OR =4)
[2025-04-20 19:49] LABS: CK-MB VALUE MASS 2.8 NG/ML (<3.6); CPK CREATINE PHOSPHOKINASE 229 U/L (34-145); MB/CK RELATIVE INDEX 1.22 (< OR =4)
[2025-04-20 20:35] VITALS: BP 126/64; TEMP 99.3; O2SAT 99
== END 2025-04-20 20:37 | disposition home or self-care (01) ==
LOC: M ED 17:07 → EDBD 17:07 → M ED 20:37
DX: R07.9 Chest pain, unspecified (principal); J45.909 Unspecified asthma, uncomplicated; G40.909 Epilepsy, unspecified, not intractable, without status epilepticus; K21.9 Gastro-esophageal reflux disease without esophagitis; G43.909 Migraine, unspecified, not intractable, without status migrainosus; F41.9 Anxiety disorder, unspecified; F32.9 Major depressive disorder, single episode, unspecified; D68.51 Activated protein C resistance; F17.290 Nicotine dependence, other tobacco product, uncomplicated; Z79.01 Long term (current) use of anticoagulants; Z79.899 Other long term (current) drug therapy; Z88.2 Allergy status to sulfonamides; Z88.8 Allergy status to other drugs, medicaments and biological substances

== ENCOUNTER 2025-05-09 21:12 | Emergency (ER) | payer OTHER ==
[~2025-05-09] VITALS: Ht 160 cm; Wt 81.8 kg
[2025-05-09 22:04] VITALS: BP 135/82; TEMP 97.3; O2SAT 99
[2025-05-10 00:14] LABS: AMPHETAMINES LEVEL URINE NEGATIVE (NEGATIVE); BARBITURATES URINE NEGATIVE (NEGATIVE); BENZODIAZEPINES URINE NEGATIVE (NEGATIVE); CANNABINOIDS URINE NEGATIVE (NEGATIVE); COCAINE METABOLITE URINE NEGATIVE (NEGATIVE); OPIATES URINE NEGATIVE (NEGATIVE); PHENCYCLIDINE URINE NEGATIVE (NEGATIVE)
[2025-05-10 00:15] LABS: ETHYL ALCOHOL (ETHANOL) < 0.003 % (0.000-0.010)
[2025-05-10 00:17] LABS: ALT/SGPT 100 U/L (7.0-40); AST/SGOT 50 U/L (<34); CALCIUM LEVEL 10.1 MG/DL (8.5-10.1); CARBON DIOXIDE LEVEL 29 MMOL/L (20-31); CHLORIDE LEVEL 105 MMOL/L (98-107); CREATININE FOR GFR 0.97 MG/DL (0.55-1.30); GLOMERULAR FILTRATION RATE 76.7 (>60); POTASSIUM SERUM 4.8 MMOL/L (3.5-5.1); SALICYLATE LEVEL < 3.0 MG/DL (<30); SODIUM LEVEL 142 MMOL/L (136-145)
[2025-05-10 00:32] LABS: METHADONE URINE POSITIVE (NEGATIVE)
[2025-05-10 00:40] LABS: PLATELET COUNT, AUTOMATED 293 10^3/uL (150-450)
== END 2025-05-10 04:30 | disposition home or self-care (01) ==
LOC: M ED 21:12
DX: F43.0 Acute stress reaction (principal); J45.909 Unspecified asthma, uncomplicated; R56.9 Unspecified convulsions; K21.9 Gastro-esophageal reflux disease without esophagitis; F41.9 Anxiety disorder, unspecified; F32.A Depression, unspecified; Z86.718 Personal history of other venous thrombosis and embolism; D68.51 Activated protein C resistance; F17.290 Nicotine dependence, other tobacco product, uncomplicated; Z79.899 Other long term (current) drug therapy; Z88.2 Allergy status to sulfonamides; Z88.8 Allergy status to other drugs, medicaments and biological substances

== ENCOUNTER → 2025-05-17 | Outpatient (CLI) | payer OTHER | LOC: M RAD 08:12 | DX: R74.8 Abnormal levels of other serum enzymes (principal) ==

== ENCOUNTER 2025-06-04 20:02 | Emergency (ER) | payer OTHER ==
[~2025-06-04] VITALS: Ht 160 cm; Wt 86.5 kg
[2025-06-04 22:27] VITALS: TEMP 97.7
[2025-06-05] MEDS: KETOROLAC 30 MG/ML 1 ML VIAL IV ONE (01:10)
[2025-06-05] MEDS: dexAMETHasone 4 MG/ML 1 ML VIAL IV ONE (01:10)
[2025-06-05] MEDS: NS (Normal Saline) 0.9% 1,000 ML IV ONE (01:10)
[2025-06-05] MEDS: ACETAMINOPHEN *IV* 1,000 MG in IV 1 EA IV ONE (01:11)
[2025-06-05] MEDS: MAG SULF 1GM/100ML (MAG RUN) 1 GM in IV 1 EA IV ONE (01:11)
[2025-06-05 03:32] VITALS: BP 129/74; O2SAT 98
== END 2025-06-05 03:35 | disposition home or self-care (01) ==
LOC: M ED 20:02
DX: G43.909 Migraine, unspecified, not intractable, without status migrainosus (principal); R56.9 Unspecified convulsions; Z86.718 Personal history of other venous thrombosis and embolism; Z88.2 Allergy status to sulfonamides; Z88.8 Allergy status to other drugs, medicaments and biological substances
CPT/HCPCS: 70450; 96365; 96366; 96368; 96375; 99284; J0134; J1100; J1885; J2765; J3475